=== PATIENT | female | born 1950 | race Caucasian/White ===

== ENCOUNTER → 2019-12-06 10:04 | Outpatient (CLI) | payer MEDICARE, SELFPAY ==
--- NOTE | ~2019-12-06 | MM_ITS ---
EXAMINATION: MM screening diego BI w vikash HISTORY: Screening TECHNIQUE: Craniocaudal and mediolateral oblique 3-D tomosynthesis images were obtained and synthetic 2-D images were generated. CAD analysis was submitted and interpreted. COMPARISON: Comparison to multiple prior studies sequentially, with oldest reviewed study dated 06/2013. BREAST PARENCHYMAL COMPOSITION: There are scattered areas of fibroglandular density. FINDINGS: There is clustered nonspecific calcifications in the lateral central aspect of the right br east, middle third. No mammographic evidence for malignancy in the left breast. IMPRESSION: 1. Clustered nonspecific right breast calcifications laterally. 2. Magnification views are recommended. BI-RADS Category 0: Incomplete: Needs additional imaging evaluation. Reviewed, dictated and finalized at location A.
--- NOTE | ~2019-12-06 | DEXA_ITS ---
Bone Density Report Name: Giulia Nair Age: 69 Sex: Female Ethnicity: White Date of : 1950 Indication: postmenopausal; screening for osteoporosis; height loss; Referring Provider: Daisy Coughlin Study: Bone densitometry was performed. Exam Date: December 06, 2019 Accession number: [id number] Bone Density: Region BMD T-score Z-score Classification AP Spine (L2, L3, L4) 1.019 -0.5 1.7 Normal Femoral Neck (Left) 0.815 -0.3 1.5 Normal Total Hip (Left) 1.007 0.5 2.1 Normal Femoral Neck (Right) 0.911 0.6 2.4 Normal Total Hip (Right) 1.009 0.6 2.1 Normal Total Hip Mean 1.008 0.6 2.1 Normal World Health Organization criteria for BMD impression classify patients as: Normal (T-score at or above -1.0), Osteopenia (T-score between -1.0 and -2.5), or Osteoporosis (T-score at or below -2.5). 10-year Fracture Risk: FRAX not reported because: All T-scores for Spine Total, Hip Total, Femoral Neck at or above -1.0 Clinical Information Provided by Patient: Patient maximum height was 63.3 Menopause Age: 54 No regular weight bearing exercise Onset of menses at age 12 Number of children 1 Impression: The patient has normal bone mass. Discussion: BONE DENSITY IS ABOVE THE MINIMUM DESIRABLE LEVEL AT ALL SKELETAL SITES TESTED. This patient?s bone mineral density is above the minimum desirable level (T-score -1.0 or better) at all sites measured. The patient should follow a healthful lifestyle (good nutrition with adequate calcium and vitamin D, and appropriate weight-bearing exercise). Follow-Up: Consider repeating this study in 5 years or sooner if there is some new clinical indication. Reported by: MARTIN on 12/06/2019 11:05:00 AM. Reviewed, dictated and finalized at location AHalle [facility]
== END ==
PROVIDERS: PCP Family Medicine; Visit Provider Student in an Organized Health Care Education/Training Program
DX: Z12.31 Encounter for screening mammogram for malignant neoplasm of breast (principal); Z78.0 Asymptomatic menopausal state; R92.8 Other abnormal and inconclusive findings on diagnostic imaging of breast
CPT/HCPCS: 77063; 77067; 77080

== ENCOUNTER → 2019-12-25 14:06 | Outpatient (CLI) | payer MEDICARE, SELFPAY ==
--- NOTE | ~2019-12-25 | MM_ITS ---
EXAMINATION: MM diagnostic mammo unilat RT HISTORY: Follow-up right breast calcifications TECHNIQUE: Additional 3-D tomosynthesis images of the right breast were performed and synthetic 2-D i mages were generated. CAD analysis was submitted and interpreted. COMPARISON: 12/06/2019 BREAST PARENCHYMAL COMPOSITION: Breast composed of scattered areas of fibroglandular density FINDINGS: Right breast calcifications in the outer aspect of the right breast have a benign appearanc e with spot magnification and mediolateral views. No suspicious calcifications, masses or architectur al distortion are identified to suggest malignancy. IMPRESSION: 1. No mammographic evidence for malignancy in the right breast. Benign findings. 2. Routine yearly screening mammogram and regular clinical breast examination are recommended. BI-RADS Category 2: Benign finding(s). Reviewed, dictated and finalized at location A. IMPRESSION: 1. No mammographic evidence for malignancy in the right breast. Benign findings . 2. Routine yearly screening mammogram and regular clinical breast examination a re recommended. BI-RADS Category 2: Benign finding(s).
== END ==
PROVIDERS: Visit Provider Student in an Organized Health Care Education/Training Program
DX: R92.8 Other abnormal and inconclusive findings on diagnostic imaging of breast (principal)
CPT/HCPCS: 77065

== ENCOUNTER 2021-02-26 09:27 | Outpatient (CLI) | payer MEDICARE, SELFPAY ==
--- NOTE | ~2021-02-26 | XR_ITS ---
XR knee RT 3V DATE: 02/26/2021 10:49 INDICATION: Bilateral knee pain TECHNIQUE: AP, lateral, sunrise views COMPARISON: None FINDINGS: There is tricompartment osteoarthritis, most prominent at the patellofemoral and medial com partments. Mild knee joint effusion is suggested. Diffuse osteopenia. Patellar enthesopathy at the quadriceps tendon insertion site. No fracture, dislocation, periosteal reaction or bone destruction, radiopaque intra-articular loose b shruthi or chondrocalcinosis is detected. IMPRESSION: Diffuse osteopenia Tricompartment osteoarthritis, most prominent at the medial and patellofemoral compartments Reviewed, dictated and finalized at location B.
--- NOTE | ~2021-02-26 | XR_ITS ---
XR knee LT 3V DATE: 02/26/2021 10:49 INDICATION: Chronic bilateral knee pain TECHNIQUE: AP, lateral and sunrise views COMPARISON: 11/02/2013 left lower leg FINDINGS: There is tricompartment osteoarthritis involving the patellofemoral and particularly the me dial compartments most prominently. There is prominent loss of joint space at the medial compartment with prominent periarticular spurring. There is moderate particular spurring of the patella and minim al periarticular spurring at the lateral compartment. No fracture or dislocation or joint effusion, periosteal reaction or bone destruction or radiopaque i ntra-articular loose body or chondrocalcinosis. Diffuse osteopenia. IMPRESSION: Tricompartment osteoarthritis, most prominent at the medial and patellofemoral compartmen ts Osteopenia Reviewed, dictated and finalized at location B. IMPRESSION: Tricompartment osteoarthritis, most prominent at the medial and pat ellofemoral compartments Osteopenia
== END 2021-02-26 09:28 | disposition home or self-care (01) ==
LOC: ANHIMG 09:31
PROVIDERS: PCP Family Medicine; Visit Provider Family Medicine
DX: M25.561 Pain in right knee (principal); M25.562 Pain in left knee; M85.89 Other specified disorders of bone density and structure, multiple sites; M17.0 Bilateral primary osteoarthritis of knee
CPT/HCPCS: 73562

== ENCOUNTER → 2021-04-03 15:11 | Outpatient (CLI) | payer MEDICARE, SELFPAY ==
--- NOTE | ~2021-04-03 | MM_ITS ---
EXAMINATION: MM screening diego BI w vikash HISTORY: Screening mammogram, family history of breast cancer in her mother. TECHNIQUE: Craniocaudal and mediolateral oblique 3-D tomosynthesis images were obtained and synthetic 2-D images were generated. CAD analysis was submitted and interpreted. COMPARISON: 12/25/2019, 12/06/2019 08/03/2018 BREAST PARENCHYMAL COMPOSITION: The breasts are almost entirely fatty. FINDINGS: Scattered benign-appearing calcifications are present. There is no evidence of suspicious m ass, calcification, or architectural distortion to suggest malignancy in either breast. There has bee n no suspicious interval change. IMPRESSION: 1. No mammographic evidence of malignancy. 2. Recommend routine screening mammography in one year. BI-RADS Category 2: Benign finding(s). Reviewed, dictated and finalized at location A. GE DOOR HANGER
== END ==
PROVIDERS: Visit Provider Family Medicine
DX: Z12.31 Encounter for screening mammogram for malignant neoplasm of breast (principal)
CPT/HCPCS: 77063; 77067

== ENCOUNTER → 2022-04-05 10:57 | Outpatient (CLI) | payer MEDICARE, SELFPAY ==
--- NOTE | ~2022-04-05 | MM_ITS ---
EXAMINATION: MM screening diego BI w vikash HISTORY: Screening mammogram TECHNIQUE: Craniocaudal and mediolateral oblique 3-D tomosynthesis images were obtained and synthetic 2-D images were generated. CAD analysis was submitted and interpreted. COMPARISON: 04/03/2021 bilateral screening mammogram 12/25/2019 diagnostic right mammogram 12/06/2019, 08/03/2018 bilateral screening mammogram examinations BREAST PARENCHYMAL COMPOSITION: There are scattered areas of fibroglandular density. FINDINGS: Right breast: There is an irregular asymmetric opacity at mid depth in the inner aspect of the mid ri ght breast (craniocaudal Tomosynthesis image 26/58). Diagnostic right mammogram and right breast ultrasound examination are recommended Left breast: There is no evidence of suspicious mass, calcification, or architectural distortion to s uggest malignancy in either breast. There has been no suspicious interval change. IMPRESSION: 1. 9 mm asymmetric irregular opacity in the inner mid right breast 2. Diagnostic right mammogram and right breast ultrasound examination are recommended BI-RADS Category 0: Incomplete: Needs additional imaging evaluation. Reviewed, dictated and finalized at location A. ESS STUDIES TEACHER IMPRESSION: 1. 9 mm asymmetric irregular opacity in the inner mid right breast 2. Diagnostic right mammogram and right breast ultrasound examination are recom mended BI-RADS Category 0: Incomplete: Needs additional imaging evaluation.
--- NOTE | ~2022-04-05 | DEXA_ITS ---
Bone Density Report Name: LYNETTE FRIEDMAN Age: 72 Sex: Female Ethnicity: White Date of : 1950 Indication: postmenopausal; screening for osteoporosis; height loss; Referring Provider: Daisy Coughlin Study: Bone densitometry was performed. Exam Date: April 05, 2022 Accession number: [id number] Bone Density: Region BMD T-score Z-score Classification AP Spine (L2, L3, L4) 1.015 -0.6 1.8 Normal Femoral Neck (Left) 0.769 -0.7 1.2 Normal Total Hip (Left) 0.979 0.3 2.0 Normal Femoral Neck (Right) 0.670 -1.6 0.4 Osteopenia Total Hip (Right) 0.964 0.2 1.9 Normal Total Hip Mean 0.972 0.3 2.0 Normal World Health Organization criteria for BMD impression classify patients as: Normal (T-score at or above -1.0), Osteopenia (T-score between -1.0 and -2.5), or Osteoporosis (T-score at or below -2.5). 10-year Fracture Risk(1): Major Osteoporotic Fracture 10% Hip Fracture 1.9% Reported Risk Factors: [place] (), Neck BMD=0.670, BMI=33.8 (1) FRAX(R) Version 3.08. Fracture probability calculated for an untreated patient. Fracture probability may be lower if the patient has received treatment. Previous Exams: Region Exam Age BMD T-score BMD Change BMD Change Date g/cm2 vs Baseline vs Previous AP Spine(L2, L3, L4) 04/05/2022 72 1.015 -0.6 -0.005 -0.005 12/06/2019 69 1.019 -0.5 Total Hip(Left) 04/05/2022 72 0.979 0.3 -0.027 -0.027 12/06/2019 69 1.007 0.5 Total Hip(Right) 04/05/2022 72 0.964 0.2 -0.045 -0.045 12/06/2019 69 1.009 0.6 *Denotes significance at 95% confidence level, LSC for AP Spine = 0.022 g/cm2, LSC for Total Hip = 0.027 g/cm2 Clinical Information Provided by Patient: Has used the following medications: Vitamin D, Calcium, MTV, LEVOTHYROXINE Patient maximum height was 63.2 Menopause Age: 54 Onset of menses at age 12 Number of children 1 Impression: The patient has low bone mass, based on the Right Femoral Neck T-score. The patient has an estimated ten-year risk of hip fracture of 1.9% and an estimated ten-year risk of major fracture of 10%, based on the WHO FRAX algorithm. No significant bone loss was observed. Discussion: BONE DENSITY IS LOW AT ONE OR MORE SKELETAL SITES. This patient's lowest T-score is low at one or more skeletal sites. It meets the World Health Organization's (WHO) criteria for ?low bone mass? (T-score between -1.0
== END ==
PROVIDERS: PCP Family Medicine; Visit Provider Student in an Organized Health Care Education/Training Program
DX: Z12.31 Encounter for screening mammogram for malignant neoplasm of breast (principal); Z78.0 Asymptomatic menopausal state; R92.8 Other abnormal and inconclusive findings on diagnostic imaging of breast; M85.851 Other specified disorders of bone density and structure, right thigh
CPT/HCPCS: 77063; 77067; 77080

== ENCOUNTER → 2022-04-26 07:43 | Outpatient (CLI) | payer MEDICARE, SELFPAY ==
--- NOTE | ~2022-04-26 | MMUS_ITS ---
EXAMINATION: MM diagnostic diego RT w vikash, US breast RT complete HISTORY: Follow-up right breast asymmetry TECHNIQUE: Additional 3-D tomosynthesis images of the right breast were performed and synthetic 2-D i mages were generated. CAD analysis was submitted and interpreted. High resolution complete right [place] st ultrasound was performed. COMPARISON: Comparison to multiple prior studies sequentially, with oldest reviewed study dated 01/2018. BREAST PARENCHYMAL COMPOSITION: Breast composed of scattered areas of fibroglandular density FINDINGS: MAMMOGRAPHIC FINDINGS: Persistent focal asymmetry in the central aspect of the right breast on CC view, middle third. There is no corresponding abnormality seen on MLO or mediolateral views. No suspicious calcifications. ULTRASOUND: Limited right breast ultrasound: At 12:00, 7.5 cm from the nipple there is an oval hypoechoic mass me asuring 4 mm maximum dimension. This mass is circumscribed, wider than tall, no internal vascularity and no significant posterior features. At 4:00, 5 cm from the nipple there is a 5 mm cyst. IMPRESSION: 1. Probable benign findings of the right breast. 2. Recommend 6 month follow-up diagnostic right mammogram and. Ultrasound BI-RADS category 3, probably benign findings. Reviewed, dictated and finalized at location B. R TECHNOLOGIST IMPRESSION: 1. Probable benign findings of the right breast. 2. Recommend 6 month follow-up diagnostic right mammogram and. Ultrasound BI-RADS category 3, probably benign findings.
== END ==
PROVIDERS: PCP Family Medicine; Visit Provider Student in an Organized Health Care Education/Training Program
DX: R92.8 Other abnormal and inconclusive findings on diagnostic imaging of breast (principal)
CPT/HCPCS: 76641; 77061; 77065; G0279

== ENCOUNTER 2022-11-05 09:53 | Outpatient (CLI) | payer MEDICARE, SELFPAY ==
--- NOTE | ~2022-11-05 | US_ITS ---
Consultation US DATE: 11/05/2022 11:11 INDICATION: Patient presented for biopsy of reported 4 mm right breast mass at 12:00 7.5 cm from nipp le TECHNIQUE: Real-time imaging was performed at 12:00 7.5 cm from nipple COMPARISON: 10/2022 and limited right breast ultrasound 10/18/2022 diagnostic right mammogram FINDINGS: No suspicious mass or shadowing is detected at 12:00 7.5 cm from the nipple. IMPRESSION: Biopsy was canceled; no suspicious mass or shadowing was detected BI-RADS Category 2: Benign Reviewed, dictated and finalized at Location A. Reviewed, dictated and finalized at location A.
== END 2022-11-05 09:54 | disposition home or self-care (01) ==
PROVIDERS: PCP Family Medicine; Visit Provider Surgery
DX: R92.8 Other abnormal and inconclusive findings on diagnostic imaging of breast (principal)
CPT/HCPCS: 99199

== ENCOUNTER → 2023-03-30 09:50 | Outpatient (CLI) | payer MEDICARE, SELFPAY ==
--- NOTE | ~2023-03-30 | MMUS_ITS ---
EXAMINATION: MM diagnostic diego BI w vikash, US breast RT limited HISTORY: Six-month follow-up for probably benign right breast asymmetry TECHNIQUE: Craniocaudal, mediolateral, and mediolateral oblique 3-D tomosynthesis images of the keshia ts were performed and synthetic 2-D images were generated. CAD analysis was submitted and interpreted . High resolution limited right breast ultrasound was performed. COMPARISON: 10/18/2022, 04/26/2022, 04/05/2022, 04/03/2021, 12/25/2019 BREAST PARENCHYMAL COMPOSITION: There are scattered areas of fibroglandular density. FINDINGS: MAMMOGRAPHIC FINDINGS: An asymmetry in the middle third of the right breast at the 3:00 location, 7 cm from the nipple is st able with spot compression when compared to prior mammograms dating back to 2020. There has been no s uspicious interval change. No suspicious mass, calcification, or architectural distortion are identif ied in the left breast. ULTRASOUND: A previously described sonographically detected mass at the 12:00 location, 7 cm from the nipple demo nstrates decrease in size. IMPRESSION: 1. No mammographic or sonographic evidence of malignancy. 2. Recommend routine screening mammography in one year. BI-RADS Category 2: Benign finding(s). Reviewed, dictated and finalized at location A. AL FUND SALES AGENT IMPRESSION: 1. No mammographic or sonographic evidence of malignancy. 2. Recommend routine screening mammography in one year. BI-RADS Category 2: Benign finding(s).
== END ==
PROVIDERS: PCP Family Medicine; Visit Provider Surgery
DX: N63.10 Unspecified lump in the right breast, unspecified quadrant (principal); R92.8 Other abnormal and inconclusive findings on diagnostic imaging of breast
CPT/HCPCS: 76642; 77062; 77066; G0279

== ENCOUNTER 2023-08-23 22:50 | Emergency (ER) | payer MEDICARE, MEDICAID, SELFPAY ==
--- NOTE | ~2023-08-23 | XR_ITS ---
Clinical Indication: Fatigue PA and lateral views of the chest: Comparison: 04/16/2018 Findings: The lungs are clear, without evidence of focal consolidation or pleural effusion. Cardiome diastinal silhouette is within normal limits. Bones and soft tissues are unremarkable. Impression: Normal chest. Reviewed, dictated and finalized at location . Impression: Normal chest.
[2023-08-23 22:53] VITALS: BP 141/60; PULSE 96; RESP 20; TEMP 37.1; O2SAT 94
[2023-08-23 23:12] VITALS: O2SAT 96
[2023-08-23 23:13] VITALS: BP 131/61; PULSE 87; RESP 19; TEMP 36.9; O2SAT 95
--- NOTE | 2023-08-23 23:21 | ECG_ITS ---
Measurements Intervals [place] Rate: 95 P: 37 MD: 147 QRS: -28 QRSD: 94 T: 15 QT: 335 AVG RR 630 QTc: 387 QTcB 422 QTcF 390 Interpretive Statements SINUS RHYTHM POSSIBLE ANTERIOR MYOCARDIAL INFARCTION, PROBABLY OLD[30 ms Q WAVE IN V3/V4, OR R < 0.2mV IN V4] PROBABLE OLD MYOCARDIAL INFARCT BORDERLINE ECG SEE SCANNED COPY FOR SIGNATURE MTDD
[2023-08-23 23:41] LABS: Influenza A QL RT-PCR Negative (Negative); Influenza B QL RT-PCR Negative (Negative); RSV RNA, RT-PCR Negative (Negative); SARS-CoV-2 RNA PCR Negative (Negative)
--- NOTE | 2023-08-24 00:01 | ED.GENADULT ---
HPI - General Adult General Chief complaint: Upper Respiratory Infection Stated complaint: Cold chills, cannot get warm, cough, chest tight Time Seen by Provider: 08/23/23 23:36 Source: patient Mode of arrival: ambulatory Limitations: no limitations History of Present Illness HPI narrative: Patient is a 73-year-old female who presents the ED with report of chills and fatigue. Patient reports she has not been feeling well since night. She complains of chills, fatigue, malaise, intermittent facial flushing, intermittent fevers. T-max 100.4? F. She has been taking Tylenol for her fevers. Denies sick contacts. She then experienced a 2 second episode of tightness across her chest tonight, which prompted her to come here for evaluation. Patient denies any current chest pain. Denies any other symptoms. Denies cough, congestion, rhinorrhea, sore throat, nausea, vomiting, diarrhea, abdominal pain, shortness breath, headache, numbness, rash, wounds, dysuria, hematuria. Related Data Home Medications Medication Instructions Recorded Confirmed mirabegron 50 mg tablet,extended 50 mg PO DAILY 07/10/19 07/20/23 release 24 hr (Myrbetriq) multivitamin with minerals 1 cap PO DAILY 08/21/20 07/20/23 calcium carb-vit D3-minerals 600 1 tablet PO BID 07/20/22 07/20/23 mg calcium-400 unit tablet cholecalciferol (vitamin D3) 50 50 mcg PO DAILY 07/20/22 07/20/23 mcg (2,000 unit) capsule loratadine 10 mg tablet (Allergy 10 mg PO DAILY 03/22/23 07/20/23 Relief (loratadine)) acetaminophen 650 mg 650 mg PO Q8H 07/20/23 07/20/23 tablet,extended release magnesium oxide 800 mg PO DAILY 07/20/23 07/20/23 omega-3 fatty acids-fish oil 360 1 cap PO DAILY 07/20/23 07/20/23 mg-1,200 mg capsule (Fish Oil) turmeric 400 mg capsule 450 mg PO DAILY 07/20/23 07/20/23 Allergies Allergy/AdvReac Type Severity Reaction Status Date / Time corn syrup Allergy Mild Unknown Verified 08/18/23 14:16 starch Allergy Mild Unknown Verified 08/18/23 14:16 adhesive Allergy Unknown Rash Verified 08/18/23 14:16 corn Allergy Unknown Unknown Verified 08/18/23 14:16 hydrogenated oil Allergy Unknown Unknown Uncoded 08/18/23 14:16 TAPE AdvReac Intermediate RASH Uncoded 08/18/23 14:16 Review of Systems Review of Systems: CONSTITUTIONAL: See HPI. ENT: Denies rhinorrhea, congestion, sore throat. CARDIOVASCULAR: See HPI. RESPIRATORY: Denies cough or dyspnea. GASTROINTESTINAL: Denies abdominal pain, nausea, vomiting, or diarrhea. GENITOURINARY: Denies dysuria or hematuria. MUSCULOSKELETAL: Denies back pain, extremity pain, myalgia. NEUROLOGIC: Denies headache, dizziness, numbness, or weakness. All systems reviewed & are unremarkable except as noted in HPI and below PMFSH Past Medical History Medical History Degenerative joint disease of knee Dermatitis Eczema of both hands Edema, lower extremity Hypothyroidism Left knee DJD Leg pain, bilateral Osteoarthritis Osteopenia Restless leg syndrome Right knee DJD Seasonal allergies Vitamin D deficiency Surgical History Surgical History H/O breast biopsy H/O removal of cyst 2014 History of thymectomy 1969 Family History Family History Other Diabetes mellitus Family history of cardiovascular disease Family history of coronary artery disease Family history of malignant neoplasm of breast in first degree relative Family history of malignant neoplasm of uterus Social History Social History Smoking status: Never smoker Second hand tobacco smoke exposure: No Alcohol intake: never Substance use: never Substance use type: does not use Lack of Transportation: No Lack of Food: Never True Current Housing: I Have Housing Concerned About Future Rich
[2023-08-24 00:06] VITALS: TEMP 38.1
[2023-08-24 00:13] LABS: Basophils Absolute Auto 0.1 K/mm3 (0.0-0.1); Basophils Percent Auto 0.6 % (0.2-1.2); Eosinophils Absolute Auto 0.4 K/mm3 (0-0.3); Eosinophils Percent Auto 3.6 % (0-4.4); Hematocrit 38.6 % (37.0-47.0); Hemoglobin 12.5 g/dL (12.0-15.0); Immature Granulocyte Absolute 0.07 K/mm3 (0.00-0.031); Immature Granulocyte Percent A 0.7 % (0-0.5); Lymphocytes Absolute Auto 1.76 K/mm3 (0.9-3.2); Lymphocytes Percent Auto 17.8 % (18.3-44.2); Mean Corpuscular HGB Conc 32.4 g/dl (32-36); Mean Corpuscular Hemoglobin 33.8 pg (26-34); Mean Corpuscular Volume 104.3 fl (80-100); Mean Platelet Volume 10.2 fl (7.4-10.4); Monocytes Absolute Auto 1.3 K/mm3 (0.1-0.6); Monocytes Percent Auto 12.9 % (2.6-8.5); Neutrophils Absolute Auto 6.4 K/mm3 (1.3-6.7); Neutrophils Percent Auto 64.4 % (45.5-73.1); Platelet Count Result 274 k/mm3 (150-375); White Blood Count 9.9 K/mm3 (4.5-10.0)
[2023-08-24 00:29] LABS: Alanine Aminotransferase 32 U/L (6-35); Albumin Level 4.3 g/dL (3.5-5.1); Alkaline Phosphatase 121 U/L (38-126); Anion Gap 6 mmol/L (4-12); Aspartate Amino Transferase 35 U/L (14-36); Bilirubin,Total 0.7 mg/dL (0.2-1.3); Blood Urea Nitrogen 27 mg/dL (7-17); Carbon Dioxide 29 mmol/L (22-30); Chloride 104 mmol/L (98-107); Estimated CRCL calculation 63 ml/min; Estimated Glomerular Filt Rate > 60; Glucose 109 mg/dL (65-110); Potassium 4.1 mmol/L (3.4-5.0); Sodium 139 mmol/L (137-145)
[2023-08-24] MEDS: ACETAMINOPHEN 500 MG TABLET 1000 MG PO (00:41)
[2023-08-24 01:07] LABS: Appearance Urine Clear (Clear); Bacteria Urine Rare /hpf; Bilirubin Urine Negative (Negative); Blood Urine Negative (Negative); Color Urine Yellow (Yellow); Glucose Urine UA Negative (Negative); Ketones Urine Negative (Negative); Leukocyte Esterase Ur 2+ LEU/UL (Negative); Nitrate Urine Negative (Negative); Non Pathogenic Casts 0-2; Protein Urine Negative (Negative); RBC Urine 0-2 /hpf (0-2); Specific Grav Ur 1.016 (1.001-1.035); Squamous Epithelial Cell Urine Moderate /hpf (Few); Urobilinogen Urine 0.2 mg/dL (<2.0); pH Urine 6.5 (5.0-9.0)
[2023-08-24 01:11] LABS: Add Urine Microscopic? YES
[2023-08-24 01:14] LABS: Troponin I < 0.012 ng/mL (0.000-0.034)
[2023-08-24 01:17] LABS: NT Pro B Type Natriuretic Pept 84 pg/mL (19.9-100)
[2023-08-24 01:38] VITALS: PULSE 92; RESP 14; TEMP 37.3; O2SAT 96
== END 2023-08-24 01:40 | disposition home or self-care (01) ==
PROVIDERS: Emergency Medicine; Emergency Provider Physician Assistant; PCP Family Medicine
DX: B34.9 Viral infection, unspecified (principal); R50.9 Fever, unspecified; Z20.822 Contact with and (suspected) exposure to COVID-19; E03.9 Hypothyroidism, unspecified; E55.9 Vitamin D deficiency, unspecified; G25.81 Restless legs syndrome; M17.0 Bilateral primary osteoarthritis of knee; R94.31 Abnormal electrocardiogram [ECG] [EKG]
CPT/HCPCS: 36415; 71046; 80053; 81001; 83880; 84484; 85025; 87086; 87637; 93005; 99284; A9270

== ENCOUNTER 2023-09-14 09:19 | Outpatient (CLI) | payer MEDICARE, MEDICAID, SELFPAY ==
--- NOTE | ~2023-09-14 | MMUS_ITS ---
EXAMINATION: MM diagnostic diego RT w vikash, US breast RT limited HISTORY: Follow-up right breast mass TECHNIQUE: Additional 3-D tomosynthesis images of the right breast were performed and synthetic 2-D i mages were generated. CAD analysis was submitted and interpreted. High resolution Limited right breas t ultrasound was performed. COMPARISON: Comparison to multiple prior studies sequentially, with oldest reviewed study dated 03/16. BREAST PARENCHYMAL COMPOSITION: Not dense: There are scattered areas of fibroglandular density. FINDINGS: MAMMOGRAPHIC FINDINGS: Focal asymmetry medially in the right breast on CC view is stable compared with prior studies. No new masses, calcifications or architectural distortion in the right breast to suggest malignancy. ULTRASOUND: Limited right breast ultrasound: At 12:00, 7.5 cm from the nipple, there is a 8 mm intramammary lymph node. There is an adjacent 3 mm cyst. No suspicious masses to suggest malignancy. IMPRESSION: 1. No evidence for malignancy in the right breast. Benign findings. 2. Routine yearly screening mammogram and regular clinical breast examination are recommended. BI-RADS Category 2: Benign finding(s). Reviewed, dictated and finalized at location B. IMPRESSION: 1. No evidence for malignancy in the right breast. Benign findings. 2. Routine yearly screening mammogram and regular clinical breast examination a re recommended. BI-RADS Category 2: Benign finding(s).
== END 2023-09-14 09:20 ==
PROVIDERS: PCP Family Medicine; Visit Provider Surgery
DX: N63.10 Unspecified lump in the right breast, unspecified quadrant (principal); R92.8 Other abnormal and inconclusive findings on diagnostic imaging of breast
CPT/HCPCS: 76642; 77061; 77065; G0279

== ENCOUNTER 2023-11-24 11:08 | Outpatient (CLI) | payer MEDICARE, SELFPAY ==
--- NOTE | 2023-11-24 11:32 | ECG_ITS ---
Test Date: 2023-11-24 11:40:46 Measurements Intervals [place] Rate: 66 P: -12 RI: 159 QRS: -30 QRSD: 86 T: -19 QT: 379 QTc: 399 Interpretive Statements SINUS RHYTHM ANTERIOR MYOCARDIAL INFARCTION , OF INDETERMINATE AGE CONSIDER INFERIOR MYOCARDIAL INFARCTION , PROBABLY OLD BORDERLINE ST-T WAVE ABNORMALITY- LAT/HIGH LAT LEADS BASELINE ARTIFACT- I, II, AVR, V3-V6 ABNORMAL ECG No previous ECG available for comparison Electronically Signed On 11-24-2023 11:47:22 CDT by Luis Vela D.O.
[2023-11-24 11:51] LABS: Basophils Percent Auto 0.7 % (0.2-1.2); Eosinophils Absolute Auto 0.3 K/mm3 (0-0.3); Eosinophils Percent Auto 4.8 % (0-4.4); Hematocrit 42.3 % (37.0-47.0); Hemoglobin 13.8 g/dL (12.0-15.0); Immature Granulocyte Absolute 0.01 K/mm3 (0.00-0.031); Immature Granulocyte Percent A 0.2 % (0-0.5); Lymphocytes Absolute Auto 1.46 K/mm3 (0.9-3.2); Lymphocytes Percent Auto 26.7 % (18.3-44.2); Mean Corpuscular HGB Conc 32.6 g/dl (32-36); Mean Corpuscular Hemoglobin 34.2 pg (26-34); Mean Platelet Volume 10.8 fl (7.4-10.4); Monocytes Absolute Auto 0.7 K/mm3 (0.1-0.6); Monocytes Percent Auto 13.2 % (2.6-8.5); Neutrophils Percent Auto 54.4 % (45.5-73.1); Platelet Count Result 206 k/mm3 (150-375); Red Blood Count 4.03 M/mm3 (4.2-5.4); Red Cell Distribution Width 13.4 % (11.5-14.5); White Blood Count 5.5 K/mm3 (4.5-10.0)
[2023-11-24 12:02] LABS: Anion Gap 10 mmol/L (4-12); Blood Urea Nitrogen 35 mg/dL (7-17); Calcium 9.1 mg/dL (8.4-10.2); Carbon Dioxide 29 mmol/L (22-30); Chloride 104 mmol/L (98-107); Estimated Glomerular Filt Rate > 60; Glucose 98 mg/dL (65-110); Potassium 4.2 mmol/L (3.4-5.0); Sodium 143 mmol/L (137-145)
== END 2023-11-24 11:09 | disposition home or self-care (01) ==
PROVIDERS: PCP Family Medicine; Visit Provider Nurse Practitioner Family
DX: E55.9 Vitamin D deficiency, unspecified (principal); I10 Essential (primary) hypertension; E03.9 Hypothyroidism, unspecified; R53.83 Other fatigue; R94.31 Abnormal electrocardiogram [ECG] [EKG]; I25.2 Old myocardial infarction; M25.562 Pain in left knee; M25.561 Pain in right knee; G89.29 Other chronic pain; M85.80 Other specified disorders of bone density and structure, unspecified site; N39.41 Urge incontinence
CPT/HCPCS: 36415; 80048; 85025; 93005

== ENCOUNTER 2024-01-10 07:19 | Outpatient (CLI) | payer MEDICARE, SELFPAY ==
--- NOTE | ~2024-01-10 | NM_ITS ---
EXAMINATION: NM kavita stress w perfusion DATE: 01/10/2024 11:06 INDICATION: Other forms of dyspnea TECHNIQUE: Rest images were obtained following intravenous administration of 11 mCi Tc99m tetrofosmin (Myoview). The patient was infused intravenously with Lexiscan (Regadenoson). Then, 34 mCi Tc99m tet rofosmin (Myoview) was administered intravenously, and stress images were obtained. Data was reconstr ucted into short axis and horizontal and vertical long axis SPECT images. Gated SPECT images were als o obtained. COMPARISON: None. FINDINGS: There is no definite reversible or fixed perfusion abnormality on the post stress imaging t o suggest ischemia or infarction. There is normal left ventricular chamber size, wall motion and eje ction fraction. Left ventricular ejection fraction measures >70%. IMPRESSION: 1. Normal myocardial perfusion at rest and during stress. 2. Left ventricular ejection fraction measuring >70%. Reviewed, dictated and finalized at location A.
--- NOTE | 2024-01-10 07:25 | ECHO_ITS ---
Patient Info Name: Giulia Nair Age: 73 years : 1950 Gender: Female Ht: 62 in Wt: 180 lbs BSA: 1.92 m2 HR: 74 bpm BP: 137 / 69 mmHg Heart Rhythm: Sinus Rhythm Technical Quality: Fair Exam Date: 01/10/2024 7:40 AM Exam Location: Echo Lab Patient Status: Outpatient Admit Date: 01/10/2024 Staff Ordering Physician: Luis Vela DO Trading Manager: Jess Morales RDCS Attending Provider: Luis Vela DO Referring Physician: Dane DOVER; Exam Type: CA echo doppler color flow Study Info Indications R06.09 - Other forms of dyspnea Complete two-dimensional, color flow and Doppler transthoracic echocardiogram is performed. Summary 1. Complete two-dimensional, color flow and Doppler transthoracic echocardiogram is performed. 2. Left ventricular chamber dimension is normal. 3. Left ventricular systolic function is normal, estimated at 60-65%. 4. The left ventricular diastolic function is grade I diastolic dysfunction. 5. E/e' 13 is mildly elevated. 6. There is trace aortic valve regurgitation. 7. The mitral valve has mildly calcified annulus. 8. There is trace tricuspid valve regurgitation. 9. No pulmonary hypertension, estimated pulmonary arterial systolic pressure is 37 mmHg. Left Ventricle E/e' 13 is mildly elevated. Left ventricular chamber dimension is normal. Left ventricular systolic function is normal, estimated at 60-65%. The left ventricular diastolic function is grade I diastolic dysfunction. Right Ventricle Right ventricular systolic function is normal and with normal TAPSE 2.0 cm. Right ventricular chamber dimension is normal. Left Atria Left atrial chamber dimension is normal. Right Atria Right atrial chamber dimension is normal. Aortic Valve The aortic valve is trileaflet. There is no aortic valve stenosis. There is trace aortic valve regurgitation. Pulmonic Valve There is no pulmonic regurgitation. Mitral Valve The mitral valve has mildly calcified annulus. There is no mitral valve stenosis. There is no mitral valve regurgitation. Tricuspid Valve There is trace tricuspid valve regurgitation. No pulmonary hypertension, estimated pulmonary arterial systolic pressure is 37 mmHg. Pericardium/Pleural There is no pericardial effusion. Inferior Vena Cava Normal inferior vena cava with >50% collapse upon inspiration consistent with normal right atrial pressure, 5 mmHg. Aorta The aortic root size at the sinus of Valsalva is normal. Left Ventricular Outflow Tract Name Value Normal LVOT 2D LVOT Diameter 2.0 cm LVOT Doppler LVOT Peak Gradient 7 mmHg LVOT Mean Gradient 3 mmHg LVOT VTI 26 cm LVOT VTI/AV VTI Ratio 0.7 LVOT Stroke Volume 79 ml LVOT CO 6.1 l/min LVOT CI 3.2 l/min/m2 Pulmonic Valve Name Value Normal RVOT Doppler
--- NOTE | 2024-01-10 07:26 | EST_ITS ---
Patient Info Name: Giulia Nair Age: 73 years : 1950 Gender: Female Ht: 59 in Wt: 180 lbs BSA: 1.89 m2 Exam Date: 01/10/2024 9:31 AM Exam Location: Echo Lab Patient Status: Outpatient Admit Date: 01/10/2024 Staff Ordering Physician: Luis Vela DO Attending Provider: Luis Vela DO Exercise Technologist: Rosalina Castellon RDCS Exercise Physician: Luis Vela DO Exam Type: CA stress kavita w NM Study Info Indications R06.09 - Other forms of dyspnea A regadenoson stress test was performed. Summary 1. 1. Negative lexiscan stress test for ischemic ST changes by ECG criteria. 2. 2. Stable hemodynamics throughout the test. 3. 3. Nuclear scan to follow and will be reported separately. Please correlate with it. 4. 4. Patient informed of the above results. Protocol: Lexiscan Stress ECG Details Stage: REST Duration (min): 1 min : 1 sec HR (bpm): 64 SBP (mmHg): 117 DBP (mmHg): 59 Stage: REST Duration (min): 7 min : 11 sec HR (bpm): 69 SBP (mmHg): 117 DBP (mmHg): 59 Stage: STAGE 1 Duration (min): 1 min : 0 sec HR (bpm): 95 SBP (mmHg): 136 DBP (mmHg): 96 Stage: RECOVERY Duration (min): 1 min : 0 sec HR (bpm): 97 SBP (mmHg): 106 DBP (mmHg): 88 Stage: RECOVERY Duration (min): 2 min : 0 sec HR (bpm): 84 SBP (mmHg): 106 DBP (mmHg): 88 Stage: RECOVERY Duration (min): 3 min : 0 sec HR (bpm): 83 SBP (mmHg): 123 DBP (mmHg): 76 Stage: RECOVERY Duration (min): 3 min : 35 sec HR (bpm): 93 SBP (mmHg): 123 DBP (mmHg): 76 Rest HR: 69 bpm Peak HR: 97 bpm Rest Sys BP: 117 mmHg Peak Sys BP: 136 mmHg Max Pred HR: 146 bpm % Max Pred HR: 66 % Target HR: 124 bpm Max RPP: 13,192 bpm*mmHg Termination Reason: Completed protocol Cardiac Symptoms: Shortness of breath, Upset stomach Total Time: 1 min : 0 sec Rest Ring BP: 59 mmHg Peak Ring BP: 96 mmHg Total Dose: 0.4 mg Resting ECG Sinus rhythm. Stress ECG No ST changes. Arrhythmias None. Report Signatures
== END 2024-01-10 07:20 | disposition home or self-care (01) ==
PROVIDERS: PCP Family Medicine; Visit Provider Internal Medicine Cardiovascular Disease
DX: R06.09 Other forms of dyspnea (principal); I51.89 Other ill-defined heart diseases; I34.89 Other nonrheumatic mitral valve disorders
CPT/HCPCS: 78452; 93017; 93306; A9502; J2785

== ENCOUNTER 2024-01-18 07:44 | Outpatient (CLI) | payer MEDICARE, SELFPAY ==
[2024-01-18 10:00] LABS: Basophils Absolute Auto 0.1 K/mm3 (0.0-0.1); Basophils Percent Auto 1.1 % (0.2-1.2); Eosinophils Absolute Auto 0.4 K/mm3 (0-0.3); Eosinophils Percent Auto 5.9 % (0-4.4); Hematocrit 41.9 % (37.0-47.0); Hemoglobin 13.7 g/dL (12.0-15.0); Immature Granulocyte Absolute 0.03 K/mm3 (0.00-0.031); Immature Granulocyte Percent A 0.5 % (0-0.5); Lymphocytes Absolute Auto 1.59 K/mm3 (0.9-3.2); Lymphocytes Percent Auto 24.5 % (18.3-44.2); Mean Corpuscular HGB Conc 32.7 g/dl (32-36); Mean Corpuscular Hemoglobin 34.6 pg (26-34); Mean Corpuscular Volume 105.8 fl (80-100); Mean Platelet Volume 11.1 fl (7.4-10.4); Monocytes Absolute Auto 0.8 K/mm3 (0.1-0.6); Monocytes Percent Auto 12.3 % (2.6-8.5); Neutrophils Absolute Auto 3.6 K/mm3 (1.3-6.7); Neutrophils Percent Auto 55.7 % (45.5-73.1); Platelet Count Result 244 k/mm3 (150-375); Red Blood Count 3.96 M/mm3 (4.2-5.4); Red Cell Distribution Width 13.6 % (11.5-14.5); White Blood Count 6.5 K/mm3 (4.5-10.0)
[2024-01-18 10:12] LABS: Prothrombin Time 13.6 Seconds (11.1-14.7)
[2024-01-18 10:13] LABS: Partial Thromboplastin Time 33.7 Seconds (22.3-36.8)
[2024-01-18 10:15] LABS: Albumin Level 4.4 g/dL (3.5-5.1); Anion Gap 9 mmol/L (4-12); Blood Urea Nitrogen 32 mg/dL (7-17); Carbon Dioxide 31 mmol/L (22-30); Chloride 100 mmol/L (98-107); Estimated Glomerular Filt Rate > 60; Glucose 100 mg/dL (65-110); Potassium 4.3 mmol/L (3.4-5.0); Sodium 140 mmol/L (137-145)
[2024-01-18 10:16] LABS: Hemoglobin A1C 5.5 % (<5.7)
[2024-01-18 11:18] LABS: MRSA (PCR) NOT DETECTED (NOT DETECTE)
[2024-01-18 11:25] LABS: Anisocytosis 1+; Platelet Estimate Adequate (Adequate); Schistocytes None Seen
[2024-01-18 12:50] LABS: Add Urine Microscopic? YES; Appearance Urine Clear (Clear); Bacteria Urine None Seen /hpf; Bilirubin Urine Negative (Negative); Blood Urine Negative (Negative); Color Urine Yellow (Yellow); Glucose Urine UA Negative (Negative); Ketones Urine Negative (Negative); Leukocyte Esterase Ur Trace LEU/UL (Negative); Nitrate Urine Negative (Negative); Non Pathogenic Casts 0-2; Protein Urine Negative (Negative); RBC Urine 0-2 /hpf (0-2); Specific Grav Ur 1.014 (1.001-1.035); Squamous Epithelial Cell Urine Occasional /hpf (Few); Urobilinogen Urine 0.2 mg/dL (<2.0); WBC Urine 0-5 /hpf (0-3)
[2024-01-18 13:27] LABS: Urine Cotinine NEGATIVE
== END 2024-01-18 07:45 | disposition home or self-care (01) ==
PROVIDERS: PCP Family Medicine; Visit Provider Orthopaedic Surgery
DX: Z01.812 Encounter for preprocedural laboratory examination (principal); M17.12 Unilateral primary osteoarthritis, left knee
CPT/HCPCS: 80048; 80307; 81001; 82040; 83036; 85025; 85610; 85730; 87641

== ENCOUNTER 2024-02-01 01:35 | Day surgery (SDC) | payer MEDICARE, SELFPAY ==
[2024-01-18 08:37] VITALS: BMI 33.7
--- NOTE | 2024-01-18 08:46 | PC.NURSE ---
Report to the Outpatient Waiting Room, entrance under the green pavilion located off [facility], at time __6 AM on date _02/01/24 . Planned Procedure Time: _7:30 AM .? Time changes happen often and if your time is changed the preop area will call you the afternoon before. - You and your visitor will be asked to self-screen and do not enter if you have any COVID symptoms. Please call surgeon if you need to reschedule. - A mask is optional within the hospital at this time. Patients may have clear liquids (water, carbonated beverages, clear teas, apple juice) until 3 hours prior to surgery (4:30AM)with a maximum of 20 ounces. - No food from midnight until time of surgery and no smoking - Infants may have breast milk until 4 hours before surgery, infant formula 6 hours prior to surgery. - Children will be allowed to drink immediately following surgery.? If applicable, please bring a bottle or sippy cup to assist with drinking. Juice, water, soda, and popsicles are readily available.? For infants on formula, please bring formula the day of surgery.? Pacifiers are allowed. Take only the following medications with a SIP of water on the morning of surgery: _LEVOTHYROXINE, DO NOT STOP ANY OF YOUR OTHER PRESCRIPTION MEDICATIONS PRIOR TO SURGERY EXCEPT THE FOLLOWING Medications to discontinue per physician _PT STATES HOLD ASPIRIN AND MELOXICAM 7 DAYS PRE OP PER DR GALLAGHER LAST DOSE 01/24/24. HOLD ALL VITAMINS AND SUPPLEMENTS 3 DAYS PRE OP LAST DOSE 01/28/24 Please no make-up, nail kyrgyz, hairspray, perfume, deodorant, or body powder the day of surgery.? No jewelry (including any body piercings) or valuables the day of surgery, leave them at home.? Please take a shower or bath the night before, or the morning of, surgery with an antibacterial soap.? Wear comfortable, loose fitting clothing.? Children are encouraged to wear pajamas. - Jewelry must be removed prior to entering the operating room.? Rings and piercings that are not removed may be cut off. - The hospital will not accept responsibility for valuables.? - Please leave all valuables, including medications, at home the day of surgery. If you are going home after surgery, a licensed mobile lounge driver or operator must drive you home.? - NO public transportation without another adult if you receive anesthesia. - We recommend that an adult stay with you for 24 hours following discharge. - We also recommend that you do not drive, make important decision, drink alcoholic beverages, or take any drugs that were not prescribed by your health care provider for at least 24 hours after your discharge time. Follow any additional instructions given to you from your surgeon. VERBAL AND WRITTEN instructions given to __PATIENT and asked if any additional questions and then verbalized understanding. Patient advised to call surgeon office or pre surgery nurse liaison [phone] if any additional questions.
[2024-01-18 09:08] VITALS: BP 135/65; PULSE 71; RESP 18; TEMP 37.1; O2SAT 98
[2024-02-01] VITALS (14 sets, daily range): BP systolic 101–156; BP diastolic 49–90; PULSE 58–92; RESP 12–22; TEMP 36.1–37.2; O2SAT 94–100
--- NOTE | ~2024-02-01 | XR_ITS ---
EXAMINATION: [id number] DATE: 02/01/2024 10:30 INDICATION: Total left knee arthroplasty. Postop. TECHNIQUE: 2 views of left knee were obtained. COMPARISON: None. FINDINGS: There is a total left knee arthroplasty without patellar resurfacing in near-anatomic align ment. No fracture. There is gas in the soft tissues, consistent with recent surgery. Anterior skin st aples are noted. IMPRESSION: 1. Total left knee arthroplasty in near-anatomic alignment. Reviewed, dictated and finalized at location A.
[2024-02-01] MEDS: LACTATED RINGERS 1,000 ML 30 ML IV CONT ×2 (07:10→10:03)
[2024-02-01] MEDS: ACETAMINOPHEN 500 MG TABLET 1000 MG PO (07:17)
--- NOTE | 2024-02-01 07:18 | WPDHPUPDATE1 ---
History and Physical Update Update Date/Time: 02/01/24 07:18 History and Physical has been reviewed, including an updated exam of the patient. There are NO changes in the patient's condition. Risks, benefits, and alternatives have been discussed and questions answered. Patient agrees to proceed with procedure.
--- NOTE | 2024-02-01 07:19 | WPDANESEPPF ---
Anes - Initial Pre Proc Eval Procedure: Operation Date: 02/01/24 07:30 Proposed Procedures p Left Total Knee Arthroplasty - Lance Rogers MD Date/Time: 02/01/24 07:19 Surgeon: Lance Rogers MD Pre Op Diagnosis: left knee oa Patient Data Age: 73 Gender: F Height: 1.52 m Weight: 78.5 kg Last Vital Signs Temp 98.7 F 01/18/24 09:08 Pulse 71 01/18/24 09:08 Resp 18 01/18/24 09:08 BP 135/65 01/18/24 09:08 Pulse Ox 98 01/18/24 09:08 O2 Del Method Room Air 01/18/24 09:08 Allergies Allergy/AdvReac Type Severity Reaction Status Date / Time corn syrup Allergy Mild Hives Verified 01/23/24 14:08 starch Allergy Mild Hives Verified 01/23/24 14:08 adhesive Allergy Unknown Rash Verified 01/23/24 14:08 corn Allergy Unknown Hives Verified 01/23/24 14:08 hydrogenated oil Allergy Unknown Hives Uncoded 01/23/24 14:08 TAPE AdvReac Intermediate RASH Uncoded 01/23/24 14:08 Home Medications Medication Instructions Recorded Confirmed Type nystatin 100,000 unit/gram topical 1 applic topical BID #180 grams 05/31/19 01/23/24 Rx powder (Nystop) mirabegron 50 mg tablet,extended 50 mg PO DAILY 07/10/19 01/23/24 History release 24 hr (Myrbetriq) multivitamin with minerals 1 cap PO DAILY 08/21/20 01/23/24 History calcium carb-vit D3-minerals 600 1 tablet PO BID 07/20/22 01/23/24 History mg calcium-400 unit tablet cholecalciferol (vitamin D3) 50 50 mcg PO DAILY 07/20/22 01/23/24 History mcg (2,000 unit) capsule clotrimazole-betamethasone 1 1 applic topical BID 4 weeks #45 01/18/23 01/23/24 Rx %-0.05 % topical cream grams loratadine 10 mg tablet (Allergy 10 mg PO PRN PRN Allergy Symptoms 03/22/23 01/23/24 History Relief (loratadine)) levothyroxine 137 mcg tablet 137 mcg PO DAILY #90 tabs 05/31/23 02/01/24 Rx acetaminophen 650 mg 650 mg PO PRN PRN Pain 07/20/23 01/23/24 History tablet,extended release magnesium oxide 800 mg PO DAILY 07/20/23 01/23/24 History meloxicam 15 mg tablet 15 mg PO DAILY #90 tabs 10/24/23 01/23/24 Rx loperamide 2 mg tablet 2 mg PO Q6H PRN Diarrhea 11/28/23 01/23/24 History nitroglycerin 0.6 mg sublingual 0.4 mg sublingual Q5M PRN chest 11/28/23 01/23/24 Rx tablet pain #60 tabs L.acidophil,salivari-Bifido 1 cap PO DAILY 01/18/24 01/23/24 History bifidum-Strep thermoph 175 mg capsule (Acidophilus Probiotic Blend) aspirin 81 mg tablet,delayed 81 mg PO HS 01/18/24 02/01/24 History release (Adult Low Dose Aspirin) chlorhexidine gluconate 4 % 1 applic topical DAILY #237 mL 01/23/24 01/23/24 Rx topical liquid (Hibiclens) ropinirole 2 mg tablet 2 mg PO BID #180 tabs 01/23/24 01/23/24 Rx Patient hx anesthesia problems: none Family hx anesthesia problems: none Results Review: All pre-operative results and documents have been reviewed as part of the pre-operative evaluation. [facility] Past Medical History Medical History Degenerative joint disease of knee Dermatitis Eczema of both hands Edema, lower extremity HTN (hypertension) Hypothyroidism Left knee DJD Leg pain, bilateral Osteoarthritis Osteopenia Other fatigue Restless leg syndrome Right knee DJD Seasonal allergies Vitamin D deficiency Surgical History Surgical History H/O breast biopsy H/O removal of cyst 2014 History of thymectomy 1969 Family History Family History Other Diabetes mellitus Family history of cardiovascular disease Family history of coronary artery disease Family history of malignant neoplasm of breast in first degree relative Family history of malignant neoplasm of uterus Social History Social History Smoking status: Never smoker Second hand tobacco smoke exposure: No Additional smoking assessment comments
--- NOTE | 2024-02-01 07:38 | WPDANESPNB ---
Anes - Peripheral Nerve Block Date/Time: 02/01/24 07:38 I have discussed with the patient/family/POA the placement of a peripheral nerve block for post-operative pain management, including associated risks, benefits, complications, and side effects. Alternative methods of post-operative analgesia were detailed. Questions were solicited and answers provided to the satisfaction of the patient/family/POA. Time-Out: A pre-procedural Time-Out was completed immediately before starting the procedure and confirmed: Patient Identification, Site, Procedure, Patient Position and the Availability of Requisite Equipment. Clinical Indications: Acute post-operative pain management requested by the operative surgeon. Nerve Block Insertion Note Anes-nerve block: adductor canal left Patient position: supine Skin prep: chlorhexidine Needle: 22 gauge, stimulating, insulated echogenic needle. Needle length: 80 mm Technique: ultrasound Injectate: other (Bupiv 0.5% 15 mls. ) Observations: tolerated well Complications: none Procedure start time:: 723 Procedure end time:: 1
[2024-02-01] MEDS: ceFAZolin 2 GM/D5W 50 ML 2 GM/50 ML BAG IVPB ×2 (07:58→16:45)
[2024-02-01] MEDS: SODIUM CHLORIDE 0.9% IV 37.7 ML, MORPHINE SULFATE INJ (*CRX) 2 MG, ROPivacaine HCL 1% 2... INFILTRATE (08:23)
[2024-02-01] MEDS: GENTAMICIN BONE CEMENT REFOBACIN 1 EACH TOPICAL (08:55)
[2024-02-01] MEDS: TRANEXAMIC ACID 1,000 MG/10 ML AMPUL 1000 MG IV PUSH (09:19)
--- NOTE | 2024-02-01 10:08 | W.PM.PROC2 ---
Procedure Note - Detailed Date of Procedure 02/01/24 Pre-op Diagnosis left knee oa Post-op Diagnosis Same Procedure Performed L TKA Surgeon Lance Rogers MD Anesthesia General Description of Procedure THE LEFT KNEE WAS PREPPED AND DRAPED IN THE STERILE FASHION. A MIDLINE SKIN INCISION WAS MADE. A MEDIAL PARAPATELLAR ARTHROTOMY WAS MADE. THE PATELLA WAS EVERTED. THERE WAS TRICOMPARTMENT DJD. THERE WAS MINIMAL PATELLA DJD. AN INTRAMEDULLARY JESSICA WAS PLACED IN THE FEMUR. A DISTAL FEMORAL CUT WAS MADE IN 5 DEGREES OF VALGUS REMOVING APPROXIMATELY 9 MM OF BONE FROM THE DISTAL FEMUR. THE FEMUR WAS SIZED TO 60. A 60 FEMORAL CUTTING BLOCK WAS PLACED IN 3 DEGREES OF EXTERNAL ROTATION AND IN ALIGNMENT WITH KASSIE'S LINE AND THE TRANSEPICONDYLAR AXIS. ANTERIOR POSTERIOR AND CHAMFER CUTS WERE MADE. THE CUTS WERE EXCELLENT. NEXT AN INTRAMEDULLARY CUTTING GUIDE WAS PLACED IN THE TIBIA. A TRANS TIBIAL CUT WAS MADE ALONG THE LONG AXIS OF THE TIBIA. APPROXIMATELY 10 MM OF BONE WAS REMOVED FROM THE HIGH SIDE OF THE TIBIA. THE TIBIA WAS THEN PLANED TO A SMOOTH SURFACE. POSTERIOR FEMORAL OSTEOPHYTES WERE REMOVED FROM THE FEMORAL CONDYLES. A 67 TIBIAL TRIAL WAS PLACED IN ALIGNMENT WITH THE 1/3 MEDIAL ASPECT OF THE TIBIAL TUBERCLE. THEN A 60 FEMORAL TRIAL COMPONENT WAS PLACED. BOTH HAD EXCELLENT FITS. EVENTUALLY A 10 MM CR POLYETHYLENE TRIAL COMPONENT WAS PLACED. THE KNEE WAS TAKEN THROUGH A RANGE OF MOTION. THE KNEE CAME OUT TO FULL EXTENSION. THERE WAS NO ABNORMAL TILT TO THE PATELLA. THERE WAS GOOD A/P AND VARUS/VALGUS STABILITY. THERE WAS NO EXCESSIVE ROLL BACK WITH FLEXION. THE TRIAL COMPONENTS WERE REMOVED. THEN A 60 FEMORAL COMPONENT AND 67 TIBIAL COMPONENT WITH A 10 CR POLYETHYLENE COMPONENT WERE CEMENTED INTO PLACE. ONCE THE CEMENT WAS HARD THE KNEE WAS TAKEN THROUGH A ROM AGAIN AND FOUND TO BE STABLE WITH NO PATELLA TILT NO EXCESSIVE ROLL BACK WITH FLEXION AND GOOD STABILITY WITH COMPLETE AND FULL EXTENSION. THE KNEE WAS IRRIGATED WITH STERILE BETADINE AND WATER FOR ABOUT 3 MINUTES. THE BLEEDERS WERE CAUTERIZED. THE ARTHROTOMY WAS REPAIRED WITH NUMBER 1 VICRYL. THE SUB CUTANEOUS LAYER WITH 2-0 VICRYL AND THE SKIN WITH JEAN. THE WOUND WAS WASHED AND A STERILE DRESSING WAS APPLIED. PATIENT WAS EXTUBATED. Estimated Blood Loss -150.0 Pathology None sent Complications No immediate complications Condition Stable Disposition PACU
[2024-02-01] MEDS: fentaNYL CITRATE INJ (*CRX) 100 MCG/2 ML VIAL 25 MCG IV PUSH ×4 (10:24→10:36)
--- NOTE | 2024-02-01 12:05 | ADMGEN ---
This patient, Giulia Nair, was admitted to 3 Med Surg Room 328-01. Patient/family oriented to hospital policies and general routines including ID bracelet, bed and alarms, visiting hours, pain management, procedures, bathroom and other care routines, personal items, smoking policy, room service/diet, and visiting hours. Information on how to activate the Rapid Response Team has been discussed. Patient/Family are encouraged to report perceived risks to care and to ask questions if they do not understand what they are told or what they should do.
[2024-02-01] MEDS: oxyCODONE/ACETAMINOPHEN (*CRX) 10-325 MG TABLET 1 TAB PO ×2 (14:03→20:09)
[2024-02-01] MEDS: SENNA/DOCUSATE SODIUM TABLET 2 TAB PO ×2 (14:04→16:46)
[2024-02-01] MEDS: polyethylene glycoL 3350 17 GM POWD.PACK PO (14:04)
[2024-02-01] MEDS: CELECOXIB 200 MG CAPSULE PO ×2 (14:04→16:46)
[2024-02-01] MEDS: CHOLECALCIFEROL 1,000 UNITS TABLET 2000 UNITS PO (14:04)
[2024-02-01] MEDS: FAMOTIDINE 20 MG TABLET PO ×2 (14:05→20:09)
[2024-02-01] MEDS: ASPIRIN 325 MG ENTERIC TABLET PO ×2 (14:05→20:09)
[2024-02-01] MEDS: CALCIUM/VITAMIN D 500 MG/5 MCG (200 I.U.) TABLET PO (16:46)
[2024-02-02] MEDS: ceFAZolin 2 GM/D5W 50 ML 2 GM/50 ML BAG IVPB ×2 (00:53→09:43)
[2024-02-02 01:01] VITALS: BP 110/66; PULSE 71; RESP 18; TEMP 37.1; O2SAT 98
[2024-02-02 05:01] VITALS: BP 105/52; PULSE 91; RESP 20; TEMP 37.4; O2SAT 91
[2024-02-02] MEDS: LEVOTHYROXINE SODIUM 112 MCG, LEVOTHYROXINE SODIUM 25 MCG 137 MCG PO (06:20)
[2024-02-02] MEDS: oxyCODONE/ACETAMINOPHEN (*CRX) 10-325 MG TABLET 1 TAB PO (06:33)
[2024-02-02 07:47] LABS: Anion Gap 7 mmol/L (4-12); Blood Urea Nitrogen 24 mg/dL (7-17); Calcium 8.5 mg/dL (8.4-10.2); Carbon Dioxide 31 mmol/L (22-30); Chloride 99 mmol/L (98-107); Estimated CRCL calculation 56 ml/min; Estimated Glomerular Filt Rate > 60; Glucose 112 mg/dL (65-110); Potassium 4.3 mmol/L (3.4-5.0); Sodium 137 mmol/L (137-145)
[2024-02-02 08:23] LABS: Basophils Absolute Auto 0.1 K/mm3 (0.0-0.1); Basophils Percent Auto 0.6 % (0.2-1.2); Eosinophils Absolute Auto 0.2 K/mm3 (0-0.3); Eosinophils Percent Auto 2.1 % (0-4.4); Hematocrit 34.9 % (37.0-47.0); Hemoglobin 11.3 g/dL (12.0-15.0); Immature Granulocyte Absolute 0.03 K/mm3 (0.00-0.031); Immature Granulocyte Percent A 0.4 % (0-0.5); Lymphocytes Absolute Auto 1.09 K/mm3 (0.9-3.2); Mean Corpuscular HGB Conc 32.4 g/dl (32-36); Mean Corpuscular Hemoglobin 34.7 pg (26-34); Mean Corpuscular Volume 107.1 fl (80-100); Mean Platelet Volume 11.3 fl (7.4-10.4); Monocytes Absolute Auto 1.2 K/mm3 (0.1-0.6); Monocytes Percent Auto 15.3 % (2.6-8.5); Neutrophils Absolute Auto 5.2 K/mm3 (1.3-6.7); Neutrophils Percent Auto 67.6 % (45.5-73.1); Platelet Count Result 223 k/mm3 (150-375); Red Blood Count 3.26 M/mm3 (4.2-5.4); White Blood Count 7.8 K/mm3 (4.5-10.0)
[2024-02-02 09:01] VITALS: BP 100/54; PULSE 93; RESP 18; TEMP 37; O2SAT 94
[2024-02-02] MEDS: SENNA/DOCUSATE SODIUM TABLET 2 TAB PO (09:37)
[2024-02-02] MEDS: CHOLECALCIFEROL 1,000 UNITS TABLET 2000 UNITS PO (09:37)
[2024-02-02] MEDS: ASPIRIN 325 MG ENTERIC TABLET PO (09:38)
[2024-02-02] MEDS: CALCIUM/VITAMIN D 500 MG/5 MCG (200 I.U.) TABLET PO (09:38)
[2024-02-02] MEDS: CELECOXIB 200 MG CAPSULE PO (09:38)
[2024-02-02] MEDS: FAMOTIDINE 20 MG TABLET PO (09:38)
[2024-02-02] MEDS: polyethylene glycoL 3350 17 GM POWD.PACK PO (09:38)
[2024-02-02 09:54] LABS: Anisocytosis 1+; Macrocytosis 2+ (NORMAL); Platelet Estimate Adequate (Adequate)
[2024-02-02 09:55] LABS: Hypochromasia 1+; Schistocytes None Seen
--- NOTE | 2024-02-02 12:34 | P.PNAN_ITS ---
Anes - Prog Note Post-Op Date/Time: 02/02/24 12:34 Cardiovascular status: normal Respiratory status: normal Airway patency: baseline Mental status: baseline Post-Op hydration status: normal Vital Signs: Last Vital Signs Temp 37.0 C 02/02/24 09:01 Pulse 93 02/02/24 09:01 Resp 18 02/02/24 09:01 BP 100/54 L 02/02/24 09:01 Pulse Ox 94 02/02/24 09:01 O2 Del Method Room Air 02/01/24 20:00 O2 Flow Rate 2 02/01/24 14:13 FiO2 28 02/01/24 14:13 Pain Score (VAS): 2 I/O: Intake & Output 02/01/24 02/02/24 02/02/24 23:59 07:59 15:59 Intake Total 410 250 236 Balance 410 250 236 Laboratory Tests 02/02/24 07:21 02/02/24 07:21 02/02/24 07:21 WBC 7.8 RBC 3.26 L Hgb 11.3 L Hct 34.9 L MCV 107.1 H MCH 34.7 H MCHC 32.4 RDW 14.0 Plt Count 223 MPV 11.3 H Immature Gran % (Auto) 0.4 Neut % (Auto) 67.6 Lymph % (Auto) 14.0 L [place] % (Auto) 15.3 H Eos % (Auto) 2.1 Baso % (Auto) 0.6 Lymph # (Auto) 1.09 [place] # (Auto) 1.2 H Eos # (Auto) 0.2 Baso # (Auto) 0.1 Abs Immat Gran (auto) 0.03 Absolute Neuts (auto) 5.2 Absolute Nucleated RBC 0.000 Nucleated RBC % 0.0 Platelet Estimate Adequate Hypochromasia 1+ Anisocytosis 1+ Macrocytosis 2+ Schistocytes None seen Sodium 137 Potassium 4.3 Chloride 99 Carbon Dioxide 31 H Anion Gap 7 BUN 24 H Creatinine 0.70 Estim Creat Clear Calc 56 Estimated GFR > 60 Glucose 112 H Calcium 8.5 Post-procedural complaints: none Patient Feedback: Patient satisfied with anesthetic care.
[2024-02-02] MEDS: oxyCODONE/ACETAMINOPHEN (*CRX) 5-325 MG TABLET 1 TABLET PO (12:40)
--- NOTE | 2024-02-02 12:52 | PM.PNORT ---
Progress Note: A&P Assessment and Plan (1) S/P total knee arthroplasty: Qualifiers: Laterality: left Qualified Code(s): Z96.652 - Presence of left artificial knee joint Code(s): Z96.659 - Presence of unspecified artificial knee joint Status: Acute Assessment and Plan: POD #1 : Left TKA Continue PT/OT. WBAT. Walker. HIGH FALL RISK. Continue pain control. Ice Knee. Protect skin. DVT prophylaxis with Aspirin. SCDs. Incentive Spirometry Use reviewed. Monitor Dressing. Change prior to discharge. Bowel Regimen. Dispo: Home with Home Health Plan Reviewed history, exam, radiographs and current labs with attending MD and covering surgeon, Dr. Rogers, who agrees with current plan as indicated above. No further recommendations from Dr. Rogers at this time. Subjective Subjective Date/Time Seen: 02/02/24 12:52 Post Op day: 1 Principal diagnosis: Left Knee DJD Interval history: POD #1: Left TKA Patient doing well. Pain very well controlled. Son at bedside. Ready for d/c today. Review of Systems Review of Systems: All systems reviewed & are unremarkable except as noted in HPI and below Constitutional: Constitutional: Denies fever(s) and Denies headache(s) ENT: Denies headache(s) Cardiovascular: Cardiovascular: Denies chest pain, Denies diaphoresis, Denies palpitations and Denies dyspnea Respiratory: Respiratory: Denies dyspnea Gastrointestinal: Gastrointestinal: Denies abdominal pain, Denies constipation, Denies nausea and Denies vomiting Genitourinary: Genitourinary: Reports nocturia and Denies dysuria Musculoskeletal: Musculoskeletal: Reports arthralgias (Left Knee ), Reports joint swelling (Left Knee ) and Reports limited range of motion (ROM limited due to recent surgical intervention LEFT Knee ) Neurologic: Denies headache(s) Endocrine: Endocrine: Denies palpitations Exam Const: General: comfortable and no acute distress Resp: Effort & Inspection: normal respiratory effort Cardio: Rate: regular rate Rhythm: regular rhythm GI: GI Palp: Yes Soft to palpation, No Tenderness to palpation present (GI) and No Guarding due to palpation present (GI) Skin: General skin exam: wounds noted (see extremity assessment ) Wounds: wounds noted (see extremity assessment ) Neuro: Cognition (Neuro): normal cognition Other: NV intact aside from block. Moves toes. Sensation intact to light touch. +ankle dorsiflexion/plantarflexion. Extrem: Left lower extremity: normal to inspection, normal capillary refill, knee Details: tenderness (diffuse ) Location: of the patella, swelling (moderate consistent to recent surgery ), abnormal ROM (limited due to recent surgery ) Details: pain with active ROM and pain with passive ROM and ecchymosis (as expected with recent surgery. NO hematoma. ), lower leg (Negative Gregorio's Sign ), ankle (+ankle dorsiflexion/plantarflexion ) Details: normal to inspection, no edema and normal ROM; no tenderness and no swelling and foot Details: normal capillary refill, toes with normal ROM, vascular exam Details: dorsalis pedis pulse present and motor-sensory exam light-touch normal; no tenderness Other: Incision left TKA dressing c/d/i. No hematoma. No signs of infection. No wound dehiscence. Psych: Mental Status: mental status grossly normal Objective Data Vital Signs Vital Signs: Vital Signs - 24 hr 02/01/24 13:01 02/01/24 14:05 02/01/24 14:13 Temperature 36.1 C L Pulse Rate 72 Respiratory Rate 20 Blood Pressure 115/49 L Pulse Oximetry 98 97 Oxygen Delivery Room Air Nasal Cannula Oxygen Flow Rate 2 Fraction of Inspired Oxygen 28 02/01/24 17:01 02/01/24 21:01 02/01/24 20:00 Temperature 36.4 C 37.1 C Pulse Rate 76 73 Respiratory Rate 20 18 Blood Pressure 130/61 104/58 L Pulse Oximetry 98 96 Oxygen Delivery Room Air Oxygen Flow Rate Fraction of Inspired Oxygen 02/02/24 01:01 02/02/24 05:01 02/02/24 09
--- NOTE | 2024-02-02 12:56 | PM.DS ---
DS: Admitting Diagnosis Discharge Date 02/02/2024 Admitting Diagnosis Left Knee DJD DS: Discharge Diagnosis Discharge Diagnosis (1) S/P total knee arthroplasty: Qualifiers: Laterality: left Qualified Code(s): Z96.652 - Presence of left artificial knee joint Code(s): Z96.659 - Presence of unspecified artificial knee joint Status: Acute Assessment and Plan: POD #1 : Left TKA Continue PT/OT. WBAT. Walker. HIGH FALL RISK. Continue pain control. Ice Knee. Protect skin. DVT prophylaxis with Aspirin. SCDs. Incentive Spirometry Use reviewed. Monitor Dressing. Change prior to discharge. Bowel Regimen. Dispo: Home with Home Health Plan Reviewed history, exam, radiographs and current labs with attending MD and covering surgeon, Dr. Rogers, who agrees with current plan as indicated above. No further recommendations from Dr. Rogers at this time. DS: Summary Hospital Course Reason for hospitalization: Left TKA Hospital Course: 73 year old female admitted s/p Left for postoperative medical management, pain control and mobilization with PT/OT. Patient progressed well with PT/OT. Pain and vitals remained stable throughout. The patient has been cleared to be discharged home with home health at this time. All discharge care instructions reviewed at depth. New medications reviewed. Follow up planned for 3 weeks in the outpatient orthopedic clinic with Dr. Rogers. Dr. Rogers in agreement with safe discharge at this time. Status at Discharge Functional status at discharge: uses cane/walker Overall status at discharge: patient is progressing back to baseline Time Spent with Patient Time attestation: Total time spent providing and/or coordinating discharge services: Exam Const: General: comfortable and no acute distress Resp: Effort & Inspection: normal respiratory effort Cardio: Rate: regular rate Rhythm: regular rhythm Skin: General skin exam: wounds noted (see extremity assessment ) Wounds: wounds noted (see extremity assessment ) Neuro: Cognition (Neuro): normal cognition Other: NV intact aside from block. Moves toes. Sensation intact to light touch. +ankle dorsiflexion/plantarflexion. Extrem: Left lower extremity: normal to inspection, normal capillary refill, knee Details: tenderness (diffuse ) Location: of the patella, swelling (moderate consistent to recent surgery ), abnormal ROM (limited due to recent surgery ) Details: pain with active ROM and pain with passive ROM and ecchymosis (as expected with recent surgery. NO hematoma. ), lower leg (Negative Gregorio's Sign ), ankle (+ankle dorsiflexion/plantarflexion ) Details: normal to inspection, no edema and normal ROM; no tenderness and no swelling and foot Details: normal capillary refill, toes with normal ROM, vascular exam Details: dorsalis pedis pulse present and motor-sensory exam light-touch normal; no tenderness Other: Incision left TKA dressing c/d/i. No hematoma. No signs of infection. No wound dehiscence. Psych: Mental Status: mental status grossly normal DS: Data Data Completed and Pending Labs on day of discharge: Labs from last 24 hours 02/02/24 07:21 WBC 7.8 RBC 3.26 L Hgb 11.3 L Hct 34.9 L MCV 107.1 H MCH 34.7 H MCHC 32.4 RDW 14.0 Plt Count 223 MPV 11.3 H Immature Gran % (Auto) 0.4 Neut % (Auto) 67.6 Lymph % (Auto) 14.0 L [place] % (Auto) 15.3 H Eos % (Auto) 2.1 Baso % (Auto) 0.6 Lymph # (Auto) 1.09 [place] # (Auto) 1.2 H Eos # (Auto) 0.2 Baso # (Auto) 0.1 Abs Immat Gran (auto) 0.03 Absolute Neuts (auto) 5.2 Absolute Nucleated RBC 0.000 Nucleated RBC % 0.0 Platelet Estimate Adequate Hypochromasia 1+ Anisocytosis 1+ Macrocytosis 2+ Schistocytes None seen Sodium 137 Potassium 4.3 Chloride 99 Carbon Dioxide 31 H Anion Gap 7 BUN 24 H Creatinine 0.70 Estim Creat Clear Calc 56 Estimated GFR > 60 Glucose 112 H Calcium 8.5 Discharge Plan Di
== END 2024-02-02 14:00 | disposition home health service (06) ==
LOC: ANHSURGERY 06:04 → ANH3MEDSUR 11:19
PROVIDERS: PCP Family Medicine; Visit Provider Orthopaedic Surgery
PROC: (CPT 27447; principal; 2024-02-01 07:30)
DX: M17.12 Unilateral primary osteoarthritis, left knee (principal); M25.762 Osteophyte, left knee; I10 Essential (primary) hypertension; E03.9 Hypothyroidism, unspecified; G25.81 Restless legs syndrome; M85.88 Other specified disorders of bone density and structure, other site; G89.18 Other acute postprocedural pain; E66.9 Obesity, unspecified; Z68.34 Body mass index [BMI] 34.0-34.9, adult; Z79.82 Long term (current) use of aspirin; Z98.890 Other specified postprocedural states; Z80.3 Family history of malignant neoplasm of breast; Z80.49 Family history of malignant neoplasm of other genital organs; Z82.49 Family history of ischemic heart disease and other diseases of the circulatory system
CPT/HCPCS: 64447; 27447; 36415; 73560; 80048; 85025; 86850; 86900; 86901; 97110; 97116; 97161; 97165; 97530; 97535; A9270; C1713; C1776; J0171; J0690; J1885; J2250; J2270; J2405; J2704; J2795; J3010; J7120

== ENCOUNTER 2024-03-06 18:20 | Emergency (ER) | payer MEDICARE, SELFPAY ==
--- NOTE | ~2024-03-06 | XR_ITS ---
CHEST RADIOGRAPH, PA AND LATERAL CLINICAL HISTORY: sob/ chest heaviness/ runny nose/cough . COMPARISON: 08/24/2023 TECHNIQUE: PA and lateral views of the chest. FINDINGS The cardiomediastinal silhouette is unremarkable. The lungs are clear. Visualized osseous structures and soft tissues are unremarkable. IMPRESSION: No focal infiltrate or effusion. If clinical suspicion persists, cross-sectional imaging (noncontrast enhanced CT examination of the c hest) is suggested for further evaluation. Reviewed, dictated and finalized at location A. IMPRESSION: No focal infiltrate or effusion. If clinical suspicion persists, cross-sectional imaging (noncontrast enhanced C T examination of the chest) is suggested for further evaluation.
[2024-03-06 18:40] VITALS: BP 129/59; PULSE 69; RESP 16; TEMP 37.2; O2SAT 98
--- NOTE | 2024-03-06 18:59 | ECG_ITS ---
Test Date: 2024-03-06 18:26:25 Measurements Intervals [place] Rate: 74 P: 32 CA: 141 QRS: 37 QRSD: 88 T: 34 QT: 377 QTc: 420 Interpretive Statements SINUS RHYTHM POSSIBLE ANTERIOR MYOCARDIAL INFARCTION [30 ms Q WAVE IN V3/V4, OR R < 0.2 mV IN V4], PROBABLY OLD ABNORMAL ECG Compared to ECG 11/24/2023 11:40:46 No significant changes Electronically Signed On 03-07-2024 10:17:51 CDT by Zaire Mccullough M.D.
--- NOTE | 2024-03-06 19:28 | ED.SOB ---
HPI - SOB/Dyspnea General Chief Complaint: Shortness of Breath/Dyspnea Stated Complaint: Trouble Breathing Time Seen by Provider: 03/06/24 18:43 Source: patient Mode of arrival: ambulatory Limitations: no limitations History of Present Illness HPI Narrative: Giulia is a 74-year-old female patient presenting to the clinic today with complaints of shortness of breath, runny nose, nonproductive cough, and chest heaviness for the past 3 days. Reports notably this evening that her shortness of breath has gotten worse. Denies any radiation of pain. Patient reports no previous cardiac history. Has had an abnormal EKG and was sent to cardiology to be evaluated in December. Was given prescription for nitroglycerin as needed and was told to take a baby aspirin daily by her PCP. A Lexiscan stress test was ordered and was normal in December. She denies any fever or chills. No known exposure to anyone with COVID. Related Data Home Medications Medication Instructions Recorded Confirmed mirabegron 50 mg tablet,extended 50 mg PO DAILY 07/10/19 02/23/24 release 24 hr (Myrbetriq) multivitamin with minerals 1 cap PO DAILY 08/21/20 02/23/24 calcium 600 mg (as carbonate)-vit 1 tablet PO BID 07/20/22 02/23/24 D3 10 mcg (400 unit)-minerals tablet cholecalciferol (vitamin D3) 50 50 mcg PO DAILY 07/20/22 02/23/24 mcg (2,000 unit) capsule loratadine 10 mg tablet (Allergy 10 mg PO PRN PRN Allergy Symptoms 03/22/23 02/23/24 Relief (loratadine)) acetaminophen 650 mg 650 mg PO PRN PRN Pain 07/20/23 02/23/24 tablet,extended release magnesium oxide 800 mg PO DAILY 07/20/23 02/23/24 loperamide 2 mg tablet 2 mg PO Q6H PRN Diarrhea 11/28/23 02/23/24 L.acidophil,salivari-Bifido 1 cap PO DAILY 01/18/24 02/23/24 bifidum-Strep thermoph 175 mg capsule (Acidophilus Probiotic Blend) aspirin 81 mg tablet,delayed 81 mg PO HS 01/18/24 02/23/24 release (Adult Low Dose Aspirin) Allergies Allergy/AdvReac Type Severity Reaction Status Date / Time corn syrup Allergy Mild Hives Verified 02/23/24 13:16 starch Allergy Mild Hives Verified 02/23/24 13:16 adhesive Allergy Unknown Rash Verified 02/23/24 13:16 corn Allergy Unknown Hives Verified 02/23/24 13:16 corn starch AdvReac Intermediate Rash Verified 02/23/24 13:16 hydrogenated oil Allergy Unknown Hives Uncoded 02/23/24 13:16 TAPE AdvReac Intermediate RASH Uncoded 02/23/24 13:16 Review of Systems Review of Systems: Pertinent positives per HPI. Patient denies any fever, chills, rash, headache, visual changes, dizziness, palpitations, nausea, vomiting, diarrhea, constipation, abdominal pain, or any urinary issues. [facility] Past Medical History Medical History Degenerative joint disease of knee Dermatitis Eczema of both hands Edema, lower extremity HTN (hypertension) Hypothyroidism Left knee DJD Leg pain, bilateral Osteoarthritis Osteopenia Other fatigue Restless leg syndrome Right knee DJD Seasonal allergies Vitamin D deficiency Surgical History Surgical History H/O breast biopsy H/O removal of cyst 2013 History of thymectomy 1969 S/P total knee arthroplasty LT TKA 02/01/24 Family History Family History Other Diabetes mellitus Family history of cardiovascular disease Family history of coronary artery disease Family history of malignant neoplasm of breast in first degree relative Family history of malignant neoplasm of uterus Social History Social History Smoking status: Never smoker Second hand tobacco smoke exposure: No Additional smoking assessment comments: DENIES ANY FORM OF TOBACCO USE Alcohol intake: never Substance use: never Substance use type: does not use Do You Feel Safe in your Home?: Yes Lack of Transportati
[2024-03-06 19:31] LABS: EDCOVIDSCREEN Negative (Negative)
== END 2024-03-06 19:50 | disposition short-term general hospital (02) ==
PROVIDERS: Emergency Provider Nurse Practitioner Family; PCP Family Medicine
DX: R06.02 Shortness of breath (principal); R05.1 Acute cough; R07.89 Other chest pain; Z20.822 Contact with and (suspected) exposure to COVID-19; I10 Essential (primary) hypertension; E03.9 Hypothyroidism, unspecified; M17.0 Bilateral primary osteoarthritis of knee; M19.90 Unspecified osteoarthritis, unspecified site; M85.80 Other specified disorders of bone density and structure, unspecified site; G25.81 Restless legs syndrome; E55.9 Vitamin D deficiency, unspecified; Z96.652 Presence of left artificial knee joint; Z79.82 Long term (current) use of aspirin
CPT/HCPCS: 71046; 87426; 93005; 99213; G0463

== ENCOUNTER 2024-03-06 20:06 | Emergency (ER) | payer MEDICARE, SELFPAY ==
--- NOTE | ~2024-03-06 | XR_ITS ---
EXAMINATION: XR chest 2V DATE: 03/06/2024 21:25 INDICATION: Central chest pain TECHNIQUE: frontal and lateral views of the chest were obtained. COMPARISON: Chest radiograph dated 03/06/2024 FINDINGS: The lungs remain clear with no focal airspace opacities, pulmonary edema, pleural effusion or pneumot horax. The cardiomediastinal silhouette is within normal limits for AP technique. Thoracic kyphosis w ith moderate spondylosis. IMPRESSION: 1. No acute cardiopulmonary disease. Reviewed, dictated and finalized at location A.
--- NOTE | 2024-03-06 20:09 | ECG_ITS ---
Test Date: 2024-03-06 20:19:44 Measurements Intervals [place] Rate: 68 P: -11 IN: 137 QRS: -26 QRSD: 85 T: 2 QT: 376 QTc: 401 Interpretive Statements SINUS RHYTHM LOW QRS VOLTAGE IN PRECORDIAL LEADS [QRS DEFLECTION < 1.0 mV IN CHEST LEADS] POSSIBLE ANTERIOR MYOCARDIAL INFARCTION , PROBABLY OLD [30 ms Q WAVE IN V3/V4, OR R < 0.2 mV IN V4] NONSPECIFIC T-WAVE ABNORMALITY ABNORMAL ECG Compared to ECG 03/06/2024 18:26:25 Low QRS voltage now present Myocardial infarct finding still present Electronically Signed On 03-07-2024 10:18:49 CDT by Zaire Mccullough M.D.
[2024-03-06 20:13] VITALS: BP 128/61; PULSE 72; RESP 16; TEMP 36.7; O2SAT 98
[2024-03-06 20:37] VITALS: O2SAT 97
--- NOTE | 2024-03-06 20:37 | ED.SOB ---
HPI - SOB/Dyspnea General Chief Complaint: Shortness of Breath/Dyspnea Stated Complaint: chest pain, SOB Time Seen by Provider: 03/06/24 20:34 History of Present Illness HPI Narrative: Pt presents with SOB for quite awhile but she says she just got tired of it tonight. Pt denies cough or fever or CP. Pt denies having copd but says her smoked around her for 4 years event though she never smoked herself. Related Data Home Medications Medication Instructions Recorded Confirmed mirabegron 50 mg tablet,extended 50 mg PO DAILY 07/10/19 02/23/24 release 24 hr (Myrbetriq) multivitamin with minerals 1 cap PO DAILY 08/21/20 02/23/24 calcium 600 mg (as carbonate)-vit 1 tablet PO BID 07/20/22 02/23/24 D3 10 mcg (400 unit)-minerals tablet cholecalciferol (vitamin D3) 50 50 mcg PO DAILY 07/20/22 02/23/24 mcg (2,000 unit) capsule loratadine 10 mg tablet (Allergy 10 mg PO PRN PRN Allergy Symptoms 03/22/23 02/23/24 Relief (loratadine)) acetaminophen 650 mg 650 mg PO PRN PRN Pain 07/20/23 02/23/24 tablet,extended release magnesium oxide 800 mg PO DAILY 07/20/23 02/23/24 loperamide 2 mg tablet 2 mg PO Q6H PRN Diarrhea 11/28/23 02/23/24 L.acidophil,salivari-Bifido 1 cap PO DAILY 01/18/24 02/23/24 bifidum-Strep thermoph 175 mg capsule (Acidophilus Probiotic Blend) aspirin 81 mg tablet,delayed 81 mg PO HS 01/18/24 02/23/24 release (Adult Low Dose Aspirin) Allergies Allergy/AdvReac Type Severity Reaction Status Date / Time corn syrup Allergy Mild Hives Verified 02/23/24 13:16 starch Allergy Mild Hives Verified 02/23/24 13:16 adhesive Allergy Unknown Rash Verified 02/23/24 13:16 corn Allergy Unknown Hives Verified 02/23/24 13:16 corn starch AdvReac Intermediate Rash Verified 02/23/24 13:16 hydrogenated oil Allergy Unknown Hives Uncoded 02/23/24 13:16 TAPE AdvReac Intermediate RASH Uncoded 02/23/24 13:16 Review of Systems Review of Systems: All systems reviewed & are unremarkable except as noted in HPI and below PMFSH Past Medical History Medical History Degenerative joint disease of knee Dermatitis Eczema of both hands Edema, lower extremity HTN (hypertension) Hypothyroidism Left knee DJD Leg pain, bilateral Osteoarthritis Osteopenia Other fatigue Restless leg syndrome Right knee DJD Seasonal allergies Vitamin D deficiency Surgical History Surgical History H/O breast biopsy H/O removal of cyst 2013 History of thymectomy 1969 S/P total knee arthroplasty LT TKA 02/01/24 Family History Family History Other Diabetes mellitus Family history of cardiovascular disease Family history of coronary artery disease Family history of malignant neoplasm of breast in first degree relative Family history of malignant neoplasm of uterus Social History Social History Smoking status: Never smoker Second hand tobacco smoke exposure: No Additional smoking assessment comments: DENIES ANY FORM OF TOBACCO USE Alcohol intake: never Substance use: never Substance use type: does not use Do You Feel Safe in your Home?: Yes Lack of Transportation: No Lack of Food: Never True Current Housing: I Have Housing Concerned About Future Housing: No Difficulty Paying Gas/Electric Bills: No Difficulty Paying for Meds: No Currently Unemployed: No Education: Bachelor's Degree Difficulty w/ Childcare or Family Care: No Living arrangements: with family Additional living arrangements comments: Son Occupation/Education: retired Gender identity (if verbalized by the patient): Female Spiritual care concerns: No Exam Const: General: healthy appearing and no acute distress Nutritional Appearance: well nourished Orientation/consciousness: p
[2024-03-06 20:42] LABS: Basophils Absolute Auto 0.1 K/mm3 (0.0-0.1); Basophils Percent Auto 0.8 % (0.2-1.2); Eosinophils Absolute Auto 0.3 K/mm3 (0-0.3); Eosinophils Percent Auto 5.1 % (0-4.4); Hematocrit 41.1 % (37.0-47.0); Hemoglobin 13.4 g/dL (12.0-15.0); Immature Granulocyte Absolute 0.02 K/mm3 (0.00-0.031); Immature Granulocyte Percent A 0.3 % (0-0.5); Lymphocytes Absolute Auto 1.77 K/mm3 (0.9-3.2); Lymphocytes Percent Auto 26.7 % (18.3-44.2); Mean Corpuscular HGB Conc 32.6 g/dl (32-36); Mean Corpuscular Volume 107.3 fl (80-100); Mean Platelet Volume 11.1 fl (7.4-10.4); Monocytes Absolute Auto 0.6 K/mm3 (0.1-0.6); Monocytes Percent Auto 8.9 % (2.6-8.5); Neutrophils Absolute Auto 3.9 K/mm3 (1.3-6.7); Neutrophils Percent Auto 58.2 % (45.5-73.1); Platelet Count Result 282 k/mm3 (150-375); Red Blood Count 3.83 M/mm3 (4.2-5.4); Red Cell Distribution Width 15.5 % (11.5-14.5); White Blood Count 6.6 K/mm3 (4.5-10.0)
[2024-03-06] MEDS: IPRATROPIUM 0.5 MG/ALBUTEROL SULFATE 2.5 MG AMPUL.NEB 3 ML INHALATION (20:49)
[2024-03-06 20:50] VITALS: PULSE 69; RESP 19
--- NOTE | 2024-03-06 20:51 | PC.NURSE ---
EDP Dr. Galindo zheng no admin for ASA ordered on pt.
[2024-03-06 20:56] LABS: Alanine Aminotransferase 20 U/L (6-35); Albumin Level 4.6 g/dL (3.5-5.1); Alkaline Phosphatase 140 U/L (38-126); Anion Gap 10 mmol/L (4-12); Aspartate Amino Transferase 29 U/L (14-36); Bilirubin,Total 0.7 mg/dL (0.2-1.3); Blood Urea Nitrogen 28 mg/dL (7-17); Calcium 9.7 mg/dL (8.4-10.2); Carbon Dioxide 29 mmol/L (22-30); Chloride 102 mmol/L (98-107); Estimated Glomerular Filt Rate > 60; Glucose 99 mg/dL (65-110); Lipase 93 U/L (23-300); Partial Thromboplastin Time 33.5 Seconds (22.3-36.8); Potassium 3.8 mmol/L (3.4-5.0); Sodium 141 mmol/L (137-145)
[2024-03-06 20:59] VITALS: PULSE 68; RESP 25
[2024-03-06 21:06] LABS: Prothrombin Time 13.9 Seconds (11.1-14.7)
[2024-03-06 21:07] LABS: Troponin I < 0.012 ng/mL (0.000-0.034)
[2024-03-06 21:16] LABS: Platelet Estimate Adequate (Adequate)
[2024-03-06 21:17] LABS: Hypochromasia 1+; Ovalocytes 1+; Schistocytes None Seen
[2024-03-06 22:04] VITALS: BP 142/56; PULSE 68; RESP 17; O2SAT 97
== END 2024-03-06 22:06 | disposition home or self-care (01) ==
PROVIDERS: Emergency Medicine; Emergency Provider Emergency Medicine; PCP Family Medicine
DX: R06.02 Shortness of breath (principal); I10 Essential (primary) hypertension; E03.9 Hypothyroidism, unspecified; E55.9 Vitamin D deficiency, unspecified; M85.80 Other specified disorders of bone density and structure, unspecified site; M17.0 Bilateral primary osteoarthritis of knee; G25.81 Restless legs syndrome; Z96.652 Presence of left artificial knee joint; Z79.899 Other long term (current) drug therapy; Z79.82 Long term (current) use of aspirin; R94.31 Abnormal electrocardiogram [ECG] [EKG]
CPT/HCPCS: 36415; 71046; 80053; 83690; 84484; 85025; 85610; 85730; 87426; 93005; 94640; 99284

== ENCOUNTER 2024-04-02 08:55 | Outpatient (CLI) | payer MEDICARE, SELFPAY ==
--- NOTE | ~2024-04-02 | MM_ITS ---
EXAMINATION: MM screening diego BI w vikash HISTORY: Screening mammogram, family history of breast cancer in her mother. TECHNIQUE: Craniocaudal and mediolateral oblique 3-D tomosynthesis images were obtained and synthetic 2-D images were generated. CAD analysis was submitted and interpreted. COMPARISON: 09/14/2023, 03/30/2023, 10/18/2022, 04/05/2022, 04/03/2021 BREAST PARENCHYMAL COMPOSITION:Not Dense. There are scattered areas of fibroglandular density. FINDINGS: No suspicious mass, calcification, or architectural distortion are identified in either spring ast to suggest malignancy. There has been no suspicious interval change. IMPRESSION: No mammographic evidence of malignancy. Recommend routine screening mammography in one year. BI-RADS Category 1: Negative Reviewed, dictated and finalized at [facility]. [employer]
== END 2024-04-02 08:56 | disposition home or self-care (01) ==
PROVIDERS: PCP Family Medicine; Visit Provider Physician Assistant Surgical
DX: Z12.31 Encounter for screening mammogram for malignant neoplasm of breast (principal)
CPT/HCPCS: 77063; 77067

== ENCOUNTER 2024-08-22 22:08 | Emergency (ER) | payer MEDICARE, SELFPAY ==
--- OUTSIDE RECORDS SUMMARY | 2024-08-22 22:10 | XMS_ITS | Data Portability ---
Author Organization [place] - [place] [employer] [facility], Main Office Address [address] [place] [address] Care Team Providers Care Telephone Messenger Name Role Phone LEROY PONCE Primary Care Provider LEROY PONCE Referring Provider [phone] Assessment Encounter Date Assessment Date Assessment LastModified by Organization Details LastModified Time 04/28/2023 04/28/2023 This note is dictated and transcribed by [employer]. Wire Drawing Machine Tender variances may occur. Despite proofreading, typographical errors may occur. Occasional wrong-word or 'lghhk-d-pmfy' substitutions may have occurred due to the inherent limitations of voice recording. Read the chart carefully and recognize, using context, where substitutions have occurred. Not available 04/28/2023 14:38:11 07/28/2023 07/28/2023 This note is dictated and transcribed by [employer]. [employer] T[employer] variances may occur. Despite proofreading, typographical errors may occur. Occasional wrong-word or 'oarhp-o-zvyd' substitutions may have occurred due to the inherent limitations of voice recording. Read the chart carefully and recognize, using context, where substitutions have occurred. Not available 07/28/2023 14:29:55 10/27/2023 10/27/2023 This note is dictated and transcribed by [employer]. [employer] Tender variances may occur. Despite proofreading, typographical errors may occur. Occasional wrong-word or 'nnnmw-k-tyxh' substitutions may have occurred due to the inherent limitations of voice recording. Read the chart carefully and recognize, using context, where substitutions have occurred. Not available 10/27/2023 15:22:43 01/26/2024 01/26/2024 This note is dictated and transcribed by [employer]. [employer] T[employer] variances may occur. Despite proofreading, typographical errors may occur. Occasional wrong-word or 'oybyj-s-fxbf' substitutions may have occurred due to the inherent limitations of voice recording. Read the chart carefully and recognize, using context, where substitutions have occurred. Not available 01/30/2024 09:22:43 06/07/2024 06/07/2024 This note is dictated and transcribed by [employer]. [employer] Tender variances may occur. Despite proofreading, typographical errors may occur. Occasional wrong-word or 'gizuo-c-geci' substitutions may have occurred due to the inherent limitations of voice recording. Read the chart carefully and recognize, using context, where substitutions have occurred. [email or web address] Not available 06/07/2024 15:39:57 Plan of Treatment Reminders Order Date Submit Date Provider Last Modified By Organization Details Last Modified Time Details Appointments None recorded. Lab None recorded. Referral None recorded. Procedures None recorded. Surgeries None recorded. Imaging XR, foot, 3 or more view 2024 025 [email or web address] [facility] Radha Cabral, [address], [place], [address], 15:45:20 Medication Orders diclofenac sodium 75 mg tablet,kinga yed release 2024 025 [facility], [facility], [address] [place] [address], [phone], 18:33:02 Patient TargetsNo targets recorded. Patient InstructionsNo instructions recorded. Reason for Referral None Reported. Results Created Date Observation Date Name Description Value Unit Range Abnormal Flag Note LastModifiedBy Organization Detail LastModifiedTime 06/07/19 25 XR, foot, 3 or more view No observ ation record ed. [email or web address] [facility] [place] [address], [place], [address], 06/07/2024 15:45:19 Result Notes None recorded. Problems Name Problem SNOMED Code Status Onset Date Resolution Date Notes Provider Name and Address Organization Details Recorded Time Callosity on toe 614858018 Active 2020 Not Available [facility] 3 23:30:03 Contractur e of joint of toe 158995218 Active 2020 Not Available [facility] 3 23:30:03 Pain in toe 903176527 Active 2020 Not Available [facility] 3 23:30:03 Depressive disorder 82228581 Active 2020 Not Available [facility] 3 23:30:03 Arthritis 2952745 Active 2020 Not Available [facility] 3 23:30:03 Contact dermatitis 57662041 Active 2020 Not Available [facility] 3 23:30:03 Anxiety 24045941 Active 2020 Not Available [facility] 3 23:30:03 Dystrophia unguium 32185561 Active 2022 Reji Rojas DPM [address], [place], [address] , [employer] 3 14:21:49 Pain in toe 850767661 Active 2022 Reji Rjoas DPM [address], [place], [address] , [employer] 3 14:22:03 Unable to cut own toenails 428282479 Active 2022 Reji Rojas DPM [address], [place], [address] , [employer] 3 14:22:16 Acquired claw toes 76357855 Active 2022 Reji Rojas DPM [address], [place], [address] , [employer] 3 15:22:43 Tendinitis of right posterior tibial tendon 5691021034915 02 Active 2022 Reji Rojas DPM [address], [address], [place], [address] , [employer] 3 11:10:50 Congenital pes planus 95487438 Active 2022 Reji Rojas DPM [address], [place], [address] , [employer] 3 11:12:11 Localized, primary osteoarthr itis of the ankle and/or foot 113491314 Active 2024 Reji Rojas DPM [address], [place], [address] , [employer] 5 15:36:09 Acquired pes planus of left foot 6046046010577 08 Active [address], [place], [address] , [employer] 5 15:40:03 Acquired pes planus of right foot 0926487440821 06 Active 2024 Reji Rojas DPM [address], [place], [address] , [employer] 5 15:40:27 Bone spur of right foot 6754285345138 03 Active 2024 Reji Rojas DPM [address], [place], [address] , [employer] 5 15:40:55 Notes:ALLERGIES, BACK/NECK P ROBLEMS, URINARY/BLADDER/KIDNEY PROBLEMS Problem Notes None recorded. Procedures Surgical History Date Name Laterality Status Provider Name and Address Organization Details Recorded Time 01/26/20 24 Nail Debridement completed SHERI [address], [place], [address], [employer] 01/30/2024 09:22:30 10/27/19 24 Nail Debridement completed SHERI [address], [place], [address], [employer] 10/27/2023 15:22:27 07/28/19 24 Nail Debridement completed Reji Rojas DPM [address], [place], [address], [facility] [employer] [facility] [employer] [facility] 07/28/2023 14:36:09 04/14/20 23 Blank Procedure Note completed Reji Rojas DPM [address], [place], [address], [employer] [facility] [employer] [facility] 04/14/2023 11:08:19 04/11/20 23 Callus Debridement, One completed Reji Rojas DPM [address], [place], [address], [employer] [facility] [employer] [facility] 04/11/2023 15:03:32 03/14/20 23 Blank Procedure Note completed Reji Rojas DPM [address], [place], [address], [employer] [facility] [employer] [facility] 03/14/2023 15:22:21 02/01/20 23 Nail Debridement completed Reji Rojas DPM [address], [place], [address], [employer] [facility] [employer] 01/31/2023 14:21:45 05/16/18 70 hymenectomy completed Not Available [facility] 07/15/19 23:29:19 Imaging Results Imaging Date Name Status LastModified by Organiz ation Details LastModified Time 06/07/2024 XR, foot, 3 or more view completed [email or web address] [facility] [place] [address] [facility], [place], [address], 06/07/2024 15:45:19 Procedure Notes None recorded. Medical Equipment None Reported. Allergies Allergen ID Allergen Name Allergen Category Reaction Reaction Severity Criticality Documentation Date Start Date Code Code System Note Provider Name and Address Organization Details Recorded Time 06080 latex environme nt,medica tion Not available Not available Not available 07/14/2022 19551 91 RxNorm Not Available [facility] 23:31:20 33328 corn syrup food Not available Not available Not available 07/14/2022 75113 76 RxNorm Not Available [facility] 3 23:31:20 76956 corn extract food,medi cation Not available Not available Not available 07/14/2022 30438 08 RxNorm Not Available [facility] 3 23:31:20 Medications Name Sig Start Date Stop Date Status Note LastModified by Organization Details LastModified Time amoxicillin 500 mg capsule TAKE ONE CAPSULE BY MOUTH three times daily UNTIL GONE 06/07 completed Not Available Not Available Not Available levothyroxi ne 137 mcg tablet TAKE 1 TABLET BY MOUTH ONCE EVERY MORNING ON AN EMPTY STOMACH FOR THYROID active Not Available Not Available No t Available ropinirole 1 mg tablet TAKE ONE Tablet BY MOUTH TWICE DAILY (IN THE MORNING AND IN THE EVENING) active Not Available Not Available No t Available ketoconazol e 2 % shampoo apply TO SCALP DIRECTED EVERY DAY active Not Available Not Available No t Available azithromyci n 250 mg tablet TAKE 2 TABLETS BY MOUTH ON DAY 1, THEN TAKE 1 TABLET DAILY ON DAYS 2-5 06/07 completed Not Available Not Available Not Available fluconazole 150 mg tablet TAKE ONE TABLET BY MOUTH EVERY 72 HOURS 06/07 completed Not Available Not Available Not Available valacyclovi r 1 gram tablet TAKE ONE Tablet BY MOUTH THREE TIMES DAILY FOR 10 DAYS active Not Available Not Available No t Available hydrocodone 5 mg-acetamin ophen 325 mg tablet TAKE 1 TABLET BY MOUTH EVERY 4 TO 6 HOURS NEEDED FOR PAIN 06/07 completed Not Available Not Available Not Available meloxicam 15 mg tablet TAKE ONE TABLET BY MOUTH ONCE EVERY DAY 06/07 completed Not Available Not Available Not Available prednisone 20 mg tablet TAKE THREE TABLETS BY MOUTH EVERY DAY FOR 10 DAYS 06/07 completed Not Available Not Available Not Available metronidazo le 500 mg tablet TAKE ONE TABLET BY MOUTH TWICE DAILY (IN THE MORNING AND IN THE EVENING) UNTIL GONE active Not Available Not Available No t Available triamcinolo ne acetonide 0.1 % topical cream APPLY TO THE AFFECTED AREA DAILY active Not Available Not Available No t Available levothyroxi ne 100 mcg tablet TAKE 1 TABLET BY MOUTH DAILY 12/29 completed Not Available Not Available Not Available oxycodone-a cetaminophe n 5 mg-325 mg tablet TAKE ONE TABLET BY MOUTH EVERY 6 HOURS NEEDED FOR PAIN active Not Available Not Available No t Available amoxicillin 875 mg tablet 06/07 completed Not Available Not Available Not Available ropinirole 2 mg tablet TAKE ONE Tablet BY MOUTH TWICE DAILY (IN THE MORNING AND IN THE EVENING) active Not Available Not Available No t Available tacrolimus 0.1 % topical ointment apply TO armpits TWICE DAILY FOR TWO TO THREE MONTHS active Not Available Not Available No t Available triamcinolo ne acetonide 0.1 % topical ointment APPLY TO RASH ON LEGS TWICE DAILY 12/29 completed Not Available Not Available Not Available clotrimazol e-betametha sone 1 %-0.05 % topical cream APPLY TOPICALLY TO THE AFFECTED AREA(S) TWICE DAILY (IN THE MORNING AND EVENING) FOR FOUR WEEKS active Not Available Not Available No t Available prednisone 50 mg tablet TAKE ONE Tablet BY MOUTH ONCE DAILY FOR FIVE DAYS 06/07 completed Not Available Not Available Not Available nitroglycer in 0.4 mg sublingual tablet DISSOLVE 1 TABLET UNDER THE TONGUE EVERY 5 MINUTES NEEDED FOR CHEST PAIN. DO NOT EXCEED A TOTAL OF 3 DOSES IN 15 MINUTES. active Not Available Not Available No t Available diclofenac sodium 75 mg tablet,kinga yed release TAKE ONE TABLET BY MOUTH TWICE DAILY (IN THE MORNING AND EVENING) WITH MEALS FOR FOOT PAIN active Not Available Not Available No t Available hydrocortis one 2.5 % topical cream APPLY EXTERNALL Y TO THE AFFECTED AREA TWICE DAILY active Not Available Not Available No t Available gabapentin 100 mg capsule TAKE ONE Capsule BY MOUTH ONCE EVERY NIGHT AT BEDTIME active Not Available Not Available No t Available nystatin 100,000 unit/gram topical powder APPLY TO SKIN FOLDS THREE TIMES DAILY EVERY MORNING & MID DAY AND EVERY DAY AT BEDTIME DIRECTED active Not Available Not Available No t Available diazepam 10 mg tablet 06/07 completed Not Available Not Available Not Available albuterol sulfate HFA 90 mcg/actuati on aerosol inhaler INHALE 2 PUFFS BY MOUTH FOUR TIMES DAILY NEEDED FOR SHORTNESS OF BREATH OR WHEEZING active Not Available Not Available No t Available hydrocortis one 2.5 % topical ointment APPLY TOPICALLY TO THE AFFECTED AREA(S) of eyelid(s) TWICE DAILY active Not Available Not Available No t Available ketoconazol e 2 % topical cream APPLY TO SPOTS TWICE DAILY active Not Available Not Available No t Available ondansetron 4 mg disintegrat ing tablet TAKE ONE TABLET BY MOUTH EVERY 6 HOURS NEEDED FOR NAUSEA & FOR VOMITING active Not Available Not Available No t Available clotrimazol e 1 % topical cream active Not Available Not Available Not Available levothyroxi ne 112 mcg tablet TAKE ONE TABLET BY MOUTH ON AN EMPTY STOMACH FOR THE THYROID active Not Available Not Available No t Available clindamycin 1 % lotion apply TO armpits TWICE DAILY active Not Available Not Available No t Available clobetasol 0.05 % lotion APPLY A THIN LAYER TO THE AFFECTED AREA(S) BY TOPICAL ROUTE 2 TIMES PER DAY 06/07 completed Not Available Not Available Not Available magnesium 2021 active Not Available Not Available Not Avai lable loratadine 2021 active Not Available Not Available Not Avai lable nystatin 2021 active Not Available Not Available Not Avai lable Fish Oil active Not Available Not Avai lable Not Available naproxen 06/07 completed Not Available Not Available Not Available tacrolimus 2021 active Not Available Not Available Not Avai lable Banophen active Not Available Not Avai lable Not Available Vaseline 2021 active Not Available Not Available Not Avai lable Vitamin D3 2021 active Not Available Not Available Not Avai lable Vanicream 2021 active Not Available Not Available Not Avai lable multivitami n 2021 active Not Available Not Available Not Avai lable CeraVe 2020 active Not Available Not Available Not Avai lable diclofenac 1 % topical gel 06/07 completed Not Available Not Available Not Available Zinc (with A and C) Lozenges 2021 active Not Available Not Available Not Avai lable Probiotic 2021 active Not Available Not Available Not Avai lable Myrbetriq 50 mg tablet,exte nded release TAKE 1 TABLET BY MOUTH ONCE EVERY NIGHT AT BEDTIME active Not Available Not Available No t Available Compact Space Chamber USE WITH INHALER FOR BETTER RESULTS active Not Available Not Available No t Available Paxlovid 300 mg (150 mg x 2)-100 mg tablets in a dose pack 06/07 completed Not Available Not Available Not Available Vitals Date Recorded Body height Heart rate Respiratory rate Oxygen saturation Oxygen saturation in Arterial blood by Pulse oximetry Systolic blood pressure Diastolic blood pressure Provider Name and Address Organization Details Last Updated DateTime 3 160.02 cm 74 /min 14 /min 98 % 98 % 100 mm[Hg] 61.99 mm[Hg] Krysten Lozano [employer] 3 14:14:52 Date Recorded Body height Heart rate Respiratory rate Oxygen saturation Oxygen saturation in Arterial blood by Pulse oximetry Systolic blood pressure Diastolic blood pressure Provider Name and Address Organization Details Last Updated DateTime 4 160.02 cm 71 /min 14 /min 98 % 98 % 117 mm[Hg] 73.99 mm[Hg] Krysten Lozano [employer] [facility] [employer] 4 14:19:00 Date Recorded Body height Body mass index (BMI) Body weight Heart rate Respiratory rate Body temperature Oxygen saturation Oxygen saturation in Arterial blood by Pulse oximetry Systolic blood pressure Diastolic blood pressure Provider Name and Address Organization Details Last Updated DateTime 4 160.02 cm 31.9 kg/m2 46337.6 3 g 72 /min 16 /min 97.5 [degF] 97.5 % 97.5 % 130 mm[Hg] 80 mm[Hg] Karin Horta [employer] 4 14:39:45 Date Recorded Body height Body mass index (BMI) Body weight Heart rate Respiratory rate Body temperature Systolic blood pressure Diastolic blood pressure Provider Name and Address Organization Details Last Updated DateTime 4 160.02 cm 31.9 kg/m2 03398.6 3 g 64 /min 14 /min 98.6 [degF] 132 mm[Hg] 82 mm[Hg] Nathalia Nelson MA [employer] 4 15:06:20 Date Recorded Body height Body mass index (BMI) Body weight Heart rate Respiratory rate Oxygen saturation Oxygen saturation in Arterial blood by Pulse oximetry Provider Name and Address Organization Details Last Updated DateTime 5 160.02 cm 31.9 kg/m2 96547.6 3 g 87 /min 14 /min 97 % 97 % Krysten Lozano [employer] 5 15:30:31 Social History Question Answer Notes LastModified by Organizat ion Details LastModified Time Tobacco Smoking Status Never Smoker Not Available [facility] 07/14/2022 23:28:50 What Is Your Level Of Alcohol Consumption? None [id number] Information not available 07/14/2022 Sex: Unknown Functional Status None recorded. Mental Status None recorded. Family History Relationship Description Onset Age of this Age Resolved Age Notes LastModified by Organization Details LastModified Time Father Diabetes mellitus [id number] Not available 07/14/2022 23:29:20 Sister Arthritis [id number] Not available 07/14/2022 23:29:20 Sister Hypertensive disorder [id number] Not available 07/14/2022 23:29:20 Mother Arthritis [id number] Not available 07/14/2022 23:29:20 Paternal Grandmother Heart disease [id number] Not available 07/14/2022 23:29:20 Notes:CANCER-MOTHER/BREAST/U TERINE STROKE-PATERNAL GRANDFATHER Medical History Condition Response ARTHRITIS Y DEPRESSION (INCLUDING POST ) Y BACK / NECK PROBLEMS Y Gynecological HistoryNo gynecological history recorded. Obstetrics History GPAL:G 0 P 0 0 0 0 Past Encounters Encounter ID Performer Location Encounter Start Date Encounter Closed Date Diagnosis/Indication Diagnosis SNOMED-CT Code Diagnosis ICD10 Code Diagnosis Note [id number] _[facility]od[facility]_ DEFAULT_1 _1 , 12/29/2020 00:00:00 12/29/2020 17:05:28 [id number] _[facility]_ DEFAULT_1 _1 , 01/26/2021 00:00:00 01/27/2021 13:52:38 [id number] [facility] [place] [address] [facility] [place] [address] 01/29/2021 00:00:00 02/03/2021 09:30:52 [id number] _[facility]_ DEFAULT_1 _1 , 03/02/2021 00:00:00 03/11/2021 09:23:45 [id number] _[facility]_ DEFAULT_1 _1 , 03/29/2022 00:00:00 03/29/2022 15:24:35 [id number] Reji Rojas DPM [facility] [place] [address] [place] [address] 01/31/2023 14:06:25 01/31/2023 14:57:31 Dystrophia unguium 01959985 L60.3 Nails 1 through 10 were debrided with sharp mechanical debridemen t without incident. Nails were debrided and greater than 50% length and thickness where needed. Pain in toe 789618970 M7 9.674 M79.675 secondary to above Unable to cut own toenails 340078063 Z74.1 [id number] Reji Rojas DPM [facility] [place] [address] [place] [address] 03/14/2023 14:09:57 03/14/2023 17:03:51 Pain in toe 390482201 M79.674 M79.675 secondary to above Acquired claw toes 32744 000 M20.5X9 right footrepeat flexor tenotomy right 3rd toe--- Wound care instructio ns reviewedsi gns and symptoms of infection reviewed present seek medical attention immediatel yRecommend offloading continue supportive shoe gearfollow -up 2-3 weeks [id number] Reji Rojas DPM [facility] [place] [address] [place] [address] 04/11/2023 14:10:46 04/12/2023 12:28:11 Pain in toe 523277124 M79.674 M79.675 resolved right 3rd toe Acquired claw toes 12482 000 M20.5X9 right footrepeat flexor tenotomy right 3rd toe-- Healed with rectus position procedure scheduled for for flexor tenotomy of 2nd 4th toes, right Callosity on toe 20090823 01 L84 right 3rd toe distal, debrided without incident [id number] Reji Rojas DPM [facility] [place] [address] [facility] [place] [address] 04/14/2023 10:11:26 04/14/2023 14:01:21 Acquired claw toes 41845490 M20.5X9 right footrepeat flexor tenotomy right 3rd toe-- Healed with rectus positionpr ocedure flexor tenotomy right 2nd and 4th performed todaywound care instructio ns givenmonit or for signs of infection at present seek medical attention immediatel yFollow-up in April 28 Pain in toe 844412620 M7 9.674 M79.675 resolved right 2nd and 4th toes Tendinitis of right posterior tibial tendon 0467253690 61765 M76.821 discussed optionsric e therapyrec ommend continuing supportive shoe gearobtain [employer] [place] low arch orthotics Congenital pes planus 23 678796 Q66.51 as above [id number] Reji Rojas DPM [facility] Pod[facility] [place] [address] [place] [address] 04/28/2023 14:07:40 04/28/2023 14:44:57 Acquired claw toes 83975229 M20.5X9 right footrepeat flexor tenotomy right 2nd, 3rd, 4th toes-- Healed with rectus positionfo llow-up as needed Pain in toe 846685222 M7 9.674 M79.675 resolved right 2nd and 4th toes Tendinitis of right posterior tibial tendon 6061921697 71488 M76.821 pain resolved with orthoticsc ontinue supportive shoe gear Congenital pes planus 23 980823 Q66.51 as above [id number] Reji Rojas DPM [facility] Pod[facility] [place] [address] [place] [address] 07/28/2023 14:13:26 07/28/2023 14:53:00 Dystrophia unguium 33508990 L60.3 Nails 1 through 10 were debrided with sharp mechanical debridemen t without incident. Nails were debrided and greater than 50% length and thickness where needed. Pain in toe 250002050 M7 9.674 M79.675 secondary to nails [id number] Reji Rojas DPM [facility] Pod[facility] [place] [address] [place] [address] 10/27/2023 14:21:43 11/04/2023 08:03:14 Pain in toe 516405767 M79.674 M79.675 secondary to nails Dystrophia unguium 92892 009 L60.3 Nails 1 through 10 were debrided with sharp mechanical debridemen t without incident. Nails were debrided and greater than 50% length and thickness where needed. Unable to cut own toenails 973387868 Z74.1 [id number] Reji Rojas DPM [facility] Pod[facility] [place] [address] [place] [address] 01/26/2024 14:43:12 01/30/2024 10:27:01 Pain in toe 373034587 M79.674 M79.675 secondary to nails Dystrophia unguium 42550 009 L60.3 Nails 1 through 10 were debrided with sharp mechanical debridemen t without incident. Nails were debrided and greater than 50% length and thickness where needed. [id number] Reji Rojas DPM [facility] Pod[facility] [place] [address] [place] [address] 06/07/2024 15:13:17 06/08/2024 13:42:41 Localized, primary osteoarthritis of the ankle and/or foot 515264926 M19.079 x-rays reviewedRx diclofenac follow-up 4 weeks Acquired p es planus of right foot 1586984364 64280 M21.41 recommend [employer] orthotics and supportive shoe gear dailyrice therapyx-r ays reviewed with the patient Bone spur of right foot 4171576186 45956 M25.774 lacing options removed pressure to the overlying area of the midfootno tight shoe gear Health Concerns Section Related Observation LastModified by Organization Detai kasey LastModified Time None Recorded Concern Status LastModified by Organization Details LastModified Time None Recorded Advance Directives Directive None Recorded Payers Encounter Date Sequence Insurance Name Policy Number Policy Benites Covered Member ID Benites Member ID Guarantor Name 04/28/2023 1 [place] Giulia Nair [id number] Giulia Nair 07/28/2023 1 [place] Giulia Nair [id number] 3 Giulia Nair 10/27/2023 1 [place] Giulia Nair [id number] 3 Giulia Nair 01/26/2024 1 [place] Giulia Nair [id number] 3 Giulia Nair 06/07/2024 1 [place] Giulia Nair [id number] 3 Giulia Nair Notes Date Note Type Note Provider Name and Address Organization Details Recorded Time 04/28/2023 text/html Patient is a 73-year-old female who returns the office for follow-up on flexor tenotomy. Patient states that her toes are no longer causing her any pain. Patient denies any wounds or signs of infection. Patient states that she also obtained her orthotics and states that her ankle pain has completely resolved. Patient denies any issues with the power steps. Patient continue supportive shoe gear. Patient denies any other complaints. Reji Rojas DPM [address], [place], [address], [employer] 04/28/2023 14:42:24 07/28/2023 text/html . Patient is a 73-year-old female who returns the office for follow-up on thickened painful toenails. Patient is unable to cut her nails and states they become very painful. Patient denies any redness or drainage. Patient denies any other complaints. Reji Rojas DPM [address], [place], [address], [employer] 07/28/2023 14:36:18 10/27/2023 text/html The patient is a 73-year-old female who returns the office for elongated thickened toenails. Patient states she is unable to cut them due to the pain. Patient denies any redness drainage to the toenails. Patient denies any other complaints. Reji Rojas DPM [address], [place], [address], [employer] 11/03/2023 14:08:38 01/26/2024 text/html Patient is a 73-year-old female who returns the office for routine foot care. Patient states she continues applying topical onychomycosis medication to her toenails secondary to thickening. Patient has pain to the toes due to the onychodystrophy. Patient denies any redness or drainage to the toes. Patient states she has an upcoming surgery on her left knee for knee replacement. Patient states she is unable to bend over to cut her toenails due to the thickened nature and pain. Reji Rojas DPM [address], [place], [address], [employer] 01/30/2024 09:26:58 06/07/2024 text/html . Patient is a 74-year-old female she presents the office with complaints of right foot pain. Patient states when she is walking she has pain in her foot that is over the midfoot. Patient denies any injury the foot. Patient states this has been ongoing for a couple months she states that it typically is a throbbing achy pain. Patient gets a lot of discomfort after she is active and at rest. Patient states she also gets random sharp pains throughout the day that also occur. Patient states that she has had to loosen her shoe gear in order to get relief with walking. Patient denies any other complaints. Reji Rojas DPM [address], [place], [address], [employer] 06/07/2024 15:45:59 OBGyn Episode No OBEpisode recorded.
--- OUTSIDE RECORDS SUMMARY | 2024-08-22 22:10 | XMS_ITS | Clinical Summary ---
Author Organization [facility] Address [address] [place] [address] Care Team Providers Care Orientation And Mobility Instructor Name Role Phone Yvon Crain MD Primary Care Provider Source Comments [facility],non-owned Affiliates and Associated Physician Practices is amultiple site organization consisting of ambulatory clinics and hospital sitesin [place], [place], [place]. This disclosure is being madepursuant to the Care Everywhere program and may not contain all information available regarding this patient. Last updated 18.[facility] Allergies Active Allergy Reactions Criticality Noted Date Comments Adhesive Sensitivity Itching 08/29/2017 Medications * Be aware that medications may not be up to date on this document. Alwaysverify current medications with the patient. Medication Sig Dispensed Refills Start Date End Date Status triamcinolone acetonide (KENALOG) 0.1 % ointment 30 g 1 06/21/2017 Active mupirocin (BACTROBAN) 2 % ointment 30 g 0 06/15/2017 Active levothyroxine (SYNTHROID) 125 MCG tablet Take 125 mcg by mouth DAILY. 06/07/2017 Active tacrolimus (PROTOPIC) 0.1 % ointment Apply to affected area BID. 06/07/2017 Active clotrimazole (LOTRIMIN AF) 1 % cream Apply to affected area BID. 06/07/2017 Active Naproxen Sodium 220 MG Take by mouth. 06/07/2017 Active oxybutynin CR 24hr (DITROPAN-XL) 10 MG tablet Take 10 mg by mouth DAILY. 06/07/2017 Active nystatin (NILSTAT) powder Take by mouth. 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 Family History Medical History Relation Name Comments CVA Neg Hx Cancer - Breast Neg Hx Cancer - Other Neg Hx Cancer - Skin, Melanoma Neg Hx Cancer - Skin, Non Melanoma Neg Hx Eczema Neg Hx Hemophilia Neg Hx Psoriasis Neg Hx Social History Tobacco Use Types Packs/Day Years Used Date Smoking Tobacco: Never Smokeless Tobacco: Never Alcohol Use Standard Drinks/Week Comments No 0 (1 standard drink = 0.6 oz pur e alcohol) Sex and Gender Information Value Date Recorded Sex Assigned at Not on file Gender Identity Not on file Sexual Orientation Not on file Last Filed Vital Signs Vital Sign Reading Time Taken Comments Blood Pressure 135/69 05/29/2013 4:45 PM MECHANICAL SYSTEM TECHNICIAN Pulse 65 05/29/2013 4:45 PM MECHANICAL SYSTEM TECHNICIAN Temperature 36.7 C (98 F) 05/29/2013 3:44 PM MECHANICAL SYSTEM TECHNICIAN Respiratory Rate 24 05/29/2013 4:45 PM MECHANICAL SYSTEM TECHNICIAN Oxygen Saturation 96% 05/29/2013 4:45 PM MECHANICAL SYSTEM TECHNICIAN Inhaled Oxygen Concentration - - Weight - - Height - - Body Mass Index - - Plan of Treatment Health Maintenance Due Date Last Done Comments BONE DENSITY TESTING 1949 COLOGUARD (AGES 45-75) - COL ON CA SCREENING 1949 COLON MONITORING 1949 COLONOSCOPY - COLON CA SCREENING 1949 CT COLONOGRAPHY - COLON CA SCREENING 1949 Colorectal Cancer Screening 1949 FIT - COLON CA SCREENING 1949 FLEX SIG - COLON CA SCREENING 1949 LIPID TESTING 1949 MAMMOGRAM 1949 MEDICARE AWV 12 MONTHS 1949 HEPATITIS C SCREENING 02/21/1967 DTAP/TDAP/TD VACCINES (1 - Tdap) 02/26/1968 PNEUMOCOCCAL VACCINE 50+ (1 of 1 - PCV) 1999 ZOSTER VACCINE (1 of 2) 1999 COVID-19 VACCINE ( - 2023-2 5 season) 2024 Respiratory Syncytial Virus (RSV) Vaccine Pt: or over 60 yrs (1 - 1-dose 75+ series) 02/26/2024 DEPRESSION SCREENING 05/16/2024 INFLUENZA VACCINE (Season Ended) 2025 HEPATITIS B VACCINE Aged Out No longe r eligible based on patient's age to complete this topic HIB VACCINE Aged Out No longer eligi ble based on patient's age to complete this topic HPV VACCINE Aged Out No longer eligi ble based on patient's age to complete this topic MENINGOCOCCAL (Group B) VACC INE SHARED DECISION-MAKING Aged Out No longer eligibl e based on patient's age to complete this topic MENINGOCOCCAL GROUPS A/C/Y/W VACCINE Aged Out No longer eligible b ased on patient's age to complete this topic Care Teams Orientation And Mobility Instructor Relationship Specialty Start Date End Date Yvon Crain MD [address] [place] [address] PCP - General 06/07/17
[2024-08-22 22:15] VITALS: BP 131/52; PULSE 76; RESP 18; TEMP 37.1; O2SAT 96
--- NOTE | 2024-08-23 01:11 | ED.DENTAL ---
HPI - Dental/Oral General Chief complaint: Dental/Oral Stated complaint: dental pain Time Seen by Provider: 08/23/24 00:40 History of Present Illness HPI Narrative: 74-year-old female with history of [place] palsy, hypertension, hypothyroidism presents to the ED family at bedside for dental pain for the past couple of days. Patient states the is located to her left upper tooth. She also is endorsing a cold sore to the left upper lip. She does have history of cold sores. She does have a dentist but unfortunately is unable to see them until October. She believe she needs antibiotics. She denies fever, difficulty breathing or swallowing. Related Data Home Medications ?Medication ?Instructions ?Recorded ?Confirmed ?Last Taken ?Type mirabegron 50 mg tablet,extended 50 mg PO DAILY 07/10/19 07/23/24 Unknown History release 24 hr (Myrbetriq) cholecalciferol (vitamin D3) 50 50 mcg PO DAILY 07/20/22 07/23/24 Unknown History mcg (2,000 unit) capsule acetaminophen 650 mg 650 mg PO PRN PRN Pain 07/20/23 07/23/24 Unknown History tablet,extended release diclofenac sodium 75 mg 75 mg PO BID 07/23/24 07/23/24 Unknown History tablet,delayed release gabapentin 100 mg capsule 100 mg PO QHS PRN 07/23/24 07/23/24 Unknown History loratadine 10 mg tablet (Allergy 10 mg PO DAILY PRN Allergy Symptoms 07/23/24 07/23/24 Unknown History Relief (loratadine)) ropinirole 2 mg tablet 2 mg PO QHS 07/23/24 07/23/24 Unknown History Allergies Allergy/AdvReac Type Severity Reaction Status Date / Time corn syrup Allergy Mild Hives Verified 08/22/24 22:18 starch Allergy Mild Hives Verified 08/22/24 22:18 adhesive Allergy Unknown Rash Verified 08/22/24 22:18 corn Allergy Unknown Hives Verified 07/23/24 14:24 corn starch AdvReac Intermediate Rash Verified 08/22/24 22:18 hydrogenated oil Allergy Unknown Hives Uncoded 08/22/24 22:18 TAPE AdvReac Intermediate RASH Uncoded 08/22/24 22:18 Review of Systems Review of Systems: All systems reviewed & are unremarkable except as noted in HPI and below PMFSH Past Medical History Medical History HTN (hypertension) Other fatigue Osteopenia Vitamin D deficiency Restless leg syndrome Seasonal allergies 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 Hypothyroidism Leg pain, bilateral Edema, lower extremity Eczema of both hands Osteoarthritis Dermatitis Surgical History Surgical History S/P total knee arthroplasty LT TKA 02/01/24 H/O breast biopsy H/O removal of cyst 2014 History of thymectomy 1969 Family History Family History Other Diabetes mellitus Family history of cardiovascular disease Family history of coronary artery disease Family history of malignant neoplasm of breast in first degree relative Family history of malignant neoplasm of uterus Social History Social History Smoking status: Never smoker Second hand tobacco smoke exposure: No Additional smoking assessment comments: DENIES ANY FORM OF TOBACCO USE Alcohol intake: never Substance use: never Substance use type: does not use Do You Feel Safe in your Home?: Yes Lack of Transportation: No Lack of Food: Never True Current Housing: I Have Housing Concerned About Future Housing: No Difficulty Paying Gas/Electric Bills: No Difficulty Paying for Meds: No Currently Unemployed: No Education: Bachelor's Degree Difficulty w/ Childcare or Family Care: No Living arrangements: with family Additional living arrangements comments: Son Occupation/Education: retired Gender identity (if verbalized by the patient): Female Spiritual care concerns: No Exam Narrative: GENERAL: Well-appearing, well-nourished, and in no acute distress. HEAD: Normocephalic, atraumatic. EYES: EOMI. ENT: Nares clear, no rhinorrhea or epistaxis. Mucous membranes moist. Small cavity noted to tooth 10. With tenderness along the gumline, no fluctuance or periapical abscess, no edema. There is a healing HSV lesion to the left upper lip mild surrounding induration. No trismus, no airway compromise, patient is tolerating secretions NECK: Supple. CHEST: Clear to auscultation. No respiratory distress. HEART: Regular rate and rhythm. No murmur heard. Normal peripheral pulses. EXTREMITIES: Normal range of motion. No edema. SKIN: Warm, dry, no rash. NEURO: Alert and oriented x4. 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 Course Vital Signs Vital signs: Vital Signs Temperature 98.7 F 08/22/24 22:15 Pulse Rate 76 08/22/24 22:15 Respiratory Rate 18 08/22/24 22:15 Blood Pressure 131/52 L 08/22/24 22:15 Pulse Oximetry 96 08/22/24 22:15 Oxygen Delivery Room Air 08/22/24 22:15 Temperature 98.7 F 08/22/24 22:15 Pulse Rate 76 08/22/24 22:15 Respiratory Rate 18 08/22/24 22:15 Blood Pressure 131/52 L 08/22/24 22:15 Pulse Oximetry 96 08/22/24 22:15 Oxygen Delivery Room Air 08/22/24 22:15 MDM - Dental/Oral MDM Narrative Medical decision making narrative: 74-year-old female presents to the emergency department for left upper dental pain for the past few days. Vitals are stable. She is afebrile and nontoxic appearing. Exam is significant for a cavity to tooth #10 with tenderness to the gum line. There is no evidence of periapical abscess or deep space infection. No airway compromise. She is tolerating secretions. No trismus. She does have a healing HSV lesion to the left upper lip. Patient was started on Augmentin in the ED for dental infection advised to follow up with her dentist. Tylenol sent for pain. Discussed strict ED return precautions. She is agreeable with the plan and verbalized understanding. Discharged in stable condition. Discharge Plan Discharge Clinical Impression: Pain, dental Patient Disposition: Home Condition: Stable Instructions: Antibiotic Form, Toothache (ED) Additional Instructions: Please take the antibiotics as directed. Follow-up with your dentist. Return to the emergency department if you develop fever 100.4 or greater, difficulty breathing or swallowing, vomiting or other concerning symptoms. Patient Language: B[place] Prescriptions: New amoxicillin-pot clavulanate 875-125 mg tablet 1 tablet PO Q12H Qty: 14 0RF acetaminophen 500 mg capsule 500 mg PO Q6H PRN (Reason: pain) Qty: 20 0RF No Action Myrbetriq 50 mg tablet extended release 24 hr 50 mg PO DAILY cholecalciferol (vitamin D3) 50 mcg (2,000 unit) capsule 50 mcg PO DAILY loratadine [Allergy Relief (loratadine)] 10 mg tablet 10 mg PO DAILY PRN (Reason: Allergy Symptoms) acetaminophen 650 mg tablet extended release 650 mg PO PRN PRN (Reason: Pain) diclofenac sodium 75 mg tablet,delayed release (DR/EC) 75 mg PO BID gabapentin 100 mg capsule 100 mg PO QHS PRN ropinirole 2 mg tablet 2 mg PO QHS nystatin [Nystop] 100,000 unit/gram powder 1 applic TOPICAL BID Qty: 180 2RF Rx Instructions: Apply 2 grams topically to the affected area 2x daily amoxicillin 500 mg capsule 500 mg PO ONCE Qty: 4 2RF Rx Instructions: Take all 4 tablets one hour prior to dental procedure. levothyroxine 137 mcg tablet 137 mcg PO DAILY Qty: 90 1RF Follow-up/Referrals: Char Crain MD [Primary Care Provider] - Stand Alone Forms: Work/School Release IP
--- OUTSIDE RECORDS SUMMARY | 2024-08-23 01:21 | XMS_ITS | Clinical Summary ---
Author Organization [facility] Address [address] [place] [address] Care Team Providers Care Hand Booked Folder And Stitcher Name Role Phone Yvon Crain MD Primary Care Provider Source Comments [facility],non-owned Affiliates and Associated Physician Practices is amultiple site organization consisting of ambulatory clinics and hospital sitesin [place], [place], [place] and [place]. This disclosure is being madepursuant to the Care Everywhere program and may not contain all information available regarding this patient. Last updated 18.[facility] Allergies Active Allergy Reactions Criticality Noted Date [...] Comments Blood Pressure 135/69 05/29/2013 4:45 PM SAFETY PROFESSIONAL Pulse 65 05/29/2013 4:45 PM SAFETY PROFESSIONAL Temperature 36.7 C (98 F) 05/29/2013 3:44 PM SAFETY PROFESSIONAL Respiratory Rate 24 05/29/2013 4:45 PM SAFETY PROFESSIONAL Oxygen Saturation 96% 05/29/2013 4:45 PM SAFETY PROFESSIONAL Inhaled Oxygen Concentration - - Weight - [...] age to complete this topic Care Teams Hand Booked Folder And Stitcher Relationship Specialty Start Date End Date Yvon Crain MD [address] [place] [address] PCP - General 06/07/17
[2024-08-23] MEDS: AMOXICILLIN/CLAVULANATE K 875-125 MG TAB 1 TABLET PO (01:27)
== END 2024-08-23 01:31 | disposition home or self-care (01) ==
PROVIDERS: Emergency Provider Physician Assistant; PCP Family Medicine
DX: K08.89 Other specified disorders of teeth and supporting structures (principal); I10 Essential (primary) hypertension; G25.81 Restless legs syndrome; E03.9 Hypothyroidism, unspecified; M19.90 Unspecified osteoarthritis, unspecified site
CPT/HCPCS: 99283; A9270

== ENCOUNTER 2024-09-11 07:15 | Outpatient (CLI) | payer MEDICARE, SELFPAY ==
--- NOTE | ~2024-09-11 | XR_ITS ---
3 VIEWS LUMBAR SPINE Ordering provider: Char Crain MD History: . M54.50 - Low back pain, unspecified . Comparison: None. FINDINGS: VERTEBRAL BODIES: No visible fracture or subluxation. Degenerative changes of the spine. DISK SPACES: Narrowing of the disc L3-L4, L4-L5 and L5-S1. Facet degenerative disease at the level of L4-L5 and L5-S1. SOFT TISSUES: Normal. IMPRESSION: No acute osseous abnormality lumbar spine. Multilevel degenerative disc disease. Reviewed, dictated and finalized at location A.
--- OUTSIDE RECORDS SUMMARY | 2024-09-11 07:23 | XMS_ITS | Data Portability ---
Author Organization MD - [facility]) [facility], Main Office Address [address] [place] [address] Care Team Providers Care Sales And Marketing Intern Name Role Phone LEROY PONCE Primary Care Provider [phone] LEROY PONCE Referring Provider Assessment Encounter Date Assessment Date Assessment LastModified by Organization Details LastModified Time 04/28/2023 04/28/2023 This note is dictated and transcribed by [employer]. Family Psychologist variances may occur. Despite proofreading, typographical errors may occur. Occasional wrong-word or 'rhwqn-o-ryhn' substitutions may have occurred due to the inherent limitations of voice recording. Read the chart carefully and recognize, using context, where substitutions have occurred. Not available 04/28/2023 14:38:11 07/28/2023 07/28/2023 This note is dictated and transcribed by [employer]. Family Psychologist variances may occur. Despite proofreading, typographical errors may occur. Occasional wrong-word or 'rrums-e-oxwz' substitutions may have occurred due to the inherent limitations of voice recording. Read the chart carefully and recognize, using context, where substitutions have occurred. Not available 07/28/2023 14:29:55 10/27/2023 10/27/2023 This note is dictated and transcribed by [employer]. Family Psychologist variances may occur. Despite proofreading, typographical errors may occur. Occasional wrong-word or 'admjp-l-muva' substitutions may have occurred due to the inherent limitations of voice recording. Read the chart carefully and recognize, using context, where substitutions have occurred. Not available 10/27/2023 15:22:43 01/26/2024 01/26/2024 This note is dictated and transcribed by [employer]. Family Psychologist variances may occur. Despite proofreading, typographical errors may occur. Occasional wrong-word or 'fnpwg-v-fjyz' substitutions may have occurred due to the inherent limitations of voice recording. Read the chart carefully and recognize, using context, where substitutions have occurred. Not available 01/30/2024 09:22:43 06/07/2024 06/07/2024 This note is dictated and transcribed by [employer]. Family Psychologist variances may occur. Despite proofreading, typographical errors may occur. Occasional wrong-word or 'elpfq-d-kend' substitutions may have occurred due to the [...] or more view 2024 025 [email or web address] [facility] Radha Cabral, [address], [place], [address], 15:45:20 Medication Orders diclofenac sodium 75 mg tablet,kinga yed release 2024 025 ARCADIA [employer] [facility], [facility], [address] [place] [address], [id number], 18:33:02 Patient TargetsNo targets recorded. Patient InstructionsNo instructions recorded. Reason for Referral None Reported. Results Created Date Observation Date Name Description Value Unit Range Abnormal Flag Note LastModifiedBy Organization Detail LastModifiedTime 06/07/19 25 XR, foot, 3 or more view No observ ation record ed. [email or web address] [facility] [place] [address], [place], [address], 06/07/2024 15:45:19 Result Notes None recorded. Problems Name Problem SNOMED Code Status Onset Date Resolution Date Notes Provider Name and Address Organization Details Recorded Time Callosity on toe 953137102 Active 2020 Not Available [facility] 3 23:30:03 Contractur e of joint of toe 915421517 Active 2020 Not Available [facility] 3 23:30:03 Pain in toe 187053567 Active 2020 Not Available [facility] 3 23:30:03 Depressive disorder 83076591 Active 2020 Not Available [facility] 3 23:30:03 Arthritis 5512021 Active 2020 Not Available [facility] 3 23:30:03 Contact dermatitis 91648472 Active 2020 Not Available [facility] 3 23:30:03 Anxiety 27816745 Active 2020 Not Available [facility] 3 23:30:03 Dystrophia unguium 64231831 Active 2022 Reji Rojas DPM [address], [place], [address] , [employer] 3 14:21:49 Pain in toe 012610160 Active 2022 Reji Rojas DPM [address], [place], [address] , [employer] 3 14:22:03 Unable to cut own toenails 662887853 Active 2022 Reji Rojas DPM [address], [place], [address] , [employer] 3 14:22:16 Acquired claw toes 41355872 Active 2022 Reji Rojas DPM [address], [place], [address] , [employer] 3 15:22:43 Tendinitis of right posterior tibial tendon 7466354755397 02 Active 2022 Reji Rojas DPM [address], [place], [address] , [employer] 3 11:10:50 Congenital pes planus 43204214 Active 2022 Reji Rojas DPM [address], [place], [address] , [employer] 3 11:12:11 Localized, primary osteoarthr itis of the ankle and/or foot 381537409 Active 2024 Reji Rojas DPM [address], [place], [address] , [employer] 5 15:36:09 Acquired pes planus of left foot 1677740929164 08 Active [address], [place], [address] , [employer] 5 15:40:03 Acquired pes planus of right foot 2106683840279 06 Active 2024 Reji Rojas DPM [address], [place], [address] , [employer] 5 15:40:27 Bone spur of right foot 1151865096014 03 Active 2024 Reji Rojas DPM [address], [place], [address] , [employer] 5 15:40:55 Notes:ALLERGIES, BACK/NECK P ROBLEMS, URINARY/BLADDER/KIDNEY PROBLEMS Problem Notes None recorded. Procedures Surgical History Date Name Laterality Status Provider Name and Address Organization Details Recorded Time 01/26/20 24 Nail Debridement completed SHERI [address], [place], [address], [employer] 01/30/2024 09:22:30 10/27/19 24 Nail Debridement completed SHERI [address], [place], [address], [employer] 10/27/2023 15:22:27 07/28/19 24 Nail Debridement completed Reji Rojas DPM [address], [place], [address], [facility] [employer] [facility] [employer] [facility] 07/28/2023 14:36:09 04/14/20 23 Blank Procedure Note completed Reji Rojas DPM [address], [place], [address], [employer] [facility] [employer] [facility] 04/14/2023 11:08:19 04/11/20 23 Callus Debridement, One completed Reji Rojas DPM [address], [place], [address], [employer] [facility] [employer] [facility] 04/11/2023 15:03:32 03/14/20 23 Blank Procedure Note completed Reji Rojas DPM [address], [place], [address], [employer] [facility] [employer] [facility] 03/14/2023 15:22:21 02/01/20 23 Nail Debridement completed Reji Rojas DPM [address], [place], [address], [employer] [facility] [employer] 01/31/2023 14:21:45 05/16/18 70 hymenectomy completed Not Available [facility] 07/15/19 23:29:19 Imaging Results Imaging Date Name Status LastModified by Organiz ation Details LastModified Time 06/07/2024 XR, foot, 3 or more view completed [email or web address] [facility] [place] [address] [facility] [address], [place], [address], 06/07/2024 15:45:19 Procedure Notes None recorded. Medical Equipment None Reported. Allergies Allergen ID Allergen Name Allergen Category Reaction Reaction Severity Criticality Documentation Date Start Date Code Code System Note Provider Name and Address Organization Details Recorded Time 63868 latex environme nt,medica tion Not available Not available Not available 07/14/2022 95378 91 RxNorm Not Available [facility] 23:31:20 94407 corn syrup food Not available Not available Not available 07/14/2022 52366 76 RxNorm Not Available [facility] 3 23:31:20 26562 corn extract food,medi cation Not available Not available Not available 07/14/2022 32721 08 RxNorm Not Available [facility] 3 23:31:20 Medications Name Sig Start Date [...] % 100 mm[Hg] 61.99 mm[Hg] Krysten Lozano [email or web address] 3 14:14:52 Date Recorded Body height Heart rate Respiratory rate Oxygen saturation Oxygen saturation in Arterial blood by Pulse oximetry Systolic blood pressure Diastolic blood pressure Provider Name and Address Organization Details Last Updated DateTime 4 160.02 cm 71 /min 14 /min 98 % 98 % 117 mm[Hg] 73.99 mm[Hg] Krysten Lozano [employer] [facility] [employer] 4 14:19:00 Date Recorded Body height Body mass index (BMI) Body weight Heart rate Respiratory rate Body temperature Oxygen saturation Oxygen saturation in Arterial blood by Pulse oximetry Systolic blood pressure Diastolic blood pressure Provider Name and Address Organization Details Last Updated DateTime 4 160.02 cm 31.9 kg/m2 25165.6 3 g 72 /min 16 /min 97.5 [degF] 97.5 % 97.5 % 130 mm[Hg] 80 mm[Hg] Karin Horta [email or web address] 4 14:39:45 Date Recorded Body height Body mass index (BMI) Body weight Heart rate Respiratory rate Body temperature Systolic blood pressure Diastolic blood pressure Provider Name and Address Organization Details Last Updated DateTime 4 160.02 cm 31.9 kg/m2 17988.6 3 g 64 /min 14 /min 98.6 [degF] 132 mm[Hg] 82 mm[Hg] Nathalia Nelson MA [email or web address] 4 15:06:20 Date Recorded Body height Body mass index (BMI) Body weight Heart rate Respiratory rate Oxygen saturation Oxygen saturation in Arterial blood by Pulse oximetry Provider Name and Address Organization Details Last Updated DateTime 5 160.02 cm 31.9 kg/m2 06434.6 3 g 87 /min 14 /min 97 % 97 % Krysten Lozano [employer] 5 15:30:31 Social History Question Answer Notes LastModified by Organizat ion Details LastModified Time Tobacco Smoking Status Never Smoker Not Available [facility] 07/14/2022 23:28:50 What Is Your Level Of Alcohol Consumption? None [id number] Information not available 07/14/2022 Sex: Unknown Functional Status None recorded. Mental Status None recorded. Family History Relationship Description Onset Age of this Age Resolved Age Notes LastModified by Organization Details LastModified Time Father Diabetes mellitus [email or web address] [id number] Not available 07/14/2022 23:29:20 Sister Arthritis [email or web address] [id number] Not available 07/14/2022 23:29:20 Sister Hypertensive disorder [email or web address] [id number] Not available 07/14/2022 23:29:20 Mother Arthritis [id number] [id number] Not available 07/14/2022 23:29:20 Paternal Grandmother Heart disease [email or web address] [id number] Not available 07/14/2022 23:29:20 Notes:CANCER-MOTHER/BREAST/U TERINE STROKE-PATERNAL GRANDFATHER Medical History Condition Response DEPRESSION (INCLUDING POST ) Y BACK / NECK PROBLEMS Y ARTHRITIS Y Gynecological HistoryNo gynecological history recorded. Obstetrics History GPAL:G 0 P 0 0 0 0 Past Encounters Encounter ID Performer Location Encounter Start Date Encounter Closed Date Diagnosis/Indication Diagnosis SNOMED-CT Code Diagnosis ICD10 Code Diagnosis Note [id number] _ASHLYN_Jodie IGRATION_ DEFAULT_1 _1 , 12/29/2020 00:00:00 12/29/2020 17:05:28 [id number] _ASHLYN_Jodie IGRATION_ DEFAULT_1 _1 , 01/26/2021 00:00:00 01/27/2021 13:52:38 [id number] [facility] [place] [address] [facility] [place] [address] 01/29/2021 00:00:00 02/03/2021 09:30:52 [id number] _ASHLYN_Jodie IGRATION_ DEFAULT_1 _1 , 03/02/2021 00:00:00 03/11/2021 09:23:45 [id number] _ASHLYN_Jodie IGRATION_ DEFAULT_1 _1 , 03/29/2022 00:00:00 03/29/2022 15:24:35 [id number] Reji Rojas DPM [facility] Radha Cabral [address] [place] [address] 01/31/2023 14:06:25 01/31/2023 14:57:31 Dystrophia unguium 84260469 L60.3 Nails 1 through 10 were debrided with sharp mechanical debridemen t without incident. Nails were debrided and greater than 50% length and thickness where needed. Pain in toe 013535183 M7 9.674 M79.675 secondary to above Unable to cut own toenails 723271386 Z74.1 [id number] Reji Rojas DPM [facility] Podiat[facility] [place] Cabral [address] [place] [address] 03/14/2023 14:09:57 03/14/2023 17:03:51 Pain in toe 731941766 M79.674 M79.675 secondary to above Acquired claw toes 82103 000 M20.5X9 right footrepeat flexor tenotomy right 3rd toe--- Wound care instructio ns reviewedsi gns and symptoms of infection reviewed present seek medical attention immediatel yRecommend offloading continue supportive shoe gearfollow -up 2-3 weeks [id number] Reji Rojas DPM [facility] [place] [address] [place] [address] 04/11/2023 14:10:46 04/12/2023 12:28:11 Pain in toe 910923867 M79.674 M79.675 resolved right 3rd toe Acquired claw toes 25561 000 M20.5X9 right footrepeat flexor tenotomy right 3rd toe-- Healed with rectus position procedure scheduled for for flexor tenotomy of 2nd 4th toes, right Callosity on toe 20090823 01 L84 right 3rd toe distal, debrided without incident [id number] Reji Rojas DPM [facility] [place] [address] [facility] [place] [address] 04/14/2023 10:11:26 04/14/2023 14:01:21 Acquired claw toes 31683896 M20.5X9 right footrepeat flexor tenotomy right 3rd toe-- Healed with rectus positionpr ocedure flexor tenotomy right 2nd and 4th performed todaywound care instructio ns givenmonit or for signs of infection at present seek medical attention immediatel yFollow-up in April 28 Pain in toe 191617744 M7 9.674 M79.675 resolved right 2nd and 4th toes Tendinitis of right posterior tibial tendon 4418211973 32235 M76.821 discussed optionsric e therapyrec ommend continuing supportive shoe gearobtain [employer] [place] low arch orthotics Congenital pes planus 23 822689 Q66.51 as above [id number] Reji Rojas DPM [facility] Podiatry [place] [address] [place] [address] 04/28/2023 14:07:40 04/28/2023 14:44:57 Acquired claw toes 58692405 M20.5X9 right footrepeat flexor tenotomy right 2nd, 3rd, 4th toes-- Healed with rectus positionfo llow-up as needed Pain in toe 135111055 M7 9.674 M79.675 resolved right 2nd and 4th toes Tendinitis of right posterior tibial tendon 7216375207 98717 M76.821 pain resolved with orthoticsc ontinue supportive shoe gear Congenital pes planus 23 707544 Q66.51 as above [id number] Reji Rojas DPM [facility] Podiatry [place] [address] [place] [address] 07/28/2023 14:13:26 07/28/2023 14:53:00 Dystrophia unguium 29389529 L60.3 Nails 1 through 10 were debrided with sharp mechanical debridemen t without incident. Nails were debrided and greater than 50% length and thickness where needed. Pain in toe 825130185 M7 9.674 M79.675 secondary to nails [id number] Reji Rojas DPM [facility] Podiatry [place] [address] [place] [address] 10/27/2023 14:21:43 11/04/2023 08:03:14 Pain in toe 711617034 M79.674 M79.675 secondary to nails Dystrophia unguium 92974 009 L60.3 Nails 1 through 10 were debrided with sharp mechanical debridemen t without incident. Nails were debrided and greater than 50% length and thickness where needed. Unable to cut own toenails 463055811 Z74.1 [id number] Reji Rojas DPM [facility] Podiatry [place] [address] [place] [address] 01/26/2024 14:43:12 01/30/2024 10:27:01 Pain in toe 751092777 M79.674 M79.675 secondary to nails Dystrophia unguium 62292 009 L60.3 Nails 1 through 10 were debrided with sharp mechanical debridemen t without incident. Nails were debrided and greater than 50% length and thickness where needed. [id number] Reij Rojas DPM [facility] Podiatry [place] [address] [place] [address] 06/07/2024 15:13:17 06/08/2024 13:42:41 Localized, primary osteoarthritis of the ankle and/or foot 330462720 M19.079 x-rays reviewedRx diclofenac follow-up 4 weeks Acquired p es planus of right foot 0113382367 70286 M21.41 recommend [employer] orthotics and supportive shoe gear dailyrice therapyx-r ays reviewed with the patient Bone spur of right foot 5086089942 05906 M25.774 lacing options removed pressure to the [...] Benites Member ID Guarantor Name 04/28/2023 1 [place] Giulia Nair [id number] 3 Giulia Nair 07/28/2023 1 [place] Giulia Nair [id number] 3 Giulia Nair 10/27/2023 1 [place] Giulia Nair [id number] 3 Giulia Nair 01/26/2024 1 [place] Giulia Nair [id number] 3 Giulia Nair 06/07/2024 1 [place] Giulia Nair [id number] 3 Giulia Nair Notes Date Note Type [...] Rojas DPM [address], [place], [address], [employer] 04/28/2023 14:42:24 07/28/2023 text/html . Patient is a 73-year-old female who returns the office for follow-up on thickened painful toenails. Patient is unable to cut her nails and states they become very painful. Patient denies any redness or drainage. Patient denies any other complaints. Reji Rojas DPM [address], [place], [address], [employer] 07/28/2023 14:36:18 10/27/2023 text/html The patient is a 73-year-old female who returns the office for elongated thickened toenails. Patient states she is unable to cut them due to the pain. Patient denies any redness drainage to the toenails. Patient denies any other complaints. Reji Rojas DPM [address], [place], [address], [employer] 11/03/2023 14:08:38 01/26/2024 text/html Patient is a [...] Rojas DPM [address], [place], [address], [email or web address] 01/30/2024 09:26:58 06/07/2024 text/html . Patient is [...] Rojas DPM [address], [place], [address], [email or web address] 06/07/2024 15:45:59 OBGyn Episode No OBEpisode recorded.
--- OUTSIDE RECORDS SUMMARY | 2024-09-11 07:23 | XMS_ITS | Clinical Summary ---
Author Organization [facility] Address [address] [place] [address] Care Team Providers Care Book Shelver Name Role Phone Yvon Crain MD Primary Care Provider Source Comments [facility],non-owned Affiliates and Associated Physician Practices is amultiple site organization consisting of ambulatory clinics and hospital sitesin [place], [place], [place] and [place]. This disclosure is being madepursuant to the Care Everywhere program and may not contain all information available regarding this patient. Last updated 18.[facility] Allergies Active Allergy Reactions Criticality Noted Date Comments Adhesive Sensitivity Itching 08/29/2017 Medications * Be aware that medications may not be up to date on this document. Alwaysverify current medications with the patient. triamcinolone acetonide (KENALOG) 0.1 % ointment 30 [...] drink = 0.6 oz pur e alcohol) Comments Unknown Sex and Gender Information Value Date Recorded Sex Assigned at Not on file Legal Sex Female 5:19 PM BOG WORKER Gender Identity Not on file Sexual Orientation Not on file Last Filed Vital Signs Vital Sign Reading Time Taken Comments Blood Pressure 135/69 05/29/2013 4:45 PM BOG WORKER Pulse 65 05/29/2013 4:45 PM BOG WORKER Temperature 36.7 C (98 F) 05/29/2013 3:44 PM BOG WORKER Respiratory Rate 24 05/29/2013 4:45 PM BOG WORKER Oxygen Saturation 96% 05/29/2013 4:45 PM BOG WORKER Inhaled Oxygen Concentration - - Weight - [...] SCREENING 1949 LIPID TESTING 1949 MAMMOGRAM 1949 HEPATITIS C SCREENING 02/21/1967 DTAP/TDAP/TD VACCINES [...] on patient's age to complete this topic Insurance MEDICARE Care Teams Book Shelver Relationship Specialty Start Date End Date Yvon Crain MD [address] [place] [address] PCP - General 06/07/17
== END 2024-09-11 07:16 | disposition home or self-care (01) ==
PROVIDERS: PCP Family Medicine; Visit Provider Family Medicine
DX: M51.369 Other intervertebral disc degeneration, lumbar region without mention of lumbar back pain or lower extremity pain (principal); M51.379 Other intervertebral disc degeneration, lumbosacral region without mention of lumbar back pain or lower extremity pain
CPT/HCPCS: 72110

== ENCOUNTER 2024-11-01 09:39 | Outpatient (CLI) | payer MEDICARE, SELFPAY ==
--- NOTE | ~2024-11-01 | US_ITS ---
Limited Abdominal Sonogram: Real-time sonographic imaging of the right upper quadrant was performed. Clinical History: Abnormal serum enzyme levels Findings: The liver appears mildly echogenic, with no evidence of mass lesion or bile duct dilatatio n. Main portal vein demonstrates normal direction of flow. The gallbladder is well distended, and kelvin ears normal with no evidence of gallstone or wall thickening. The common bile duct measures 6 mm. Th e visualized pancreas, aorta, and IVC are unremarkable. Impression: Probable fatty infiltration of the liver. Reviewed, dictated and finalized at location M. Impression: Probable fatty infiltration of the liver.
--- OUTSIDE RECORDS SUMMARY | 2024-11-01 10:08 | XMS_ITS | Data Portability ---
Author Organization [place] [employer] [facility], Main Office Address [address] [place] [address] Care Team Providers Care Pricing Supervisor Name Role Phone LEROY PONCE Primary Care Provider LEROY PONCE Referring Provider Assessment Encounter Date Assessment Date Assessment LastModified by Organization Details LastModified Time 04/28/2023 04/28/2023 This note is dictated and transcribed by [employer]. Hydraulic Controls Technician variances may occur. Despite proofreading, typographical errors may occur. Occasional wrong-word or 'tlqxj-j-ksaa' substitutions may have occurred due to the inherent limitations of voice recording. Read the chart carefully and recognize, using context, where substitutions have occurred. Not available 04/28/2023 14:38:11 07/28/2023 07/28/2023 This note is dictated and transcribed by [employer]. [employer] Technician variances may occur. Despite proofreading, typographical errors may occur. Occasional wrong-word or 'hieur-x-yrsp' substitutions may have occurred due to the inherent limitations of voice recording. Read the chart carefully and recognize, using context, where substitutions have occurred. Not available 07/28/2023 14:29:55 10/27/2023 10/27/2023 This note is dictated and transcribed by [employer]. Hy[employer] Technician variances may occur. Despite proofreading, typographical errors may occur. Occasional wrong-word or 'ctdov-n-yhtc' substitutions may have occurred due to the inherent limitations of voice recording. Read the chart carefully and recognize, using context, where substitutions have occurred. Not available 10/27/2023 15:22:43 01/26/2024 01/26/2024 This note is dictated and transcribed by [employer]. Hydraulic Controls Technician variances may occur. Despite proofreading, typographical errors may occur. Occasional wrong-word or 'kuhwu-b-arlm' substitutions may have occurred due to the inherent limitations of voice recording. Read the chart carefully and recognize, using context, where substitutions have occurred. Not available 01/30/2024 09:22:43 06/07/2024 06/07/2024 This note is dictated and transcribed by [employer]. Hydraulic [employer] Technician variances may occur. Despite proofreading, typographical errors may occur. Occasional wrong-word or 'wibvm-h-klwx' substitutions may have occurred due to the [...] or more view 2024 025 [email or web address] [facility] Radha Cabral, [address], [place], [address], 15:45:20 Medication Orders diclofenac sodium 75 mg tablet,kinga yed release 2024 025 ALTONA [employer] [facility], [facility], [address] [place] [address], [id number], 18:33:02 Patient TargetsNo targets recorded. Patient InstructionsNo instructions recorded. Reason for Referral None Reported. Results Created Date Observation Date Name Description Value Unit Range Abnormal Flag Note LastModifiedBy Organization Detail LastModifiedTime 06/07/19 25 XR, foot, 3 or more view No observ ation record ed. [email or web address] [facility] [employer] [facility] [employer] [facility] [address], [place], [address], 06/07/2024 15:45:19 Result Notes None recorded. Problems Name Problem SNOMED Code Status Onset Date Resolution Date Notes Provider Name and Address Organization Details Recorded Time Callosity on toe 392040684 Active 2020 Not Available [facility] 3 23:30:03 Contractur e of joint of toe 845913131 Active 2020 Not Available [facility] 3 23:30:03 Pain in toe 284061393 Active 2020 Not Available [facility] 3 23:30:03 Depressive disorder 19120785 Active 2020 Not Available [facility] 3 23:30:03 Arthritis 3767752 Active 2020 Not Available [facility] 3 23:30:03 Contact dermatitis 56936172 Active 2020 Not Available [facility] 3 23:30:03 Anxiety 78542263 Active 2020 Not Available [facility] 3 23:30:03 Dystrophia unguium 30083391 Active 2022 Reji Rojas DPM [address], [place], [address] , [employer] 3 14:21:49 Pain in toe 862103370 Active 2022 Reji Rojas DPM [address], [place], [address] , [employer] 3 14:22:03 Unable to cut own toenails 395004188 Active 2022 Reji Rojas DPM [address], [place], [address] , [employer] 3 14:22:16 Acquired claw toes 42219943 Active 2022 Reji Rojas DPM [address], [place], [address] , [employer] 3 15:22:43 Tendinitis of right posterior tibial tendon 1865623718524 02 Active 2022 Reji Rojas DPM [address], [place], [address] , [employer] 3 11:10:50 Congenital pes planus 10600181 Active 2022 Reji Rojas DPM [address], [place], [address] , [employer] 3 11:12:11 Localized, primary osteoarthr itis of the ankle and/or foot 892672720 Active 2024 Reji Rojas DPM [address], [place], [address] , [employer] 5 15:36:09 Acquired pes planus of left foot 9499561453459 08 Active [address], [place], [address] , [employer] 5 15:40:03 Acquired pes planus of right foot 9441242362779 06 Active 2024 Reji Rojas DPM [address], [place], [address] , [employer] 5 15:40:27 Bone spur of right foot 8799442194798 03 Active 2024 Reji Rojas DPM [address], [place], [address] , [employer] 5 15:40:55 Notes:ALLERGIES, BACK/NECK P ROBLEMS, URINARY/BLADDER/KIDNEY PROBLEMS Problem Notes None recorded. Procedures Surgical History Date Name Laterality Status Provider Name and Address Organization Details Recorded Time 01/26/20 24 Nail Debridement completed SHERI Sherman [address], [place], [address], [employer] 01/30/2024 09:22:30 10/27/19 24 Nail Debridement completed SHERI Sherman [address], [place], [address], [employer] [facility] 10/27/2023 15:22:27 07/28/19 24 Nail Debridement completed Reji Rojas DPM [address], [place], [address], [facility] [employer] [facility] [employer] [facility] 07/28/2023 14:36:09 04/14/20 23 Blank Procedure Note completed Reji Rojas DPM [address], [place], [address], [employer] [facility] [employer] [facility] 04/14/2023 11:08:19 04/11/20 23 Callus Debridement, One completed Reji Rojas DPM [address], [place], [address], [employer] [facility] [employer] [facility] 04/11/2023 15:03:32 03/14/20 23 Blank Procedure Note completed Reji Rojas DPM [address], [place], [address], [employer] [facility] [employer] [facility] 03/14/2023 15:22:21 02/01/20 23 Nail Debridement completed Reji Rojas DPM [address], [place], [address], [employer] [facility] [employer] [facility] 01/31/2023 14:21:45 05/16/18 70 hymenectomy completed Not Available [facility] 07/15/19 23 23:29:19 Imaging Results None recorded. Procedure Notes None recorded. Medical Equipment None Reported. Allergies Allergen ID Allergen Name Allergen Category Reaction Reaction Severity Criticality Documentation Date Start Date Code Code System Note Provider Name and Address Organization Details Recorded Time 91519 latex environme nt,medica tion Not available Not available Not available 07/14/2022 87144 91 RxNorm Not Available [facility] 3 23:31:20 20436 corn syrup food Not available Not available Not available 07/14/2022 42916 76 RxNorm Not Available [facility] 3 23:31:20 87113 corn extract food,medi cation Not available Not available Not available 07/14/2022 10734 08 RxNorm Not Available [facility] 3 23:31:20 Medications Name Sig [...] Not Available Vitals Date Recorded Body height Body mass index (BMI) Body weight Heart rate Respiratory rate Oxygen saturation Oxygen saturation in Arterial blood by Pulse oximetry Provider Name and Address Organization Details Last Updated DateTime 160.02 cm 31.9 kg/m2 73823.6 3 g 87 /min 14 /min 97 % 97 % Krysten JONES - [facility] [employer] [facility] 5 15:30:31 Date Recorded Body height Heart rate Respiratory rate Oxygen saturation Oxygen saturation in Arterial blood by Pulse oximetry Systolic blood pressure Diastolic blood pressure Provider Name and Address Organization Details Last Updated DateTime 4 160.02 cm 71 /min 14 /min 98 % 98 % 117 mm[Hg] 73.99 mm[Hg] Krysten Lozano [facility] [employer] [facility] 4 14:19:00 Date Recorded Body height Body mass index (BMI) Body weight Heart rate Respiratory rate Body temperature Oxygen saturation Oxygen saturation in Arterial blood by Pulse oximetry Systolic blood pressure Diastolic blood pressure Provider Name and Address Organization Details Last Updated DateTime 4 160.02 cm 31.9 kg/m2 58875.6 3 g 72 /min 16 /min 97.5 [degF] 97.5 % 97.5 % 130 mm[Hg] 80 mm[Hg] Karin Horta [facility] [employer] [facility] 4 14:39:45 Date Recorded Body height Body mass index (BMI) Body weight Heart rate Respiratory rate Body temperature Systolic blood pressure Diastolic blood pressure Provider Name and Address Organization Details Last Updated DateTime 4 160.02 cm 31.9 kg/m2 41717.6 3 g 64 /min 14 /min 98.6 [degF] 132 mm[Hg] 82 mm[Hg] Nathalia Nelson MA [facility] [employer] [facility] 4 15:06:20 Date Recorded Body height Heart rate Respiratory rate Oxygen saturation Oxygen saturation in Arterial blood by Pulse oximetry Systolic blood pressure Diastolic blood pressure Provider Name and Address Organization Details Last Updated DateTime 3 160.02 cm 74 /min 14 /min 98 % 98 % 100 mm[Hg] 61.99 mm[Hg] Krysten Lozano [facility] [employer] [facility] 3 14:14:52 Social History None recorded. Functional Status Question Answer Note LastModified by Organizat ion Details LastModified Time What is your level of alcohol consumption? None [id number] Information not available 07/14/2022 Mental Status None recorded. Family History Relationship Description Onset Age of this Age Resolved Age Notes LastModified by Organization Details LastModified Time Father Diabetes mellitus [id number] Not available 07/14/2022 23:29:20 Sister Arthritis [id number] Not available 07/14/2022 23:29:20 Sister Hypertensive disorder [id number] Not available 07/14/2022 23:29:20 Mother Arthritis [id number] Not available 07/14/2022 23:29:20 Paternal Grandmother Heart disease [id number] Not available 07/14/2022 23:29:20 Notes:CANCER-MOTHER/BREAST/U TERINE STROKE-PATERNAL GRANDFATHER Medical History Condition Response ARTHRITIS Y BACK / NECK PROBLEMS Y DEPRESSION (INCLUDING POST ) Y Gynecological HistoryNo gynecological history recorded. Obstetrics History GPAL:G 0 P 0 0 0 0 Past Encounters Encounter ID Performer Location Encounter Start Date Encounter Closed Date Diagnosis/Indication Diagnosis SNOMED-CT Code Diagnosis ICD10 Code Diagnosis Note [id number] SHERI Sherman [facility]_ DEFAULT_1 _1 , 12/29/2020 00:00:00 12/29/2020 17:05:28 [id number] SHERI Sherman [facility]_ DEFAULT_1 _1 , 01/26/2021 00:00:00 01/27/2021 13:52:38 [id number] Reji Rojas DPM [facility] [place] [address] [facility] [address] [place] [address] 01/29/2021 00:00:00 02/03/2021 09:30:52 [id number] SHERI Sherman [facility]_ DEFAULT_1 _1 , 03/02/2021 00:00:00 03/11/2021 09:23:45 [id number] SHERI Sherman [facility]_ DEFAULT_1 _1 , 03/29/2022 00:00:00 03/29/2022 15:24:35 [id number] Reji Rojas DPM [facility] [address] [place] [address] 01/31/2023 14:06:25 01/31/2023 14:57:31 Dystrophia unguium 40075361 L60.3 Nails 1 through 10 were debrided with sharp mechanical debridemen t without incident. Nails were debrided and greater than 50% length and thickness where needed. Pain in toe 326696108 M7 9.674 M79.675 secondary to above Unable to cut own toenails 073328402 Z74.1 [id number] Reji Rojas DPM [facility] [address] [place] [address] 03/14/2023 14:09:57 03/14/2023 17:03:51 Pain in toe 698640675 M79.674 M79.675 secondary to above Acquired claw toes 61449 000 M20.5X9 right footrepeat flexor tenotomy right 3rd toe--- Wound care instructio rose reviewedsi gns and symptoms of infection reviewed present seek medical attention immediatel yRecommend offloading continue supportive shoe gearfollow -up 2-3 weeks [id number] Reji Rojas DPM [facility] [address] [place] [address] 04/11/2023 14:10:46 04/12/2023 12:28:11 Pain in toe 980865749 M79.674 M79.675 resolved right 3rd toe Acquired claw toes 89367 000 M20.5X9 right footrepeat flexor tenotomy right 3rd toe-- Healed with rectus position procedure scheduled for for flexor tenotomy of 2nd 4th toes, right Callosity on toe 4859670 01 L84 right 3rd toe distal, debrided without incident [id number] Reji Rojas DPM [facility] [place] [address] [facility] [address] [place] [address] 04/14/2023 10:11:26 04/14/2023 14:01:21 Acquired claw toes 91645378 M20.5X9 right footrepeat flexor tenotomy right 3rd toe-- Healed with rectus positionpr ocedure flexor tenotomy right 2nd and 4th performed todaywound care instructio rose givenmonit or for signs of infection at present seek medical attention immediatel yFollow-up in April 28 Pain in toe 222326054 M7 9.674 M79.675 resolved right 2nd and 4th toes Tendinitis of right posterior tibial tendon 8249140883 13608 M76.821 discussed optionsric e therapyrec ommend continuing supportive shoe gearobtain [employer] [place] low arch orthotics Congenital pes planus 23 260816 Q66.51 as above [id number] Reji Rojas DPM [facility] [address] [place] [address] 04/28/2023 14:07:40 04/28/2023 14:44:57 Acquired claw toes 43962354 M20.5X9 right footrepeat flexor tenotomy right 2nd, 3rd, 4th toes-- Healed with rectus positionfo llow-up as needed Pain in toe 191333010 M7 9.674 M79.675 resolved right 2nd and 4th toes Tendinitis of right posterior tibial tendon 8853306489 84403 M76.821 pain resolved with orthoticsc ontinue supportive shoe gear Congenital pes planus 23 742907 Q66.51 as above [id number] Reji Rojas DPM [facility] [address] [place] [address] 07/28/2023 14:13:26 07/28/2023 14:53:00 Dystrophia unguium 57117873 L60.3 Nails 1 through 10 were debrided with sharp mechanical debridemen t without incident. Nails were debrided and greater than 50% length and thickness where needed. Pain in toe 218954818 M7 9.674 M79.675 secondary to nails [id number] Reji Rojas DPM [facility] [address] [place] [address] 10/27/2023 14:21:43 11/04/2023 08:03:14 Pain in toe 431542092 M79.674 M79.675 secondary to nails Dystrophia unguium 03404 009 L60.3 Nails 1 through 10 were debrided with sharp mechanical debridemen t without incident. Nails were debrided and greater than 50% length and thickness where needed. Unable to cut own toenails 254998336 Z74.1 [id number] Reji Rojas DPM [facility] [place] [place] [address] 01/26/2024 14:43:12 01/30/2024 10:27:01 Pain in toe 701864400 M79.674 M79.675 secondary to nails Dystrophia unguium 44158 009 L60.3 Nails 1 through 10 were debrided with sharp mechanical debridemen t without incident. Nails were debrided and greater than 50% length and thickness where needed. [id number] Reji Rojas DPM [facility] [address] [place] [address] 06/07/2024 15:13:17 06/08/2024 13:42:41 Localized, primary osteoarthritis of the ankle and/or foot 067476947 M19.079 x-rays reviewedRx diclofenac follow-up 4 weeks Acquired p es planus of right foot 1253368750 61453 M21.41 recommend [employer] orthotics and supportive shoe gear dailyrice therapyx-r ays reviewed with the patient Bone spur of right foot 4183070564 73348 M25.774 lacing options removed pressure to the overlying area of the midfootno tight shoe gear Health Concerns Section Related Observation LastModified by Organization Detai ls LastModified Time None Recorded Concern Status LastModified by Organization Details LastModified Time None Recorded Advance Directives Directive None Recorded Payers Insurance Date Sequence Insurance Name Policy Number Policy Benites Covered Member ID Benites Member ID Guarantor Name 07/12/2024 1 [place] Giulia Nair [id number] 3 Giulia Nair Notes Date Note Type [...] any other complaints. Reji Rojas DPM [address], [place], [address], [employer] 04/28/2023 14:42:24 07/28/2023 text/html . Patient is a 73-year-old female who returns the office for follow-up on thickened painful toenails. Patient is unable to cut her nails and states they become very painful. Patient denies any redness or drainage. Patient denies any other complaints. Reji Rojas DPM [address], [place], [address], [employer] 07/28/2023 14:36:18 10/27/2023 text/html The patient is a 73-year-old female who returns the office for elongated thickened toenails. Patient states she is unable to cut them due to the pain. Patient denies any redness drainage to the toenails. Patient denies any other complaints. Reji Rojas DPM [address], [place], [address], [employer] 11/03/2023 14:08:38 01/26/2024 text/html Patient is a [...] thickened nature and pain. Reji Rojas DPM [address], [place], [address], [employer] [facility] [employer] 01/30/2024 09:26:58 06/07/2024 text/html . Patient is [...] any other complaints. Reji Rojas DPM [address] [facility] [address], [place], [address], [facility] [employer] 06/07/2024 15:45:59 OBGyn Episode No OBEpisode recorded.
--- OUTSIDE RECORDS SUMMARY | 2024-11-01 10:08 | XMS_ITS | Clinical Summary ---
Author Organization [facility] Address [address] [place] [address] Care Team Providers Care Artistic Associate Name Role Phone Yvon Crain MD Primary Care Provider Source Comments [facility],non-owned Affiliates and Associated Physician Practices is amultiple site organization consisting of ambulatory clinics and hospital sitesin [place], [place], [place] and [place]. This disclosure is being madepursuant to the Care Everywhere program and may not contain all information available regarding this patient. Last updated 18.[facility] Allergies Active Allergy Reactions Criticality Noted [...] on file Legal Sex Female 5:19 PM [employer] Gender Identity Not on file Sexual Orientation Not on file Last Filed Vital Signs Vital Sign Reading Time Taken Comments Blood Pressure 135/69 05/29/2013 4:45 PM [employer] Pulse 65 05/29/2013 4:45 PM [employer] Temperature 36.7 C (98 F) 05/29/2013 3:44 PM [employer] Respiratory Rate 24 05/29/2013 4:45 PM [employer] Oxygen Saturation 96% 05/29/2013 4:45 PM [employer] Inhaled Oxygen Concentration - - Weight - [...] complete this topic Insurance MEDICARE Care Teams Artistic Associate Relationship Specialty Start Date End Date Yvon Crain MD [address] [place] [address] PCP - General 06/07/17
== END 2024-11-01 09:40 | disposition home or self-care (01) ==
PROVIDERS: PCP Family Medicine; Visit Provider Nurse Practitioner Family
DX: R74.8 Abnormal levels of other serum enzymes (principal)
CPT/HCPCS: 76705

== ENCOUNTER 2024-11-15 12:26 | Outpatient (CLI) | payer MEDICARE, SELFPAY ==
--- NOTE | ~2024-11-15 | DEXA_ITS ---
Bone Density Report Name: LYNETTE FRIEDMAN Age: 74 Sex: Female Ethnicity: White Date of : 1950 Indication: postmenopausal; screening for osteoporosis; height loss; prior fracture; Referring Provider: Char Crain Study: Bone densitometry was performed. Exam Date: November 15, 2024 Accession number: [id number] Bone Density: Region BMD T-score Z-score Classification AP Spine(L2, L3, L4) 0.958 -1.1 1.4 Osteopenia Femoral Neck (Left) 0.785 -0.6 1.5 Normal Total Hip (Left) 0.908 -0.3 1.5 Normal Femoral Neck (Right) 0.805 -0.4 1.7 Normal Total Hip (Right) 0.965 0.2 2.0 Normal Total Hip Mean 0.937 -0.1 1.8 Normal World Health Organization criteria for BMD impression classify patients as: Normal (T-score at or above -1.0), Osteopenia (T-score between -1.0 and -2.5), or Osteoporosis (T-score at or below -2.5). 10-year Fracture Risk(1): Major Osteoporotic Fracture 13% Hip Fracture 1.5% Reported Risk Factors: [place] (), Neck BMD=0.785, BMI=33.2, previous fracture (1) FRAX(R) Version 3.08. Fracture probability calculated for an untreated patient. Fracture probability may be lower if the patient has received treatment. Previous Exams: -- Region Exam Age BMD T-score BMD Change BMD Change Date g/cm2 vs Baseline vs Previous -- AP Spine (L2-L4) 11/15/2024 74 0.958 -1.1 -6.1%* -5.6%# 04/05/2022 72 1.015 -0.6 -0.5%# -0.5%# 12/06/2019 69 1.019 -0.5 Total Hip(Left) 11/15/2024 74 0.908 -0.3 -9.8%* -7.2%# 04/05/2022 72 0.979 0.3 -2.7%# -2.7%# 12/06/2019 69 1.007 0.5 Total Hip(Right) 11/15/2024 74 0.965 0.2 -4.4%* 0.1%# 04/05/2022 72 0.964 0.2 -4.5%# -4.5%# 12/06/2019 69 1.009 0.6 -- *Denotes significance at 95% confidence level, LSC for AP Spine = 0.022 g/cm2, LSC for Total Hip = 0.027 g/cm2 # Denotes dissimilar scan types or analysis methods Clinical Information Provided by Patient: Has had a low trauma fracture Has used the following medications: Vitamin D, Levothyroxine Patient maximum height was 63.25 Menopause Age: 54 No regular weight bearing exercise Drinks caffeinated beverages Onset of menses at age 13 Number of children 1 Impression: The patient has low bone mass, based on the Total Spine T-score. The patient has an estimated ten-year risk of hip fracture of 1.5% and an estimated ten-year risk of major fracture of 13%, based on the WHO FRAX algorithm. The patient has risk factors, including: previous fracture. Unable to evaluate interval change due to the use of different scan modes. Discussion: BONE DENSITY IS LOW AT ONE OR MORE SKELETAL SITES. This patient's lowest T-score is low at one or more skeletal sites. It meets the World Health Organization's (WHO) criteria for ?low bone mass? (T-score between -1.0 and -2.5). The patient's 10-year risk of fracture as calculated by FRAX is less than the threshold where pharmacological therapy is recommended by the National Osteoporosis Foundation (NOF). However, all treatment decisions require clinical judgment and consideration of individual patient factors, including patient preferences, comorbidities, previous drug use, risk factors not captured in the FRAX model (e.g., frailty, falls, vitamin D deficiency, increased bone turnover, interval significant decline in bone density) and possible under or overestimation of fracture risk by FRAX. The patient should follow a healthful lifestyle (good nutrition with adequate calcium and vitamin D, and appropriate weight-bearing exercise). Follow-Up: Consider repeating this study in 2 to 3 years to reassess this patient's status, or sooner if there is some new clinical indication. Reported by: CHRISTIANO on 11/15/2024 1:17:00 PM. Reviewed, dictated and finalized at location A.
== END 2024-11-15 12:27 | disposition home or self-care (01) ==
PROVIDERS: PCP Family Medicine; Visit Provider Family Medicine
DX: M85.851 Other specified disorders of bone density and structure, right thigh (principal); M85.89 Other specified disorders of bone density and structure, multiple sites; Z13.820 Encounter for screening for osteoporosis
CPT/HCPCS: 77080

== ENCOUNTER 2024-11-29 14:13 | Outpatient (CLI) | payer MEDICARE, SELFPAY ==
--- OUTSIDE RECORDS SUMMARY | 2024-11-29 14:29 | XMS_ITS | Clinical Summary ---
Author Organization [facility] Address [address] [address] Care Team Providers Care Personal Development Coach Name Role Phone Yvon Crain MD Primary Care Provider Source Comments [facility],non-owned Affiliates and Associated Physician Practices is amultiple site organization consisting of ambulatory clinics and hospital sitesin [place], [place], [place] and [place]. This disclosure is being madepursuant to the Care Everywhere program and may not contain all information available regarding this patient. Last updated 18.[facility] Allergies Active Allergy Reactions Criticality Noted Date [...] on file Legal Sex Female 5:19 PM HUB ASSOCIATE Gender Identity Not on file Sexual Orientation Not on file Last Filed Vital Signs Vital Sign Reading Time Taken Comments Blood Pressure 135/69 05/29/2013 4:45 PM HUB ASSOCIATE Pulse 65 05/29/2013 4:45 PM HUB ASSOCIATE Temperature 36.7 C (98 F) 05/29/2013 3:44 PM HUB ASSOCIATE Respiratory Rate 24 05/29/2013 4:45 PM HUB ASSOCIATE Oxygen Saturation 96% 05/29/2013 4:45 PM HUB ASSOCIATE Inhaled Oxygen Concentration - - Weight - [...] series) 02/26/2024 DEPRESSION SCREENING 05/16/2024 INFLUENZA VACCINE (#1) 2025 HEPATITIS B VACCINE Aged Out No [...] complete this topic Insurance MEDICARE Care Teams Personal Development Coach Relationship Specialty Start Date End Date Yvon Crain MD [address] [place] [phone] PCP - General 06/07/17
[2024-11-29 14:31] LABS: Hematocrit 39.4 % (37.0-47.0); Hemoglobin 12.8 g/dL (12.0-15.0); Immature Granulocyte Percent A 0.3 % (0-0.5); Lymphocytes Absolute Auto 1.72 K/mm3 (0.9-3.2); Mean Corpuscular HGB Conc 32.5 g/dl (32-36); Mean Corpuscular Hemoglobin 34.8 pg (26-34); Mean Corpuscular Volume 107.1 fl (80-100); Nucleated Red Blood Cells Absolute Auto 0.000 K/mm3 (0.0-0.012); Nucleated Red Blood Cells Perc 0.0 % (0.0-0.2); Platelet Count Result 219 k/mm3 (150-375); Red Blood Count 3.68 M/mm3 (4.2-5.4); White Blood Count 6.1 K/mm3 (4.5-10.0)
[2024-11-29 15:02] LABS: Macrocytosis 1+ (NORMAL)
[2024-11-29 15:03] LABS: Schistocytes None Seen
== END 2024-11-29 14:14 | disposition home or self-care (01) ==
PROVIDERS: PCP Family Medicine; Visit Provider Orthopaedic Surgery
DX: I10 Essential (primary) hypertension (principal); R53.83 Other fatigue
CPT/HCPCS: 36415; 85025

== ENCOUNTER 2024-12-01 11:32 | Outpatient (NON) | payer MEDICARE, SELFPAY ==
--- OUTSIDE RECORDS SUMMARY | 2024-12-01 11:34 | XMS_ITS | Clinical Summary ---
Author Organization [facility] Address [address] [place] [address] Care Team Providers Care Loss Prevention Agent Name Role Phone Yvon Crain MD Primary Care Provider Source Comments [facility],non-owned Affiliates and Associated Physician Practices is amultiple site organization consisting of ambulatory clinics and hospital sitesin [place], [place], [place] and [place]. This disclosure is being madepursuant to the Care Everywhere program and may not contain all information available regarding this patient. Last updated 18.[facility] Allergies Active Allergy Reactions Criticality Noted Date [...] on file Legal Sex Female 5:19 PM ORACLE DATABASE ADMINISTRATOR Gender Identity Not on file Sexual Orientation Not on file Last Filed Vital Signs Vital Sign Reading Time Taken Comments Blood Pressure 135/69 05/29/2013 4:45 PM ORACLE DATABASE ADMINISTRATOR Pulse 65 05/29/2013 4:45 PM ORACLE DATABASE ADMINISTRATOR Temperature 36.7 C (98 F) 05/29/2013 3:44 PM ORACLE DATABASE ADMINISTRATOR Respiratory Rate 24 05/29/2013 4:45 PM ORACLE DATABASE ADMINISTRATOR Oxygen Saturation 96% 05/29/2013 4:45 PM ORACLE DATABASE ADMINISTRATOR Inhaled Oxygen Concentration - - Weight - [...] complete this topic Insurance MEDICARE Care Teams Loss Prevention Agent Relationship Specialty Start Date End Date Yvon Crain MD [address] [place] [phone] PCP - General 06/07/17
--- OUTSIDE RECORDS SUMMARY | 2024-12-01 11:35 | XMS_ITS | Data Portability ---
Author Organization [place] [facility] [place] [employer], Main Office Address [address] [place] [address] Care Team Providers Care Residential Sales Consultant Name Role Phone LEROY PONCE Primary Care Provider LEROY PONCE Referring Provider [phone] Assessment Encounter Date Assessment Date Assessment LastModified by Organization Details LastModified Time 04/28/2023 04/28/2023 This note is dictated and transcribed by [employer]. Rod Straightener variances may occur. Despite proofreading, typographical errors may occur. Occasional wrong-word or 'vsmrp-v-abhu' substitutions may have occurred due to the inherent limitations of voice recording. Read the chart carefully and recognize, using context, where substitutions have occurred. Not available 04/28/2023 14:38:11 07/28/2023 07/28/2023 This note is dictated and transcribed by [employer]. Rod Straightener variances may occur. Despite proofreading, typographical errors may occur. Occasional wrong-word or 'ilqrp-r-laba' substitutions may have occurred due to the inherent limitations of voice recording. Read the chart carefully and recognize, using context, where substitutions have occurred. Not available 07/28/2023 14:29:55 10/27/2023 10/27/2023 This note is dictated and transcribed by [employer]. Rod Straightener variances may occur. Despite proofreading, typographical errors may occur. Occasional wrong-word or 'bhrbw-f-apen' substitutions may have occurred due to the inherent limitations of voice recording. Read the chart carefully and recognize, using context, where substitutions have occurred. Not available 10/27/2023 15:22:43 01/26/2024 01/26/2024 This note is dictated and transcribed by [employer]. Rod Straightener variances may occur. Despite proofreading, typographical errors may occur. Occasional wrong-word or 'tmoyp-v-fipn' substitutions may have occurred due to the inherent limitations of voice recording. Read the chart carefully and recognize, using context, where substitutions have occurred. Not available 01/30/2024 09:22:43 06/07/2024 06/07/2024 This note is dictated and transcribed by [employer]. Rod Straightener variances may occur. Despite proofreading, typographical errors may occur. Occasional wrong-word or 'ztdcz-t-topm' substitutions may have occurred due to the [...] foot, 3 or more view 2024 025 [email or web address] [facility] Radha Cabral, [address], [place], [address], 15:45:20 Medication Orders diclofenac sodium 75 mg tablet,kinga yed release 2024 025 [place] [employer] [facility], [facility], [address] [place] [address], [phone], 18:33:02 Patient TargetsNo targets recorded. Patient InstructionsNo instructions recorded. Reason for Referral None Reported. Results Created Date Observation Date Name Description Value Unit Range Abnormal Flag Note LastModifiedBy Organization Detail LastModifiedTime 06/07/19 25 XR, foot, 3 or more view No observ ation record ed. [email or web address] [facility] Radha Cabral [address], [place], [address], 06/07/2024 15:45:19 Result Notes None recorded. Problems Name Problem SNOMED Code Status Onset Date Resolution Date Notes Provider Name and Address Organization Details Recorded Time Callosity on toe 497138692 Active 2020 Not Available [facility] 3 23:30:03 Contractur e of joint of toe 480968266 Active 2020 Not Available [facility] 3 23:30:03 Pain in toe 462841696 Active 2020 Not Available [facility] 3 23:30:03 Depressive disorder 50534208 Active 2020 Not Available [facility] 3 23:30:03 Arthritis 8628428 Active 2020 Not Available [facility] 3 23:30:03 Contact dermatitis 17132693 Active 2020 Not Available [facility] 3 23:30:03 Anxiety 02247597 Active 2020 Not Available [facility] 3 23:30:03 Dystrophia unguium 22949202 Active 2022 Reji Rojas DPM [address], [place], [address] , [employer] 3 14:21:49 Pain in toe 674148987 Active 2022 Reji Rojas DPM [address], [place], [address] , [employer] 3 14:22:03 Unable to cut own toenails 379016825 Active 2022 Reji Rojas DPM [address], [place], [address] , [employer] 3 14:22:16 Acquired claw toes 46114852 Active 2022 Reji Rojas DPM [address], [place], [address] , [employer] 3 15:22:43 Tendinitis of right posterior tibial tendon 6934980654548 02 Active 2022 Reji Rojas DPM [address], [place], [address] , [employer] 3 11:10:50 Congenital pes planus 18953884 Active 2022 Reji Rojas DPM [address], [place], [address] , [employer] 3 11:12:11 Localized, primary osteoarthr itis of the ankle and/or foot 959279838 Active 2024 Reji Rojas DPM [address], [place], [address] , [employer] 5 15:36:09 Acquired pes planus of left foot 2693717691585 08 Active 2024 Reji Rojas DPM [address], [place], [address] , [employer] 5 15:40:03 Acquired pes planus of right foot 4917236166177 06 Active 2024 Reji Rojas DPM [address], [place], [address] , [employer] 5 15:40:27 Bone spur of right foot 1983271225077 03 Active 2024 Reji Rojas DPM [address], [place], [address] , [facility] 5 15:40:55 Notes:ALLERGIES, BACK/NECK P ROBLEMS, URINARY/BLADDER/KIDNEY PROBLEMS Problem Notes None recorded. Procedures Surgical History Date Name Laterality Status Provider Name and Address Organization Details Recorded Time 01/26/20 24 Nail Debridement completed SHERI Sherman [address], [place], [address], [email or web address] 01/30/2024 09:22:30 10/27/19 24 Nail Debridement completed Reji Rojas DPM [address], [place], [address], [employer] [facility] [employer] [facility] 10/27/2023 15:22:27 07/28/19 24 Nail Debridement completed Reji Rojas DPM [address], [place], [address], [facility] [employer] [facility] [employer] [facility] 07/28/2023 14:36:09 04/14/20 23 Blank Procedure Note completed Reji Rojas DPM [address], [place], [address], [employer] [facility] 04/14/2023 11:08:19 04/11/20 23 Callus Debridement, One completed Reji Rojas DPM [address], [place], [address], [employer] [facility] [employer] [facility] 04/11/2023 15:03:32 03/14/20 23 Blank Procedure Note completed Reji Rojas DPM [address], [place], [address], [employer] [facility] [employer] [facility] 03/14/2023 15:22:21 02/01/20 23 Nail Debridement completed Reji Rojas DPM [address], [place], [address], [employer] [facility] [employer] 01/31/2023 14:21:45 05/16/18 70 hymenectomy completed Not Available [facility] 07/15/19 23:29:19 Imaging Results None recorded. Procedure Notes None recorded. Medical Equipment None Reported. Allergies Allergen ID Allergen Name Allergen Category Reaction Reaction Severity Criticality Documentation Date Start Date Code Code System Note Provider Name and Address Organization Details Recorded Time 57818 latex environme nt,medica tion Not available Not available Not available 07/14/2022 72927 91 RxNorm Not Available [facility] 3 23:31:20 74864 corn syrup food Not available Not available Not available 07/14/2022 70147 76 RxNorm Not Available [facility] 3 23:31:20 47443 corn extract food,medi cation Not available Not available Not available 07/14/2022 77173 08 RxNorm Not Available [facility] 3 23:31:20 Medications Name Sig Start Date [...] Last Updated DateTime 160.02 cm 31.9 kg/m2 18230.6 3 g 87 /min 14 /min 97 % 97 % Krysten Juarez [facility] [place] [employer] [facility] 5 15:30:31 Date Recorded Body height Heart rate Respiratory rate Oxygen saturation Oxygen saturation in Arterial blood by Pulse oximetry Systolic And Diastolic Provider Name and Address Organization Details Last Updated DateTime 4 160.02 cm 71 /min 14 /min 98 % 98 % 117/73.99 mm[Hg] Krysten Lozano [facility] [employer] [facility] 4 14:19:00 Date Recorded Body height Body mass index (BMI) Body weight Heart rate Respiratory rate Body temperature Oxygen saturation Oxygen saturation in Arterial blood by Pulse oximetry Systolic And Diastolic Provider Name and Address Organization Details Last Updated DateTime 4 160.02 cm 31.9 kg/m2 66853.6 3 g 72 /min 16 /min 97.5 [degF] 97.5 % 97.5 % 130/80 mm[Hg] Karin Mychal [facility] [employer] [facility] 4 14:39:45 Date Recorded Body height Body mass index (BMI) Body weight Heart rate Respiratory rate Body temperature Systolic And Diastolic Provider Name and Address Organization Details Last Updated DateTime 4 160.02 cm 31.9 kg/m2 85351.6 3 g 64 /min 14 /min 98.6 [degF] 132/82 mm[Hg] Nathalia Nelson MA [facility] [employer] [facility] 4 15:06:20 Date Recorded Body height Heart rate Respiratory rate Oxygen saturation Oxygen saturation in Arterial blood by Pulse oximetry Systolic And Diastolic Provider Name and Address Organization Details Last Updated DateTime 3 160.02 cm 74 /min 14 /min 98 % 98 % 100/61.99 mm[Hg] Krysten Lozano [facility] [employer] [facility] 3 14:14:52 Social History None recorded. Functional Status Question Answer Note LastModified by Organizat ion Details LastModified Time What is your level of alcohol consumption? None [id number] Information not available 07/14/2022 Mental Status None recorded. Family History Relationship Description Onset Age of this Age Resolved Age Notes LastModified by Organization Details LastModified Time Father Diabetes mellitus [id number] Not available 07/14/2022 23:29:20 Sister Arthritis [id number] Not available 07/14/2022 23:29:20 Sister Hypertensive disorder [id number] Not available 07/14/2022 23:29:20 Mother Arthritis [id number] Not available 07/14/2022 23:29:20 Paternal Grandmother Heart disease [id number] Not available 07/14/2022 23:29:20 Notes:CANCER-MOTHER/BREAST/U TERINE STROKE-PATERNAL GRANDFATHER Medical History Condition Response DEPRESSION (INCLUDING POST ) Y BACK / NECK PROBLEMS Y ARTHRITIS Y Gynecological HistoryNo gynecological history recorded. Obstetrics History GPAL:G 0 P 0 0 0 0 Past Encounters Encounter ID Performer Location Encounter Start Date Encounter Closed Date Diagnosis/Indication Diagnosis SNOMED-CT Code Diagnosis ICD10 Code Diagnosis Note [id number] SHERI Sherman [facility]_ DEFAULT_1 _1 , 12/29/2020 00:00:00 12/29/2020 17:05:28 [id number] SHERI Sherman [facility]_ DEFAULT_1 _1 , 01/26/2021 00:00:00 01/27/2021 13:52:38 [id number] Reji Rojas DPM [facility] [place] [address] [address] 01/29/2021 00:00:00 02/03/2021 09:30:52 [id number] SHERI Sherman [facility]_ DEFAULT_1 _1 , 03/02/2021 00:00:00 03/11/2021 09:23:45 [id number] SHERI Sherman [facility]_ DEFAULT_1 _1 , 03/29/2022 00:00:00 03/29/2022 15:24:35 [id number] Reji Rojas DPM [facility] [place] [address] [place] [address] 01/31/2023 14:06:25 01/31/2023 14:57:31 Dystrophia unguium 88291158 L60.3 Nails 1 through 10 were debrided with sharp mechanical debridemen t without incident. Nails were debrided and greater than 50% length and thickness where needed. Pain in toe 868540730 M7 9.674 M79.675 secondary to above Unable to cut own toenails 041375866 Z74.1 [id number] Reji Rojas DPM [facility] Radha Cabral [address] [facility] [place] [address] 03/14/2023 14:09:57 03/14/2023 17:03:51 Pain in toe 363830895 M79.674 M79.675 secondary to above Acquired claw toes 43855 000 M20.5X9 right footrepeat flexor tenotomy right 3rd toe--- Wound care instructio rose reviewedsi gns and symptoms of infection reviewed present seek medical attention immediatel yRecommend offloading continue supportive shoe gearfollow -up 2-3 weeks [id number] Reji Rojas DPM [facility] [place] [address] [facility] [place] [address] 04/11/2023 14:10:46 04/12/2023 12:28:11 Pain in toe 421179128 M79.674 M79.675 resolved right 3rd toe Acquired claw toes 53226 000 M20.5X9 right footrepeat flexor tenotomy right 3rd toe-- Healed with rectus position procedure scheduled for for flexor tenotomy of 2nd 4th toes, right Callosity on toe 3918784 01 L84 right 3rd toe distal, debrided without incident [id number] Reji Rojas DPM [facility] [place] [address] [facility] [address] [place] [address] 04/14/2023 10:11:26 04/14/2023 14:01:21 Acquired claw toes 15719172 M20.5X9 right footrepeat flexor tenotomy right 3rd toe-- Healed with rectus positionpr ocedure flexor tenotomy right 2nd and 4th performed todaywound care instructio rose givenmonit or for signs of infection at present seek medical attention immediatel yFollow-up in April 28 Pain in toe 856791766 M7 9.674 M79.675 resolved right 2nd and 4th toes Tendinitis of right posterior tibial tendon 4889052288 84598 M76.821 discussed optionsric e therapyrec ommend continuing supportive shoe gearobtain [employer] [place] low arch orthotics Congenital pes planus 23 255121 Q66.51 as above [id number] Reji Rojas DPM [facility] [place] [address] [place] [address] 04/28/2023 14:07:40 04/28/2023 14:44:57 Acquired claw toes 32038773 M20.5X9 right footrepeat flexor tenotomy right 2nd, 3rd, 4th toes-- Healed with rectus positionfo llow-up as needed Pain in toe 017440690 M7 9.674 M79.675 resolved right 2nd and 4th toes Tendinitis of right posterior tibial tendon 6169204690 58322 M76.821 pain resolved with orthoticsc ontinue supportive shoe gear Congenital pes planus 23 119945 Q66.51 as above [id number] Reji Rojas DPM [facility] [place] [address] [place] [address] 07/28/2023 14:13:26 07/28/2023 14:53:00 Dystrophia unguium 89371119 L60.3 Nails 1 through 10 were debrided with sharp mechanical debridemen t without incident. Nails were debrided and greater than 50% length and thickness where needed. Pain in toe 257161788 M7 9.674 M79.675 secondary to nails [id number] Reji Rojas DPM [facility] [place] [address] [place] [address] 10/27/2023 14:21:43 11/04/2023 08:03:14 Pain in toe 557376976 M79.674 M79.675 secondary to nails Dystrophia unguium 68452 009 L60.3 Nails 1 through 10 were debrided with sharp mechanical debridemen t without incident. Nails were debrided and greater than 50% length and thickness where needed. Unable to cut own toenails 773760124 Z74.1 [id number] Reji Rojas DPM [facility] Pod[facility] Radha Cabral [address] [facility] [address] [address] [place] [address] 01/26/2024 14:43:12 01/30/2024 10:27:01 Pain in toe 485915438 M79.674 M79.675 secondary to nails Dystrophia unguium 68169 009 L60.3 Nails 1 through 10 were debrided with sharp mechanical debridemen t without incident. Nails were debrided and greater than 50% length and thickness where needed. [id number] Reji Rojas DPM [facility] Pod[facility] Radha Cabral [address] [facility] [address] [facility] [address] [place] [address] 06/07/2024 15:13:17 06/08/2024 13:42:41 Localized, primary osteoarthritis of the ankle and/or foot 007054044 M19.079 x-rays reviewedRx diclofenac follow-up 4 weeks Acquired p es planus of right foot 5410768188 38353 M21.41 recommend [employer] orthotics and supportive shoe gear dailyrice therapyx-r ays reviewed with the patient Bone spur of right foot 5383445240 47195 M25.774 lacing options removed pressure to the [...] Benites Member ID Guarantor Name 07/12/2024 1 [place] Giulia Nair [id number] 3 Giulia Nair Notes Date Note Type [...] Rojas DPM [address], [place], [address], [facility] 04/28/2023 14:42:24 07/28/2023 text/html . Patient is a 73-year-old female who returns the office for follow-up on thickened painful toenails. Patient is unable to cut her nails and states they become very painful. Patient denies any redness or drainage. Patient denies any other complaints. Reji Rojas DPM [address], [place], [address], [facility] 07/28/2023 14:36:18 10/27/2023 text/html The patient is a 73-year-old female who returns the office for elongated thickened toenails. Patient states she is unable to cut them due to the pain. Patient denies any redness drainage to the toenails. Patient denies any other complaints. Reji Rojas DPM [address], [place], [address], [facility] [facility] 11/03/2023 14:08:38 01/26/2024 text/html Patient is a [...] Rojas DPM [address], [place], [address], [facility] 01/30/2024 09:26:58 06/07/2024 text/html . Patient is [...] any other complaints. Reji Rojas DPM [address] [facility] [address] [facility] [address], [place], [address], [facility] [employer] [facility] 06/07/2024 15:45:59 OBGyn Episode No OBEpisode recorded.
[2024-12-01 12:55] LABS: Add Urine Microscopic? YES; Appearance Urine Clear (Clear); Glucose Urine UA Negative (Negative); Leukocyte Esterase Ur 1+ LEU/UL (Negative); Nitrate Urine Negative (Negative); Non Pathogenic Casts 0-2; Specific Grav Ur 1.024 (1.001-1.035)
== END 2024-12-01 11:33 | disposition home or self-care (01) ==
LOC: ANHLAB 11:33
PROVIDERS: PCP Family Medicine; Visit Provider Orthopaedic Surgery
DX: R82.90 Unspecified abnormal findings in urine (principal)
CPT/HCPCS: 81001; 87086

== ENCOUNTER 2024-12-12 09:41 | Outpatient (CLI) | payer MEDICARE, SELFPAY ==
--- OUTSIDE RECORDS SUMMARY | 2024-12-12 10:01 | XMS_ITS | Clinical Summary ---
Author Organization [facility] Address [address] [place] [address] Care Team Providers Care Power Plant Operator Name Role Phone Yvon Crain MD Primary Care Provider Source Comments [facility],non-owned Affiliates and Associated Physician Practices is amultiple site organization consisting of ambulatory clinics and hospital sitesin [place], [place], [place] and [place]. This disclosure is being madepursuant to the Care Everywhere program and may not contain all information available regarding this patient. Last updated 18.[facility] Allergies Active Allergy Reactions Criticality Noted [...] on file Legal Sex Female 5:19 PM FOOD CLERK Gender Identity Not on file Sexual Orientation Not on file Last Filed Vital Signs Vital Sign Reading Time Taken Comments Blood Pressure 135/69 05/29/2013 4:45 PM FOOD CLERK Pulse 65 05/29/2013 4:45 PM FOOD CLERK Temperature 36.7 C (98 F) 05/29/2013 3:44 PM FOOD CLERK Respiratory Rate 24 05/29/2013 4:45 PM FOOD CLERK Oxygen Saturation 96% 05/29/2013 4:45 PM FOOD CLERK Inhaled Oxygen Concentration - - Weight - [...] complete this topic Insurance MEDICARE Care Teams Power Plant Operator Relationship Specialty Start Date End Date Yvon Crain MD [address] [place] [address] PCP - General 06/07/17
[2024-12-12 15:15] LABS: Add Urine Microscopic? YES; Appearance Urine Clear (Clear); Glucose Urine UA Negative (Negative); Leukocyte Esterase Ur 1+ LEU/UL (Negative); Nitrate Urine Negative (Negative); Non Pathogenic Casts 0-2; Specific Grav Ur 1.014 (1.001-1.035)
== END 2024-12-12 09:42 | disposition home or self-care (01) ==
PROVIDERS: PCP Family Medicine; Visit Provider Family Medicine
DX: N39.0 Urinary tract infection, site not specified (principal)
CPT/HCPCS: 81001

== ENCOUNTER 2025-01-17 09:47 | Outpatient (CLI) | payer MEDICARE, SELFPAY ==
--- OUTSIDE RECORDS SUMMARY | 2025-01-17 10:17 | XMS_ITS | Clinical Summary ---
Author Organization [facility] Address [address] [place] [address] Care Team Providers Care Job Specification Writer Name Role Phone Yvon Crain MD Primary Care Provider Source Comments [facility],non-owned Affiliates and Associated Physician Practices is amultiple site organization consisting of ambulatory clinics and hospital sitesin [place], [place], [place] and [place]. This disclosure is being madepursuant to the Care Everywhere program and may not contain all information available regarding this patient. Last updated 18.[facility] Allergies Active Allergy Reactions Criticality Noted [...] on file Legal Sex Female 5:19 PM ECONOMIST RESEARCH ASSISTANT Gender Identity Not on file Sexual Orientation Not on file Last Filed Vital Signs Vital Sign Reading Time Taken Comments Blood Pressure 135/69 05/29/2013 4:45 PM ECONOMIST RESEARCH ASSISTANT Pulse 65 05/29/2013 4:45 PM ECONOMIST RESEARCH ASSISTANT Temperature 36.7 C (98 F) 05/29/2013 3:44 PM ECONOMIST RESEARCH ASSISTANT Respiratory Rate 24 05/29/2013 4:45 PM ECONOMIST RESEARCH ASSISTANT Oxygen Saturation 96% 05/29/2013 4:45 PM ECONOMIST RESEARCH ASSISTANT Inhaled Oxygen Concentration - - Weight - [...] complete this topic Insurance MEDICARE Care Teams Job Specification Writer Relationship Specialty Start Date End Date Yvon Crain MD [address] [place] [address] PCP - General 06/07/17
[2025-01-17 12:17] LABS: INR 1.0; Prothrombin Time 13.4 Seconds (11.1-14.7)
[2025-01-17 12:18] LABS: Partial Thromboplastin Time 38.3 Seconds (22.3-36.8)
[2025-01-17 12:24] LABS: Albumin Level 4.1 g/dL (3.5-5.1); Anion Gap 8 mmol/L (4-12); Blood Urea Nitrogen 38 mg/dL (7-17); Calcium 9.4 mg/dL (8.4-10.2); Carbon Dioxide 27 mmol/L (22-30); Chloride 104 mmol/L (98-107); Estimated Glomerular Filt Rate > 60; Glucose 93 mg/dL (65-110); Sodium 139 mmol/L (137-145)
[2025-01-17 12:31] LABS: Potassium 3.9 mmol/L (3.4-5.0)
[2025-01-17 12:41] LABS: Hemoglobin A1C 5.3 % (<5.7)
[2025-01-17 13:41] LABS: MRSA (PCR) DETECTED (NOT DETECTE)
== END 2025-01-17 09:48 | disposition home or self-care (01) ==
PROVIDERS: PCP Family Medicine; Visit Provider Orthopaedic Surgery
DX: Z01.818 Encounter for other preprocedural examination (principal); M17.11 Unilateral primary osteoarthritis, right knee
CPT/HCPCS: 80048; 80307; 82040; 83036; 85610; 85730; 86850; 86860; 86870; 86880; 86900; 86901; 86902; 87641

== ENCOUNTER 2025-01-29 00:15 | Day surgery (SDC) | payer MEDICARE, SELFPAY ==
[2025-01-17 10:15] VITALS: BP 135/66; PULSE 62; RESP 16; TEMP 36.8; O2SAT 95; BMI 34.4
--- NOTE | 2025-01-24 11:24 | PC.NURSE ---
Addendum entered by Michelle Dave RN 01/24/25 11:27: PATIENT GIVEN PRE-OP INSTRUCTION ON DAY OF PRE-OP INTERVIEW. 01/17/25 Original Note: Report to the Outpatient Waiting Room, entrance under the green pavilion located off [facility], at time ___9:30AM____ on date ___01/29/25____. Planned Procedure Time: __11:30AM .? Time changes happen often and if your time is changed the preop area will call you the afternoon before. - You and your visitor will be asked to self-screen and do not enter if you have any COVID symptoms. Please call surgeon if you need to reschedule. - A mask is optional within the hospital at this time. Patients may have clear liquids (water, carbonated beverages, clear teas, apple juice) until 3 hours prior to surgery (8:30AM) with a maximum of 20 ounces. - No food from midnight until time of surgery and no smoking, or chewing tobacco (or any form of nicotine). No chewing gum, candy or mints. Take only the following medications with a SIP of water on the morning of surgery: ___LEVOTHYROXINE DO NOT STOP ANY OF YOUR OTHER PRESCRIPTION MEDICATIONS PRIOR TO SURGERY EXCEPT THE FOLLOWING Hold all vitamins and supplements for 3 days per anesthesiologist. LAST DOSE 01/25/25 Medications to discontinue per physician HOLD DICLOFENAC(NSAIDS) 7 DAYS PRE-OP PER DR GALLAGHER Date to take last dose 01/21/25 Please no make-up, nail divehi, hairspray, perfume, deodorant, or body powder the day of surgery.? No jewelry (including any body piercings) or valuables the day of surgery, leave them at home.? Please take a shower or bath the night before, or the morning of, surgery with an antibacterial soap.? Wear comfortable, loose fitting clothing.? Children are encouraged to wear pajamas. - Jewelry must be removed prior to entering the operating room.? Rings and piercings that are not removed may be cut off. - The hospital will not accept responsibility for valuables.? - Please leave all valuables, including medications, at home the day of surgery. If you are going home after surgery, a licensed electric screw driver operator must drive you home.? - NO public transportation without another adult if you receive anesthesia. - We recommend that an adult stay with you for 24 hours following discharge. - We also recommend that you do not drive, make important decision, drink alcoholic beverages, or take any drugs that were not prescribed by your health care provider for at least 24 hours after your discharge time. For Pediatric surgeries, we recommend two adults accompany the child home. Follow any additional instructions given to you from your surgeon. Telephone instructions given to PATIENT and asked if any additional questions and then verbalized understanding. Patient advised to call surgeon office or pre surgery nurse liaison [phone] if any additional questions.
[2025-01-29] VITALS (13 sets, daily range): BP systolic 107–144; BP diastolic 53–84; PULSE 56–79; RESP 12–18; TEMP 36.1–36.6; O2SAT 92–100
--- NOTE | ~2025-01-29 | XR_ITS ---
EXAMINATION: [id number], 01/29/2025 13:30 CDT HISTORY: RIGHT TKA, POST-OP COMPARISON: No comparisons available. Findings: No acute fracture or malalignment. Prosthesis intact Soft tissues unremarkable. Impression: No acute fracture or malalignment. Reviewed, dictated and finalized at location A. Impression: No acute fracture or malalignment.
--- OUTSIDE RECORDS SUMMARY | 2025-01-29 00:18 | XMS_ITS | Clinical Summary ---
Author Organization [facility] Address [address] [place] [address] Care Team Providers Care Dental Laboratory Supervisor Name Role Phone Yvon Crain MD Primary Care Provider Source Comments [facility],non-owned Affiliates and Associated Physician Practices is amultiple site organization consisting of ambulatory clinics and hospital sitesin [place], [place], [place] and [place]. This disclosure is being madepursuant to the Care Everywhere program and may not contain all information available regarding this patient. Last updated 18.[facility] Allergies Active Allergy Reactions Criticality [...] on file Legal Sex Female 5:19 PM HEALTH SANITARIAN Gender Identity Not on file Sexual Orientation Not on file Last Filed Vital Signs Vital Sign Reading Time Taken Comments Blood Pressure 135/69 05/29/2013 4:45 PM HEALTH SANITARIAN Pulse 65 05/29/2013 4:45 PM HEALTH SANITARIAN Temperature 36.7 C (98 F) 05/29/2013 3:44 PM HEALTH SANITARIAN Respiratory Rate 24 05/29/2013 4:45 PM HEALTH SANITARIAN Oxygen Saturation 96% 05/29/2013 4:45 PM HEALTH SANITARIAN Inhaled Oxygen Concentration - - Weight - [...] 1999 ZOSTER VACCINE (1 of 2) 1999 Respiratory Syncytial Virus (RSV) Vaccine Pt: or over 60 yrs (1 - 1-dose 75+ series) 02/26/2024 DEPRESSION SCREENING 05/16/2024 COVID-19 VACCINE ( - 2023-2 5 season) 2025 INFLUENZA VACCINE (#1) 2025 HEPATITIS B VACCINE [...] complete this topic Insurance MEDICARE Care Teams Dental Laboratory Supervisor Relationship Specialty Start Date End Date Yvon Crain MD [address] [place] [phone] PCP - General 06/07/17
--- NOTE | 2025-01-29 07:10 | WPDHPUPDATE1 ---
History and Physical Update Update Date/Time: 01/29/25 07:10 History and Physical has been reviewed, including an updated exam of the patient. There are NO changes in the patient's condition. Risks, benefits, and alternatives have been discussed and questions answered. Patient agrees to proceed with procedure.
[2025-01-29] MEDS: ACETAMINOPHEN 500 MG TABLET 1000 MG PO (09:55)
[2025-01-29] MEDS: LACTATED RINGERS 1,000 ML 30 ML IV CONT ×2 (10:20→13:14)
[2025-01-29] MEDS: TRANEXAMIC ACID 1,000MG/ISO100 1,000 MG/100 ML BAG 200 MG IVPB (10:23)
--- NOTE | 2025-01-29 10:26 | WPDANESEPPF ---
Anes - Initial Pre Proc Eval Procedure: Operation Date: 01/29/25 11:30 Proposed Procedures p Right Total Knee Arthroplasty - Lance Rogers MD Date/Time: 01/29/25 10:26 Surgeon: Lance Rogers MD Pre Op Diagnosis: right knee DJD Patient Data Age: 74 Gender: F Height: 1.5 m Weight: 77.3 kg Last Vital Signs Temp 98 F 01/29/25 09:35 Pulse 63 01/29/25 09:35 Resp 18 01/29/25 09:35 BP 134/55 L 01/29/25 09:35 Pulse Ox 99 01/29/25 09:35 O2 Del Method Room Air 01/29/25 09:35 Allergies Allergy/AdvReac Type Severity Reaction Status Date / Time corn syrup Allergy Mild Hives Verified 01/29/25 10:10 starch Allergy Mild Hives Verified 01/29/25 10:10 adhesive Allergy Unknown Rash Verified 01/29/25 10:10 corn Allergy Unknown Hives Verified 01/29/25 10:10 corn starch AdvReac Intermediate Rash Verified 01/29/25 10:10 hydrogenated oil Allergy Unknown Hives Uncoded 01/28/25 14:08 TAPE Allergy Unknown Rash Uncoded 01/28/25 14:08 Home Medications ?Medication ?Instructions ?Recorded ?Confirmed ?Type nystatin 100,000 unit/gram topical 1 applic topical BID #180 grams 05/31/19 01/29/25 Rx powder (Nystop) mirabegron 50 mg tablet,extended 50 mg PO DAILY 07/10/19 01/29/25 History release 24 hr (Myrbetriq) cholecalciferol (vitamin D3) 50 50 mcg PO DAILY 07/20/22 01/29/25 History mcg (2,000 unit) capsule gabapentin 100 mg capsule 100 mg PO QHS PRN restless leg(s) 07/23/24 01/29/25 History ropinirole 2 mg tablet 2 mg PO QHS PRN restless leg(s) 09/04/24 01/29/25 History levothyroxine 100 mcg tablet 100 mcg PO DAILY #90 tabs 12/25/24 01/29/25 Rx (Synthroid) MARLEX See Rx Instructions .Route .COMPLEX 01/17/25 01/17/25 History calcium 500 mg (as 1 tablet PO DAILY 01/17/25 01/29/25 History carbonate)-vitamin D3 10 mcg (400 unit) tablet (Calcium 500 + D) cetirizine 10 mg capsule (Allergy 10 mg PO DAILY 01/17/25 01/29/25 History Relief (cetirizine)) clotrimazole-betamethasone 1 1 applic topical BID PRN skin 01/17/25 01/17/25 History %-0.05 % topical cream irritation diphenhydramine HCl 25 mg capsule 25 mg PO Q6-8H PRN itching 01/17/25 01/17/25 History (Banophen) chlorhexidine gluconate 4 % 1 applic topical ONCE #237 mL 01/23/25 01/29/25 Rx topical liquid (Hibiclens) diclofenac sodium 75 mg 75 mg PO BID pain 01/28/25 01/29/25 History tablet,delayed release triamcinolone acetonide 0.1 % 1 applic topical BID PRN skin 01/28/25 01/29/25 Rx topical cream irritation #30 grams Patient hx anesthesia problems: none Family hx anesthesia problems: none Results Review: All pre-operative results and documents have been reviewed as part of the pre-operative evaluation. 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 Leg pain, bilateral Edema, lower extremity Eczema of both hands Osteoarthritis Dermatitis Surgical History Surgical History S/P total knee arthroplasty LT TKA 02/01/24 H/O breast biopsy H/O removal of cyst 2014 History of thymectomy 1969 Family History Family History Other Diabetes mellitus Family history of cardiovascular disease Family history of coronary artery disease Family history of malignant neoplasm of breast in first degree relative Family history of malignant neoplasm of uterus Social History Social History Smoking status: Never smoker Second hand tobacco smoke exposure: No Additional smoking assessment comments: DENIES ANY FORM OF TOBACCO USE Alcohol intake: never Substance use: never Substance use type: does not use Do You Feel Safe in your Home?: Yes Lack of Transportation: No Lack of Food: Never True Current Housing: I Have Housing Concerned About Future Housing: No Difficulty Paying Gas/Electric Bills: No Difficulty Paying for Meds: No Currently Unemployed: No Education: Bachelor's Degree Difficulty w/ Childcare or Family Care: No Living arrangements: with family Additional living arrangements comments: Son Occupation/Education: retired Gender identity (if verbalized by the patient): Female Spiritual care concerns: No Anes - Eval Final PreProcedure Day of Procedure 01/29/25 10:26 Patient weight: obese Lungs: normal air movement Airway: Mallampati scale class III and special considerations (Missing upper R tooth. ) Neurological: alert and oriented Last oral intake: >/= 8 hours ASA classification: III Emergent: no Anesthetic plan: proceed Anesthesia type and monitoring: general LMA and standard monitoring Results Review: All pre-operative results and documents have been reviewed as part of the pre-operative evaluation. Hypothyroidism, arthritis/anxiety. Stress test 2023 nml, LVEF 70%. Informed Consent: The patient's anesthetic plan and its attendant risks and benefits were discussed with the patient/family/POA. Questions were solicited and answers provided to the satisfaction of the patient/family/POA.
--- NOTE | 2025-01-29 10:49 | WPDANESPNB ---
Anes - Peripheral Nerve Block Date/Time: 01/29/25 10:49 I have discussed with the patient/family/POA the placement of a peripheral nerve block for post-operative pain management, including associated risks, benefits, complications, and side effects. Alternative methods of post-operative analgesia were detailed. Questions were solicited and answers provided to the satisfaction of the patient/family/POA. Time-Out: A pre-procedural Time-Out was completed immediately before starting the procedure and confirmed: Patient Identification, Site, Procedure, Patient Position and the Availability of Requisite Equipment. Clinical Indications: Acute post-operative pain management requested by the operative surgeon. Nerve Block Insertion Note Anes-nerve block: adductor canal right Patient position: supine Skin prep: chlorhexidine Needle: 22 gauge, stimulating, insulated echogenic needle. Needle length: 80 mm Technique: ultrasound Injectate: other (Bupiv 0.5% 15 mls. ) Observations: tolerated well Procedure start time:: 1040 Procedure end time:: 1045
[2025-01-29] MEDS: VANCOMYCIN 1,250 MG/NS 250 ML BAG 166.67 MG IVPB (10:50)
[2025-01-29] MEDS: ceFAZolin 2 GM in SODIUM CHLORIDE 0.9% IV 50 ML 100 ML IVPB ×2 (11:02→18:05)
[2025-01-29] MEDS: SODIUM CHLORIDE 0.9% IV 37.7 ML, MORPHINE SULFATE INJ (*CRX) 2 MG, ROPivacaine HCL 1% 2... INFILTRATE (12:02)
[2025-01-29] MEDS: GENTAMICIN BONE CEMENT REFOBACIN 1 EACH TOPICAL (12:19)
[2025-01-29] MEDS: TRANEXAMIC ACID 1,000 MG/10 ML AMPUL 1000 MG IV PUSH (12:30)
--- NOTE | 2025-01-29 13:25 | W.PM.PROC2 ---
Procedure Note - Detailed Date of Procedure 01/29/25 Pre-op Diagnosis right knee DJD Post-op Diagnosis Same Procedure Performed RIGHT TKA Surgeon Lance Rogers MD Anesthesia General Description of Procedure THE RIGHT KNEE WAS PREPPED AND DRAPED IN THE STERILE FASHION. A MIDLINE SKIN INCISION WAS MADE. A MEDIAL PARAPATELLAR ARTHROTOMY WAS MADE. THE PATELLA WAS EVERTED. THERE WAS TRICOMPARTMENT DJD. THERE WAS MINIMAL PATELLA DJD. AN INTRAMEDULLARY JESSICA WAS PLACED IN THE FEMUR. A DISTAL FEMORAL CUT WAS MADE IN 5 DEGREES OF VALGUS REMOVING APPROXIMATELY 9 MM OF BONE FROM THE DISTAL FEMUR. THE FEMUR WAS SIZED TO 60. A 60 FEMORAL CUTTING BLOCK WAS PLACED IN 3 DEGREES OF EXTERNAL ROTATION AND IN ALIGNMENT WITH KASSIE'S LINE AND THE TRANSEPICONDYLAR AXIS. ANTERIOR POSTERIOR AND CHAMFER CUTS WERE MADE. NEXT AN INTRAMEDULLARY CUTTING GUIDE WAS PLACED IN THE TIBIA. A TRANS TIBIAL CUT WAS MADE ALONG THE LONG AXIS OF THE TIBIA. APPROXIMATELY 10 MM OF BONE WAS REMOVED FROM THE HIGH SIDE OF THE TIBIA. THE TIBIA WAS THEN PLANED TO A SMOOTH SURFACE. POSTERIOR FEMORAL OSTEOPHYTES WERE REMOVED FROM THE FEMORAL CONDYLES. A 67 TIBIAL TRIAL WAS PLACED IN ALIGNMENT WITH THE 1/3 MEDIAL ASPECT OF THE TIBIAL TUBERCLE. THEN A 60 FEMORAL TRIAL COMPONENT WAS PLACED. BOTH HAD EXCELLENT FITS. EVENTUALLY A 10 MM CR POLYETHYLENE TRIAL COMPONENT WAS PLACED. THE KNEE WAS TAKEN THROUGH A RANGE OF MOTION. THE KNEE CAME OUT TO FULL EXTENSION. THERE WAS NO ABNORMAL TILT TO THE PATELLA. THERE WAS GOOD A/P AND VARUS/VALGUS STABILITY. THERE WAS NO EXCESSIVE ROLL BACK WITH FLEXION. THE TRIAL COMPONENTS WERE REMOVED. THEN A 60 FEMORAL COMPONENT AND 67 TIBIAL COMPONENT WITH A 10 CR POLYETHYLENE COMPONENT WERE CEMENTED INTO PLACE. ONCE THE CEMENT WAS HARD THE KNEE WAS TAKEN THROUGH A ROM AGAIN AND FOUND TO BE STABLE WITH NO PATELLA TILT NO EXCESSIVE ROLL BACK WITH FLEXION AND GOOD STABILITY WITH COMPLETE AND FULL EXTENSION. THE KNEE WAS IRRIGATED WITH STERILE BETADINE AND WATER FOR ABOUT 3 MINUTES. THE BLEEDERS WERE CAUTERIZED. THE ARTHROTOMY WAS REPAIRED WITH NUMBER 1 VICRYL. THE SUB CUTANEOUS LAYER WITH 2-0 VICRYL AND THE SKIN WITH JEAN. THE WOUND WAS WASHED AND A STERILE DRESSING WAS APPLIED. PATIENT WAS EXTUBATED. SHE WAS SENT TO RECOVERY ROOM IN STABLE CONDITION Estimated Blood Loss -150.0 Pathology None sent Complications No immediate complications Condition Stable Disposition PACU
[2025-01-29] MEDS: fentaNYL CITRATE INJ (*CRX) 100 MCG/2 ML VIAL 25 MCG IV PUSH ×2 (13:43→13:55)
[2025-01-29] MEDS: diazePAM (*CRX) 5 MG TABLET PO (15:15)
--- NOTE | 2025-01-29 15:23 | ADMGEN ---
This patient, Giulia Nair, was admitted to 3 Med Surg Room 324-01. Patient/family oriented to hospital policies and general routines including ID bracelet, bed and alarms, visiting hours, pain management, procedures, bathroom and other care routines, personal items, smoking policy, room service/diet, and visiting hours. Information on how to activate the Rapid Response Team has been discussed. Patient/Family are encouraged to report perceived risks to care and to ask questions if they do not understand what they are told or what they should do. Report from Sherrie in OR.
[2025-01-29] MEDS: [UNRECOGNIZED DRUG - REMARK] XX (16:21)
[2025-01-29] MEDS: SENNA/DOCUSATE SODIUM TABLET 2 TAB PO (16:30)
[2025-01-29] MEDS: CELECOXIB 200 MG CAPSULE PO (16:30)
[2025-01-29] MEDS: ASPIRIN 325 MG ENTERIC TABLET PO (20:32)
[2025-01-29] MEDS: FAMOTIDINE 20 MG TABLET PO (20:32)
[2025-01-29] MEDS: VANCOMYCIN HCL 1,000 MG in SODIUM CHLORIDE 0.9% IV 250 ML 250 MG IVPB (22:20)
[2025-01-30 00:26] VITALS: BP 116/55; PULSE 62; RESP 16; TEMP 36.4; O2SAT 96
[2025-01-30] MEDS: ceFAZolin 2 GM in SODIUM CHLORIDE 0.9% IV 50 ML 100 ML IVPB ×2 (02:39→11:41)
[2025-01-30 04:46] VITALS: BP 100/51; PULSE 71; RESP 16; TEMP 36.5; O2SAT 92
[2025-01-30] MEDS: LEVOTHYROXINE SODIUM 100 MCG TABLET PO (06:20)
[2025-01-30 06:21] LABS: Hematocrit 28.8 % (37.0-47.0); Hemoglobin 9.1 g/dL (12.0-15.0); Immature Granulocyte Percent A 0.4 % (0-0.5); Lymphocytes Absolute Auto 1.08 K/mm3 (0.9-3.2); Mean Corpuscular HGB Conc 31.6 g/dl (32-36); Mean Corpuscular Hemoglobin 34.9 pg (26-34); Mean Corpuscular Volume 110.3 fl (80-100); Nucleated Red Blood Cells Absolute Auto 0.000 K/mm3 (0.0-0.012); Nucleated Red Blood Cells Perc 0.0 % (0.0-0.2); Platelet Count Result 175 k/mm3 (150-375); Red Blood Count 2.61 M/mm3 (4.2-5.4); White Blood Count 10.0 K/mm3 (4.5-10.0)
[2025-01-30 06:40] LABS: Anion Gap 6 mmol/L (4-12); Blood Urea Nitrogen 21 mg/dL (7-17); Calcium 7.9 mg/dL (8.4-10.2); Carbon Dioxide 25 mmol/L (22-30); Chloride 106 mmol/L (98-107); Estimated Glomerular Filt Rate > 60; Glucose 101 mg/dL (65-110); Potassium 3.5 mmol/L (3.4-5.0); Sodium 137 mmol/L (137-145)
[2025-01-30] MEDS: ASPIRIN 325 MG ENTERIC TABLET PO (08:17)
[2025-01-30] MEDS: CELECOXIB 200 MG CAPSULE PO (08:17)
[2025-01-30] MEDS: SENNA/DOCUSATE SODIUM TABLET 2 TAB PO (08:18)
[2025-01-30] MEDS: MIRABEGRON 50 MG ER TABLET PO (08:19)
[2025-01-30 08:26] VITALS: BP 94/46; PULSE 73; RESP 18; TEMP 37.1; O2SAT 93
[2025-01-30 08:44] LABS: Anisocytosis 1+; Macrocytosis 1+ (NORMAL); Schistocytes None Seen
[2025-01-30 09:35] VITALS: BP 104/60
[2025-01-30] MEDS: VANCOMYCIN HCL 1,000 MG in SODIUM CHLORIDE 0.9% IV 250 ML 250 MG IVPB (11:43)
[2025-01-30] MEDS: oxyCODONE/ACETAMINOPHEN (*CRX) 5-325 MG TABLET 1 TABLET PO (12:09)
[2025-01-30 12:26] VITALS: BP 104/56; PULSE 73; RESP 20; TEMP 36.9; O2SAT 92
--- NOTE | 2025-01-30 13:50 | WPDANESPN ---
Anes - Prog Note Post-Op Date/Time: 01/30/25 13:50 Cardiovascular status: normal Respiratory status: normal Airway patency: baseline Mental status: baseline Post-Op hydration status: normal Vital Signs: Last Vital Signs Temp 37.1 C 01/30/25 08:26 Pulse 73 01/30/25 08:26 Resp 18 01/30/25 08:26 BP 104/60 01/30/25 09:35 Pulse Ox 93 01/30/25 08:26 O2 Del Method Room Air 01/30/25 11:38 O2 Flow Rate 2 01/29/25 14:15 Pain Score (VAS): 0 I/O: Intake & Output 01/29/25 01/30/25 01/30/25 23:59 07:59 15:59 Intake Total 1090 500 480 Balance 1090 500 480 Laboratory Tests 01/30/25 05:50 01/30/25 05:50 01/30/25 05:50 WBC 10.0 RBC 2.61 L Hgb 9.1 L D Hct 28.8 L MCV 110.3 H MCH 34.9 H MCHC 31.6 L RDW 14.3 Plt Count 175 MPV 11.6 H Immature Gran % (Auto) 0.4 Neut % (Auto) 75.8 H Lymph % (Auto) 10.8 L Reynolds % (Auto) 12.3 H Eos % (Auto) 0.3 Baso % (Auto) 0.4 Lymph # (Auto) 1.08 Reynolds # (Auto) 1.2 H Eos # (Auto) 0.0 Baso # (Auto) 0.0 Abs Immat Gran (auto) 0.04 H Absolute Neuts (auto) 7.6 H Absolute Nucleated RBC 0.000 Band Neutrophils % Not Reportable Nucleated RBC % 0.0 Platelet Estimate Adequate Anisocytosis 1+ Macrocytosis 1+ Schistocytes None seen Sodium 137 Potassium 3.5 Chloride 106 Carbon Dioxide 25 Anion Gap 6 BUN 21 H D Creatinine 0.64 L Estim Creat Clear Calc Not Reportable Estimated GFR > 60 Glucose 101 Calcium 7.9 L Post-procedural complaints: none Patient Feedback: Patient satisfied with anesthetic care.
--- NOTE | 2025-01-30 14:56 | PM.PNORT ---
Progress Note: A&P Assessment and Plan (1) S/P total knee arthroplasty: Qualifiers: Laterality: left Qualified Code(s): Z96.652 - Presence of left artificial knee joint Code(s): Z96.659 - Presence of unspecified artificial knee joint Status: Acute Assessment and Plan: POD 1 DOING WELL. OK TO DC HOME F/U IN 3 WEEKS Subjective Subjective Date/Time Seen: 01/30/25 14:56 Interval history: POD 1 DOING WELL. NO CALF PAIN. PAIN WELL CONTROLLED. GOOD PROGRESS WITH PT Exam Extrem: Other: VSS AFEBRILE DRESSING DRY NV INTACT NEG HOMANS SIGN CALF SOFT NON TENDER Objective Data Vital Signs Vital Signs: Vital Signs - 24 hr 01/29/25 15:00 01/29/25 15:30 01/29/25 16:30 Temperature 36.2 C L 36.3 C L 36.5 C Pulse Rate 69 66 66 Respiratory Rate 18 18 18 Blood Pressure 126/59 L 127/57 L 114/55 L Pulse Oximetry 92 97 93 Oxygen Delivery 01/29/25 20:00 01/29/25 20:50 01/29/25 22:08 Temperature 36.6 C Pulse Rate 75 75 Respiratory Rate 16 16 Blood Pressure 107/53 L Pulse Oximetry 95 95 95 Oxygen Delivery Room Air Room Air 01/30/25 00:26 01/30/25 04:46 01/30/25 08:00 Temperature 36.4 C 36.5 C Pulse Rate 62 71 Respiratory Rate 16 16 Blood Pressure 116/55 L 100/51 L Pulse Oximetry 96 92 Oxygen Delivery Room Air 01/30/25 08:26 01/30/25 09:35 01/30/25 10:14 Temperature 37.1 C Pulse Rate 73 Respiratory Rate 18 Blood Pressure 94/46 L 104/60 Pulse Oximetry 93 Oxygen Delivery Room Air 01/30/25 11:38 Temperature Pulse Rate Respiratory Rate Blood Pressure Pulse Oximetry Oxygen Delivery Room Air Intake/Output Intake/Output: Intake & Output 01/27/25 01/28/25 01/29/25 01/30/25 23:59 23:59 23:59 23:59 Intake Total 1240 980 Balance 1240 980 Meds/Results Medications: Active Medications Generic Name Dose Route Start Last Admin Trade Name Freq PRN Reason Stop Dose Admin Aspirin 325 mg 01/29/25 21:00 01/30/25 08:17 Aspirin 325 Mg Enteric Tablet PO 325 mg Q12HR TYRELL Administration Celecoxib 200 mg 01/29/25 17:00 01/30/25 08:17 Celecoxib 200 Mg Capsule PO 200 mg BIDWM TYRELL Administration Diazepam 5 mg 01/29/25 14:41 01/29/25 15:15 Diazepam (*Crx) 5 Mg Tablet PO 5 mg Q8H PRN Administration Spasms Diclofenac Sodium 75 mg 01/29/25 17:00 Diclofenac Sod 75 Mg Tablet.Ec PO On Hold: 01/29/25 17:00 BID TYRELL Comment: HOLD DICLOFENAC AND GIVE CELEBREX 200MG Diphenhydramine HCl 25 mg 01/29/25 14:41 Diphenhydramine Hcl Inj 50 Mg/Ml Vial IV PUSH Q6H PRN Itching Famotidine 20 mg 01/29/25 21:00 01/30/25 08:19 Famotidine 20 Mg Tablet PO Not Given Q12HR TYRELL Gabapentin 100 mg 01/29/25 14:41 Gabapentin 100 Mg Capsule PO QHS PRN restless leg(s) Hydromorphone HCl 1 mg 01/29/25 14:41 Hydromorphone Hcl Inj (*Crx) 1 Mg/Ml Syr IV PUSH Q2H PRN Breakthrough Pain Rated 7-10 or NPO Hydromorphone HCl 0.5 mg 01/29/25 14:41 Hydromorphone Hcl Inj (*Crx) 1 Mg/Ml Syr IV PUSH Q2H PRN Breakthrough Pain Rated 4-6 or NPO Ibuprofen 800 mg in 200 mls @ 400 mls/hr 01/29/25 14:41 Caldolor 800 Mg/200 Ml IVPB Q6H PRN Breakthrough Pain Rated 1-3 or NPO Levothyroxine Sodium 100 mcg 01/30/25 06:30 01/30/25 06:20 Levothyroxine Sodium 100 Mcg Tablet PO 100 mcg DAILY@0630 TYRELL Administration Mirabegron 50 mg 01/30/25 09:00 01/30/25 08:19 Mirabegron 50 Mg Er Tablet PO 50 mg DAILY TYRELL Administration Naloxone HCl 0.1 mg 01/29/25 14:41 Naloxone Hcl 0.4 Mg/Ml Vial IV PUSH Q2M PRN Opiate Reversal Ondansetron HCl 4 mg 01/29/25 14:41 Ondansetron Inj 4 Mg/2 Ml Vial IV PUSH Q4H PRN Nausea And Vomiting Oxycodone/Acetaminophen 1 tablet 01/29/25 14:41 01/30/25 12:09 Oxycodone/Acetaminophen (*Crx) 5-325 Mg Tablet PO 1 tablet Q4H PRN Administration Pain Rated 4-6 Oxycodone/Acetaminophen 1 tab 01/29/25 14:41 Oxycodone/Acetaminophen (*Crx) 10-325 Mg Tablet PO Q6H PRN Pain Rated 7-10 Polyethylene Glycol 17 gm 01/30/25 09:00 01/30/25 08:19 Polyethylene Glycol 3350 17 Gm Powd.Pack PO Not Given QAM TYRELL Ropinirole HCl 2 mg 01/29/25 14:41 Ropinirole Hcl 1 Mg Tablet PO QHS PRN restless leg(s) Senna/Docusate Sodium 2 tab 01/29/25 17:00 01/30/25 08:18 Senna/Docusate Sodium Tablet PO 2 tab BID TYRELL Administration Radiology Results: ITS Impressions Knee X-Ray 01/29/25 14:07 Impression: No acute fracture or malalignment. Labs Labs: Laboratory Results - last 24 hr 01/30/25 05:50 WBC 10.0 RBC 2.61 L Hgb 9.1 L D Hct 28.8 L MCV 110.3 H MCH 34.9 H MCHC 31.6 L RDW 14.3 Plt Count 175 MPV 11.6 H Immature Gran % (Auto) 0.4 Neut % (Auto) 75.8 H Lymph % (Auto) 10.8 L Hooker % (Auto) 12.3 H Eos % (Auto) 0.3 Baso % (Auto) 0.4 Lymph # (Auto) 1.08 Hooker # (Auto) 1.2 H Eos # (Auto) 0.0 Baso # (Auto) 0.0 Abs Immat Gran (auto) 0.04 H Absolute Neuts (auto) 7.6 H Absolute Nucleated RBC 0.000 Band Neutrophils % Not Reportable Nucleated RBC % 0.0 Platelet Estimate Adequate Anisocytosis 1+ Macrocytosis 1+ Schistocytes None seen Sodium 137 Potassium 3.5 Chloride 106 Carbon Dioxide 25 Anion Gap 6 BUN 21 H D Creatinine 0.64 L Estim Creat Clear Calc Not Reportable Estimated GFR > 60 Glucose 101 Calcium 7.9 L
== END 2025-01-30 15:48 | disposition home or self-care (01) ==
LOC: ANHSURGERY 09:22 → ANH3MEDSUR 01-30 12:45
PROVIDERS: PCP Family Medicine; Visit Provider Orthopaedic Surgery
PROC: (CPT 27447; principal; 2025-01-29 11:30)
DX: M17.11 Unilateral primary osteoarthritis, right knee (principal); M25.761 Osteophyte, right knee; G89.18 Other acute postprocedural pain; E03.9 Hypothyroidism, unspecified; I10 Essential (primary) hypertension; E55.9 Vitamin D deficiency, unspecified; F41.9 Anxiety disorder, unspecified; G25.81 Restless legs syndrome; M16.0 Bilateral primary osteoarthritis of hip; R53.83 Other fatigue; M85.88 Other specified disorders of bone density and structure, other site; G89.29 Other chronic pain; M54.50 Low back pain, unspecified; E66.9 Obesity, unspecified; Z68.34 Body mass index [BMI] 34.0-34.9, adult; Z98.890 Other specified postprocedural states; Z96.652 Presence of left artificial knee joint; Z80.3 Family history of malignant neoplasm of breast; Z80.49 Family history of malignant neoplasm of other genital organs; Z82.49 Family history of ischemic heart disease and other diseases of the circulatory system
CPT/HCPCS: 64447; 27447; 36415; 73560; 80048; 85025; 97110; 97116; 97161; 97166; 97530; J0690; A9270; C1713; C1776; J0166; J1100; J1885; J2003; J2270; J2405; J2704; J2795; J3010; J3373; J7050; J7120

== ENCOUNTER 2025-04-02 13:18 | Outpatient (CLI) | payer MEDICARE, SELFPAY ==
--- NOTE | ~2025-04-02 | MM_ITS ---
EXAMINATION: MM screening [facility] BI w vikash HISTORY: Screening TECHNIQUE: Craniocaudal and mediolateral oblique 3-D tomosynthesis images were obtained and synthetic 2-D images were generated. CAD analysis was submitted and interpreted. COMPARISON: Comparison to multiple prior studies sequentially, with oldest reviewed study dated 10/18/2022. BREAST PARENCHYMAL COMPOSITION: Not dense: There are scattered areas of fibroglandular density. FINDINGS: There is no evidence of suspicious mass, calcification, or architectural distortion to suggest malignancy in either breast. There has been no suspicious interval change. IMPRESSION: 1. No mammographic evidence of malignancy. 2. Recommend routine screening mammography in one year. BI-RADS Category 1: Negative Reviewed, dictated and finalized at location O. R ACCOUNT REPRESENTATIVE
== END 2025-04-02 13:19 | disposition home or self-care (01) ==
LOC: MICIMG 13:19
PROVIDERS: PCP Family Medicine; Visit Provider Surgery
DX: Z12.31 Encounter for screening mammogram for malignant neoplasm of breast (principal)
CPT/HCPCS: 77063; 77067